=== PATIENT | female | born 1965 | race Caucasian/White ===

== ENCOUNTER 2017-05-24 13:51 | Emergency (ER) | payer OTHER ==
--- NOTE | 2017-05-24 14:41 | XR ---
EXAMINATION TYPE: XR ankle complete RT DATE OF EXAM: 05/24/2017 COMPARISON: NONE HISTORY: Pain FINDINGS: Three views of the ankle demonstrate comminuted fracture the distal fibula with displacement as well as the medial malleolus or fracture with displacement and dislocation of the ankle joint and distorti on of the ankle mortise. Cannot exclude a chip fracture off the posterior tibia. Large calcaneal spur s noted. IMPRESSION: 1. Fracture with displacement involving the distal tibia and fibula and dislocation of the ankle join t.
--- NOTE | 2017-05-24 14:43 | XR ---
EXAMINATION TYPE: XR tibia fibula RT DATE OF EXAM: 05/24/2017 COMPARISON: NONE HISTORY: Pain TECHNIQUE: Two views are submitted. FINDINGS: There displaced fractures involving the distal tibia and fibula. Displacement of the lateral malleolu s and medial malleoli fractures are seen. Cannot exclude chip fracture of the distal posterior tibia. IMPRESSION: 1. Displaced fractures involving the distal tibia and fibula with ankle dislocation.
--- NOTE | 2017-05-24 14:44 | XR ---
EXAMINATION TYPE: XR foot complete RT DATE OF EXAM: 05/24/2017 COMPARISON: NONE HISTORY: Pain TECHNIQUE: Three views are submitted. FINDINGS: There are displaced fractures involving the distal tibia and fibula. Displacement of the lateral mall eolus and medial malleoli fractures are seen. Cannot exclude chip fracture of the distal posterior ti thaddeus. Arthropathy of the first MTP joint. Calcaneal spurs noted. IMPRESSION: 1. Displaced fractures involving the distal tibia and fibula with ankle dislocation.
[2017-05-24 15:11] LABS: Glucose,Whole Blood 300 mg/dL (75-99)
[2017-05-24] MEDS ORDERED: SODIUM CHLORIDE 0.9% 1,000 ML IV ONE (15:11)
[2017-05-24] MEDS ORDERED: HYDROmorphone 1 MG/ML 1 ML SYRINGE IVP STA (15:11)
[2017-05-24] MEDS ORDERED: SODIUM CHLORIDE 0.9% 1,000 ML IV SCH (15:15)
[2017-05-24] MEDS ORDERED: PROPOFOL 10 MG/ML 20 ML VIAL IV STA (15:24)
--- NOTE | 2017-05-24 15:27 | ED ---
Lower Extremity Injury HPI - General Chief Complaint: Extremity Injury, Lower Stated Complaint: R ankle injury Time Seen by Provider: 05/24/17 14:45 Source: patient, RN notes reviewed, old records reviewed Mode of arrival: wheelchair Limitations: no limitations - History of Present Illness Initial Comments: this is a 51-year-old female presents emergency Department chief complaint of right ankle pain and swelling and dislocation. Patient reports that she has history of diabetes. Reports that she was having a low blood sugar episode and her blood sugar was 60. She reports that she felt faint, and fell. She fell she didn't lose consciousness but twisted her ankle. Patient states that she then sat on the floor for approximately 1 hour until her parents came home. They then brought her to the emergency department. Patient reports she can wiggle her toes. She reports that there is severe pain over the right ankle. Denies any previous fractures or injury to the right foot or ankle. Patient states that she has previously fallen up with Dr. christopher for orthopedic necessities. does have a history of diabetes which she does have an insulin pump. - Related Data Home Medications Medication Instructions Recorded Confirmed Glucagon Emergency Kit 1 mg IM ONCE PRN 05/24/17 05/24/17 Insulin Aspart (For Pump) [NovoLOG 0.01 unit SQ-PUMP CONTINUOUS 05/24/17 (For Pump)] PARoxetine HCL [Paxil] 40 mg PO DAILY 05/24/17 05/24/17 risperiDONE 3 mg PO HS 05/24/17 05/24/17 Previous Rx's Medication Instructions Recorded HYDROcodone/APAP 10-325MG [[place] 1 tab PO Q6H PRN #20 tab 05/24/17 10-325] Allergies Allergy/AdvReac Type Severity Reaction Status Date / Time Milk Containing Products Allergy Nausea & Verified 05/24/17 15:04 [Dairy] Vomiting Review of Systems ROS Statement: Those systems with pertinent positive or pertinent negative responses have been documented in the HPI. ROS Other: All systems not noted in ROS Statement are negative. Past Medical History Past Medical History: Diabetes Mellitus History of Any Multi-Drug Resistant Organisms: None Reported Past Surgical History: Hysterectomy, Tonsillectomy Past Psychological History: Schizophrenia Smoking Status: Never smoker Past Alcohol Use History: None Reported Past Drug Use History: None Reported General Exam - General Exam Comments Initial Comments: physical to 1-year-old female. Patient does not appear to be in any acute distress. Limitations: no limitations General appearance: alert, in no apparent distress Head exam: Present: atraumatic, normocephalic, normal inspection Eye exam: Present: normal appearance, PERRL, EOMI. Absent: scleral icterus, conjunctival injection, periorbital swelling ENT exam: Present: normal exam, mucous membranes moist Neck exam: Present: normal inspection. Absent: tenderness, meningismus, lymphadenopathy Respiratory exam: Present: normal lung sounds bilaterally. Absent: respiratory distress, wheezes, rales, rhonchi, stridor Cardiovascular Exam: Present: regular rate, normal rhythm, normal heart sounds. Absent: systolic murmur, diastolic murmur, rubs, gallop, clicks GI/Abdominal exam: Present: soft, normal bowel sounds. Absent: distended, tenderness, guarding, rebound, rigid Right Knee exam: Present: normal inspection, full ROM Lower Leg exam: Present: normal inspection, full ROM Ankle exam: Present: tenderness, swelling, dislocation. Absent: normal inspection, full ROM Foot/Toe exam: Absent: normal inspection Neurovascular tendon exam: Present: no vascular compromise Gait: observed and normal Back exam: Present: normal inspection Neurological exam: Present: alert, oriented X3, CN II-XII intact Psychiatric exam: Present: normal affect, normal mood Skin exam: Present: warm, dry, intact, normal color. Absent: rash Course Vital Signs 05/24/17 05/24/17 05/24/17 14:09 15:50 16:22 Temperature 99.3 F Pulse Rate 82 Respiratory 20 16 Rate Blood Pressure 109/54 89/57 100/54 O2 Sat by Pulse 100 99 Oximetry 05/24/17 05/24/17 05/24/17 16:36 16:46 16:58 Temperature Pulse Rate 69 74 Respiratory 16 16 16 Rate Blood Pressure 122/57 116/57 116/57 O2 Sat by Pulse 98 100 Oximetry 05/24/17 05/24/17 05/24/17 17:00 17:26 18:01 Temperature 97.4 F L 97.7 F Pulse Rate 69 67 75 Respiratory 12 16 18 Rate Blood Pressure 169/65 113/56 140/67 O2 Sat by Pulse 100 100 98 Oximetry 05/24/17 05/24/17 18:35 19:43 Temperature 97.6 F 98.0 F Pulse Rate 73 73 Respiratory 17 18 Rate Blood Pressure 109/56 106/55 O2 Sat by Pulse 99 99 Oximetry - Reevaluation(s) Reevaluation #1: 05/24/17 16:18 patient resting comfortably in bed. Patient's blood pressure is noted to be 89/ 57. Patient received another liter bolus of fluids. We will give the blood pressure murmur stable before doing conscious sedation. Reevaluation #2: 05/24/17 17:39 at this time I also discussed this with orthopedic physician payroll assistant Twila Johnson, she discussed it with Dr. Augustin. He does not feel comfortable managing this patient at this time. He would like her to be transferred to a trauma facility. Patient is resting comfortably post reduction. Reduction was noted to be satisfactory. Patient is neurovascularly intact. Dr. Augustin also noted that there is a questionable talus fracture. Recommended further evaluation with CAT scan. At this time informed family that they will be transferred to [facility]. Reevaluation #3: 05/24/17 18:57 at this time I did discuss case with Dr. Khurram Wyatt the orthopedic trauma surgeon. Patient reduction is acceptable to him, and he states that he she does not need to be transferred to the hospital this time. He feels that she is stable to be followed up in the office tomorrow and discharged with pain medication. Patient agrees to this plan. Patient will be written for pain medication and instructions. Information given for Dr. Khurram Wyatt's office. Procedures - Orthopedic Fracture Reduction Fracture #1 Side: right Fracture Reduction Location: tibia, fibula Technique: direct manipulation, traction/counter-traction Post Reduction X-rays Demonstrate: anatomical reduction Post-Reduction Neuro Exam: intact Post-Reduction Vascular Exam: intact Splint Applied: Yes (posterior and stirrup splint) Patient Tolerated Procedure: well, no complications - Procedural Sedation Procedural Sedation Start Time: 16:59 Procedural Sedation Stop Time: 17:06 Indications: fracture/dislocation reduction Preparation: nuclear monitoring technician applied, pulse oximeter IV Propofol Dose (mgs): 90 Complications: none Interventions: oxygen applied, airway repositioned, assist by BVM Patient Tolerated Procedure: well, no complications Additional Comments: Discussed with Dr. Bethea to complete procedural sedation. Medical Decision Making - Medical Decision Making there is a 51-year-old diabetic female presents emergency Department with right ankle pain and dislocation after falling. Patient reports that her blood sugar was low and she felt lightheaded. She denies any hitting her head or loss of consciousness. She reports that when she fell she twisted her ankle. She laid on the ground for approximately an hour afterwards. She rests emergency department with severe deformity of the right ankle. Pulses are intact. X-ray shows evidence of a trimalleolar fracture with dislocation. patient underwent conscious sedation with propofol administered by Dr. Bethea. I did reduce the fracture we placed the patient in a posterior and a ankle stirrup splint. Patient was first given web roll and then the splint were applied. Patient post reduction x-ray was noted to be satisfactory. Patient was neurovascularly intact post reduction. After re-reduced this orthopedic physician Dr. Augustin reports he does not want to handle a trimalleolar fracture. Patient was likely be transferred to [facility]. After discussing this with the attending orthopedic physician Dr. Khurram Wyatt or [facility], he stated there is reduction is acceptable and off and the patient does not need to be transferred for surgical evaluation. Patient will follow-up with Dr. Khurram Wyatt tomorrow in the office. Patient was discharged with pain medication and crutches. Discussed everything with the family. Patient is to be nonweightbearing and instructed the importance of following up tomorrow morning. Patient agrees to treatment plan will comply. Return parameters were discussed. - Lab Data Result diagrams: 05/24/17 15:16 05/24/17 15:16 Lab Results 05/24/17 05/24/17 05/24/17 Range/Units 15:09 15:16 15:16 WBC 9.4 (3.8-10.6) k/uL RBC 4.47 (3.80-5.40) m/uL Hgb 14.1 (11.4-16.0) gm/dL Hct 42.9 (34.0-46.0) % MCV 96.1 (80.0-100.0) fL MCH 31.6 (25.0-35.0) pg MCHC 32.9 (31.0-37.0) g/dL RDW 13.4 (11.5-15.5) % Plt Count 224 (150-450) k/uL Neutrophils % 83 % Lymphocytes % 9 % Monocytes % 6 % Eosinophils % 0 % Basophils % 0 % Neutrophils # 7.8 H (1.3-7.7) k/uL Lymphocytes # 0.9 L (1.0-4.8) k/uL Monocytes # 0.6 (0-1.0) k/uL Eosinophils # 0.0 (0-0.7) k/uL Basophils # 0.0 (0-0.2) k/uL PT (9.0-12.0) sec INR (<1.2) APTT (22.0-30.0) sec Sodium 138 (137-145) mmol/L Potassium 4.3 (3.5-5.1) mmol/L Chloride 100 (98-107) mmol/L Carbon Dioxide 24 (22-30) mmol/L Anion Gap 14 mmol/L BUN 20 H (7-17) mg/dL Creatinine 1.10 H (0.52-1.04) mg/dL Est GFR (MDRD) Af Amer >60 (>60 ml/min/1.73 sqM) Est GFR (MDRD) Non-Af 52 (>60 ml/min/1.73 sqM) Glucose 266 H (74-99) mg/dL POC Glucose (mg/dL) 300 H (75-99) mg/dL POC Glu [employer] Manager ID McDaid, Mer Calcium 9.7 (8.4-10.2) mg/dL Total Bilirubin 0.5 (0.2-1.3) mg/dL AST 26 (14-36) U/L ALT 43 (9-52) U/L Alkaline Phosphatase 54 (38-126) U/L Total Protein 7.3 (6.3-8.2) g/dL Albumin 4.5 (3.5-5.0) g/dL 05/24/17 Range/Units 15:16 WBC (3.8-10.6) k/uL RBC (3.80-5.40) m/uL Hgb (11.4-16.0) gm/dL Hct (34.0-46.0) % MCV (80.0-100.0) fL MCH (25.0-35.0) pg MCHC (31.0-37.0) g/dL RDW (11.5-15.5) % Plt Count (150-450) k/uL Neutrophils % % Lymphocytes % % Monocytes % % Eosinophils % % Basophils % % Neutrophils # (1.3-7.7) k/uL Lymphocytes # (1.0-4.8) k/uL Monocytes # (0-1.0) k/uL Eosinophils # (0-0.7) k/uL Basophils # (0-0.2) k/uL PT 11.1 (9.0-12.0) sec INR 1.1 (<1.2) APTT 22.2 (22.0-30.0) sec Sodium (137-145) mmol/L Potassium (3.5-5.1) mmol/L Chloride (98-107) mmol/L Carbon Dioxide (22-30) mmol/L Anion Gap mmol/L BUN (7-17) mg/dL Creatinine (0.52-1.04) mg/dL Est GFR (MDRD) Af Amer (>60 ml/min/1.73 sqM) Est GFR (MDRD) Non-Af (>60 ml/min/1.73 sqM) Glucose (74-99) mg/dL POC Glucose (mg/dL) (75-99) mg/dL POC Glu Indoor [employer] Manager ID Calcium (8.4-10.2) mg/dL Total Bilirubin (0.2-1.3) mg/dL AST (14-36) U/L ALT (9-52) U/L Alkaline Phosphatase (38-126) U/L Total Protein (6.3-8.2) g/dL Albumin (3.5-5.0) g/dL - Radiology Data Radiology results: report reviewed Fracture with displacement involving the distal tibia and fibula. Dislocation of the ankle joint. Displacement of the lateral malleolus and medial malleoli fracture seen. Cannot exclude chip fracture of the distal posterior tibia. Satisfactory reduction noted on the secondary x-ray. Disposition Clinical Impression: Dislocation of right ankle joint, Closed right trimalleolar fracture Disposition: HOME SELF-CARE Condition: Good Instructions: Ankle Fracture (ED) Additional Instructions: Advised to take pain medication as directed. Recommended following up tomorrow with Dr. Khurram Wyatt. His office number is [phone]. He plans to see you tomorrow in the office. Patient needs to rest, ice, and elevate the foot. Return the emergency department if any alarming signs or symptoms occur. Prescriptions: HYDROcodone/APAP 10-325MG [[place] 10-325] 1 tab PO Q6H PRN #20 tab PRN Reason: Pain Referrals: Andrea Casanova DO [Primary Care Provider] - 1-2 days Khurram Wyatt DO [REFERRING] - 1-2 days Time of Disposition: 18:58
[2017-05-24 15:36] LABS: Basophils % (A) 0 %; CH 32.4; CHCM 33.9; Eosinophils % (A) 0 %; HCT 42.9 % (34.0-46.0); HDW 2.03; HGB 14.1 gm/dL (11.4-16.0); Luc # (Auto) 0.08; Luc % (Auto) 1; Lymphocytes # (A) 0.9 k/uL (1.0-4.8); Lymphocytes % (A) 9 %; MCH 31.6 pg (25.0-35.0); MCHC 32.9 g/dL (31.0-37.0); MCV 96.1 fL (80.0-100.0); Mean Platelet Volume 7.9; Monocytes # (A) 0.6 k/uL (0-1.0); Monocytes % (A) 6 %; Neutrophils # (A) 7.8 k/uL (1.3-7.7); Neutrophils % (A) 83 %; RBC 4.47 m/uL (3.80-5.40); RDW 13.4 % (11.5-15.5); WBC 9.4 k/uL (3.8-10.6); WBC (Perox) 9.66
[2017-05-24 15:47] LABS: INR 1.1 (<1.2); Partial Thromboplastin Time 22.2 sec (22.0-30.0); Prothrombin Time 11.1 sec (9.0-12.0)
[2017-05-24 15:50] LABS: ALT 43 U/L (9-52); AST 26 U/L (14-36); Alkaline Phosphatase 54 U/L (38-126); Anion Gap 14 mmol/L; Blood Urea Nitrogen 20 mg/dL (7-17); Calcium 9.7 mg/dL (8.4-10.2); Carbon Dioxide 24 mmol/L (22-30); Chloride 100 mmol/L (98-107); Glucose 266 mg/dL (74-99); Non-African American GFR(MDRD) 52 (>60 ml/min/1.73 sqM); Potassium 4.3 mmol/L (3.5-5.1); Sodium 138 mmol/L (137-145); Total Bilirubin 0.5 mg/dL (0.2-1.3); Total Protein 7.3 g/dL (6.3-8.2)
--- NOTE | 2017-05-24 17:26 | XR ---
EXAMINATION TYPE: XR ankle limited RT DATE OF EXAM: 05/24/2017 COMPARISON: Today HISTORY: Post reduction TECHNIQUE: 2 views FINDINGS: There is good anatomic reduction of the comminuted bimalleolar fracture of the right ankle. Detail is limited by the cast. I see no complicating process. IMPRESSION: Satisfactory reduction.
[2017-05-24] MEDS ORDERED: MORPHINE SULFATE 2 MG/ML SYRINGE IVP ONE (18:04)
[2017-05-24 18:36] VITALS: PULSE 73
--- NOTE | 2017-05-24 19:08 | CT ---
EXAMINATION TYPE: CT foot RT wo con DATE OF EXAM: 05/24/2017 COMPARISON: NONE HISTORY: Right sided foot and ankle pain post injury CT DLP: 288.5 mGycm Automated exposure control for dose reduction was used. FINDINGS: There is a small chip fracture of the posterior malleolus. There is comminuted fracture of the distal fibula without significant displacement. There is a vertical fracture through the medial malleolus w ith separation up to 5 mm of the fragments. Ankle mortise is anatomic. There is no dislocation. The t alus is intact. There are plantar and Achilles calcaneal spurs. Metatarsals are intact. IMPRESSION: THERE IS TRIMALLEOLAR FRACTURE OF THE RIGHT ANKLE WITHOUT SIGNIFICANT DISPLACEMENT. COMMINUTED DISTAL FIBULA FRACTURE WITHOUT SIGNIFICANT DISPLACEMENT. SOFT TISSUE SWELLING AROUND THE ANKLE JOINT.
[2017-05-24] MEDS ORDERED: ACET/COD 300 MG/30 MG STARTER PACK 6 TAB BTL PO STA (19:13)
[2017-05-24 19:46] VITALS: BP 106/55; RESP 18; TEMP 98
--- NOTE | 2017-05-24 21:05 | ED ---
Medical Decision Making - Lab Data Result diagrams: 05/24/17 15:16 05/24/17 15:16 Lab Results 05/24/17 05/24/17 05/24/17 Range/Units 15:09 15:16 15:16 WBC 9.4 (3.8-10.6) k/uL RBC 4.47 (3.80-5.40) m/uL Hgb 14.1 (11.4-16.0) gm/dL Hct 42.9 (34.0-46.0) % MCV 96.1 (80.0-100.0) fL MCH 31.6 (25.0-35.0) pg MCHC 32.9 (31.0-37.0) g/dL RDW 13.4 (11.5-15.5) % Plt Count 224 (150-450) k/uL Neutrophils % 83 % Lymphocytes % 9 % Monocytes % 6 % Eosinophils % 0 % Basophils % 0 % Neutrophils # 7.8 H (1.3-7.7) k/uL Lymphocytes # 0.9 L (1.0-4.8) k/uL Monocytes # 0.6 (0-1.0) k/uL Eosinophils # 0.0 (0-0.7) k/uL Basophils # 0.0 (0-0.2) k/uL PT (9.0-12.0) sec INR (<1.2) APTT (22.0-30.0) sec Sodium 138 (137-145) mmol/L Potassium 4.3 (3.5-5.1) mmol/L Chloride 100 (98-107) mmol/L Carbon Dioxide 24 (22-30) mmol/L Anion Gap 14 mmol/L BUN 20 H (7-17) mg/dL Creatinine 1.10 H (0.52-1.04) mg/dL Est GFR (MDRD) Af Amer >60 (>60 ml/min/1.73 sqM) Est GFR (MDRD) Non-Af 52 (>60 ml/min/1.73 sqM) Glucose 266 H (74-99) mg/dL POC Glucose (mg/dL) 300 H (75-99) mg/dL POC Glu Applications Engineer ID McDaid, Mer Calcium 9.7 (8.4-10.2) mg/dL Total Bilirubin 0.5 (0.2-1.3) mg/dL AST 26 (14-36) U/L ALT 43 (9-52) U/L Alkaline Phosphatase 54 (38-126) U/L Total Protein 7.3 (6.3-8.2) g/dL Albumin 4.5 (3.5-5.0) g/dL 05/24/17 Range/Units 15:16 WBC (3.8-10.6) k/uL RBC (3.80-5.40) m/uL Hgb (11.4-16.0) gm/dL Hct (34.0-46.0) % MCV (80.0-100.0) fL MCH (25.0-35.0) pg MCHC (31.0-37.0) g/dL RDW (11.5-15.5) % Plt Count (150-450) k/uL Neutrophils % % Lymphocytes % % Monocytes % % Eosinophils % % Basophils % % Neutrophils # (1.3-7.7) k/uL Lymphocytes # (1.0-4.8) k/uL Monocytes # (0-1.0) k/uL Eosinophils # (0-0.7) k/uL Basophils # (0-0.2) k/uL PT 11.1 (9.0-12.0) sec INR 1.1 (<1.2) APTT 22.2 (22.0-30.0) sec Sodium (137-145) mmol/L Potassium (3.5-5.1) mmol/L Chloride (98-107) mmol/L Carbon Dioxide (22-30) mmol/L Anion Gap mmol/L BUN (7-17) mg/dL Creatinine (0.52-1.04) mg/dL Est GFR (MDRD) Af Amer (>60 ml/min/1.73 sqM) Est GFR (MDRD) Non-Af (>60 ml/min/1.73 sqM) Glucose (74-99) mg/dL POC Glucose (mg/dL) (75-99) mg/dL POC Glu Applications Engineer ID Calcium (8.4-10.2) mg/dL Total Bilirubin (0.2-1.3) mg/dL AST (14-36) U/L ALT (9-52) U/L Alkaline Phosphatase (38-126) U/L Total Protein (6.3-8.2) g/dL Albumin (3.5-5.0) g/dL Disposition Clinical Impression: Dislocation of right ankle joint, Closed right trimalleolar fracture Disposition: HOME SELF-CARE Condition: Good Instructions: Ankle Fracture (ED) Additional Instructions: Advised to take pain medication as directed. Recommended following up tomorrow with Dr. Khurram Wyatt. His office number is [phone]. He plans to see you tomorrow in the office. Patient needs to rest, ice, and elevate the foot. Return the emergency department if any alarming signs or symptoms occur. Prescriptions: HYDROcodone/APAP 10-325MG [[place] 10-325] 1 tab PO Q6H PRN #20 tab PRN Reason: Pain Referrals: Andrea Casanova DO [Primary Care Provider] - 1-2 days Khurram Wyatt DO [REFERRING] - 1-2 days Procedures - Procedural Sedation Indications: fracture/dislocation reduction ASA Class: I Mallampati Airway Score: 1 Preparation: school lunch monitor applied, pulse oximeter Other Medications Used: Propofol Complications: none Patient Tolerated Procedure: well, no complications Additional Comments: 15 minutes
== END 2017-05-24 20:05 | disposition home or self-care (01) ==
LOC: EC 13:51
DX: S82.851A Displaced trimalleolar fracture of right lower leg, initial encounter for closed fracture (principal); E11.9 Type 2 diabetes mellitus without complications; F20.9 Schizophrenia, unspecified; Z91.011 Allergy to milk products; Z79.4 Long term (current) use of insulin; Z79.899 Other long term (current) drug therapy; X50.1XXA Overexertion from prolonged static or awkward postures, initial encounter
CPT/HCPCS: 99284; 27818; 99152; 96374; 36415; 80053; 85025; 85610; 85730; 73590; 73600; 73610; 73630; 73700; J2270; J1170; J2704

== ENCOUNTER → 2017-09-01 | Outpatient (CLI) | payer OTHER ==
--- NOTE | 2017-09-02 08:04 | MM ---
Reason for exam: screening (asymptomatic). Last mammogram was performed 1 year and 6 months ago. History: Patient is nulliparous. Family history of breast cancer in grandmother. Physical Findings: A clinical breast exam by your physician is recommended on an annual basis and results should be correlated with mammographic findings. MG Screening Mammo w CAD Bilateral CC and MLO view(s) were taken. Prior study comparison: February 28, 2016, bilateral MG screening mammo w CAD. February 26, 2015, bilateral MG screening mammo w CAD. There is chronic nodularity in the right breast. No significant changes when compared with prior studies. ASSESSMENT: Benign, BI-RAD 2 RECOMMENDATION: Routine screening mammogram of both breasts in 1 year.
== END | disposition home or self-care (01) ==
LOC: RADMAMWWP 10:47
PROVIDERS: ATTEND Family Medicine
DX: Z12.31 Encounter for screening mammogram for malignant neoplasm of breast (principal)
CPT/HCPCS: 77067

== ENCOUNTER → 2017-09-15 | Outpatient (CLI) | payer OTHER ==
--- NOTE | 2017-09-16 08:22 | BD ---
EXAMINATION TYPE: MG DEXA axial skeleton. DATE OF EXAM: 09/15/2017 COMPARISON: NONE CLINICAL HISTORY: 51-year-old female personal history of healed traumatic fracture, postmenopausal sc reening Height: 5 FT 4 IN Weight: 182 FRAX RISK QUESTIONS: Alcohol (3 or more units per day): NO Family History (Parent hip fracture): NO Glucocorticoids (More than 3mos): NO (Ex: prednisone, prednisolone, methylprednisolone, dexamethasone, and hydrocortisone). History of Fracture in Adulthood: YES Secondary Osteoporosis: 1. Type 1 Diabetes: YES 2. Hyperthyroidism: NO 3. Menopause before 45: UNSURE 4. Malnutrition: NO 5. Chronic liver disease: NO Rheumatoid Arthritis: NO Current Tobacco Use: NO RISK FACTORS HISTORY OF: Family History of Osteoporosis: YES Postmenopausal woman: PT STATES NOT SURE IF IT WAS TOTAL OR PARTIAL Lost more than 2 inches in height since high school: YES MEDICATIONS: Additional Medications: INSULIN,RISPERDAL,PAXIL Additional History: RECENT RT ANKLE FX WITH SURG EXAM MEASUREMENTS: Bone mineral densitometry was performed using the [employer] System. Bone mineral density as measured about the Lumbar spine is: ----- L1-L4(G/cm2): 1.378 T Score Values are as follows: ----- L2: 2.2 ----- L3: 2.7 ----- L4: 1.1 ----- L1-L4: 1.7 Bone mineral density has: DECREASED -5.4 % since study of: 2014 Bone mineral density about the R hip (g/cm2): 0.913 Bone mineral density about the L hip (g/cm2): 0.891 T Score values are as follows: -----R Neck: -0.9 -----L Neck: -1.1 -----R Total: -0.6 -----L Total: -0.6 Bone mineral density has: DECREASED -6.3 % since study of: 2014 IMPRESSION: Osteopenia (T Score between -2.5 and -1 as noted by T score values There is slightly increased risk of fracture and the patient may be considered for treatment. Re-Screen 2-5 years. NOTE: T-SCORE=SD OF THE YOUNG ADULT MEAN.
== END | disposition home or self-care (01) ==
LOC: RADBDWWP 13:19
PROVIDERS: ATTEND Family Medicine
DX: M85.89 Other specified disorders of bone density and structure, multiple sites (principal); Z87.81 Personal history of (healed) traumatic fracture
CPT/HCPCS: 77080

== ENCOUNTER → 2018-04-25 | Outpatient (CLI) | payer OTHER ==
--- NOTE | 2018-04-25 18:06 | MR ---
EXAMINATION TYPE: MR brain wo con DATE OF EXAM: 04/25/2018 COMPARISON: NONE HISTORY: 52-year-old female headaches, Migraines TECHNIQUE: Multiplanar, multisequence images of the brain and brainstem were acquired before without IV contrast. Diffusion weighted imaging is performed. FINDINGS: No evidence for acute infarction, hemorrhage, mass, mass effect, midline shift, herniation, effacemen t of basal cisterns, or extra-axial fluid collection. The ventricles and sulci are age-appropriate. Major intracranial flow voids are intact. T2/FLAIR weighted sequences show a solitary right signal focus in the left putamen measuring 7 x 4 mm . Some scattered pulsation artifacts are present. Midline structures demonstrate normal morphology. The craniocervical junction is normal. Trace mucosal thickening within the ethmoid air cells and maxillary sinuses. IMPRESSION: 1. No acute intracranial abnormality seen. 2. Solitary bright signal focus located in the left putamen measures 7 x 4 mm. This could represent a n old lacunar infarct or prominent perivascular space. 3. Otherwise, no white matter signal abnormalities seen. 4. Mild chronic ethmoid and maxillary sinus disease.
== END | disposition home or self-care (01) ==
LOC: RADMRIMAIN 13:00
PROVIDERS: ATTEND Family Medicine
DX: R90.89 Other abnormal findings on diagnostic imaging of central nervous system (principal); R51 Headache
CPT/HCPCS: 70551

== ENCOUNTER → 2018-10-06 | Outpatient (CLI) | payer OTHER ==
[2018-10-06 11:54] LABS: Appearance,Urine Clear (Clear); Basophils % (A) 1 %; Bilirubin,Urine Negative (Negative); Blood,Urine Negative (Negative); Color,Urine Light Yellow; Eosinophils # (A) 0.1 k/uL (0-0.7); Eosinophils % (A) 2 %; Glucose,Urine (UA) Negative (Negative); HCT 40.5 % (34.0-46.0); HGB 13.2 gm/dL (11.4-16.0); Ketones,Urine Negative (Negative); Leukocyte Esterase,Urine Negative (Negative); Lymphocytes # (A) 1.6 k/uL (1.0-4.8); Lymphocytes % (A) 42 %; MCHC 32.5 g/dL (31.0-37.0); MCV 95.3 fL (80.0-100.0); Mean Platelet Volume 7.2; Monocytes # (A) 0.3 k/uL (0-1.0); Monocytes % (A) 9 %; Neutrophils # (A) 1.6 k/uL (1.3-7.7); Neutrophils % (A) 43 %; Nitrite,Urine Negative (Negative); PH, Urine 7.5 (5.0-8.0); Platelet Count 188 k/uL (150-450); Protein,Urine Negative (Negative); RBC 4.25 m/uL (3.80-5.40); RDW 12.7 % (11.5-15.5); Specific Gravity,Urine 1.006 (1.001-1.035); Urobilinogen,Urine <2.0 mg/dL (<2.0); WBC 3.7 k/uL (3.8-10.6)
[2018-10-06 19:14] LABS: Vitamin D 25 Hydroxy 42.1 ng/mL (30.0-100.0)
[2018-10-06 19:21] LABS: Albumin 4.6 g/dL (3.80-4.90); Anion Gap 6.7 mmol/L (4.00-12.00); Calcium 9.9 mg/dL (8.7-10.3); Carbon Dioxide 28.3 mmol/L (21.6-31.8); Globulin 2.3 g/dL (1.6-3.3); LDL Cholesterol,Calculated 98.4 mg/dL (0.0-131.0); Total Bilirubin 0.3 mg/dL (0.2-1.2); Total Protein 6.9 g/dL (6.2-8.2); VLDL Calculation 14.6 mg/dL (5.00-40.00)
[2018-10-06 20:06] LABS: Hepatitis C IgG Antibody Non-Reactive (Non-Reactive)
== END | disposition home or self-care (01) ==
LOC: LABWHC1 10:21
PROVIDERS: ATTEND Physician Assistant
DX: Z00.00 Encounter for general adult medical examination without abnormal findings (principal); D70.8 Other neutropenia; Z79.899 Other long term (current) drug therapy
CPT/HCPCS: 36415; 80053; 80061; 81003; 82306; 83036; 84443; 85025; 86803

== ENCOUNTER → 2018-10-13 | Outpatient (CLI) | payer OTHER ==
--- NOTE | 2018-10-14 09:17 | MM ---
Reason for exam: screening (asymptomatic). Last mammogram was performed 1 year and 1 month ago. History: Patient is nulliparous. Family history of breast cancer in maternal grandmother. Physical Findings: A clinical breast exam by your physician is recommended on an annual basis and results should be correlated with mammographic findings. MG Screening Mammo w CAD Bilateral CC and MLO view(s) were taken. Prior study comparison: September 01, 2017, bilateral MG screening mammo w CAD. February 28, 2016, bilateral MG screening mammo w CAD. The breast tissue is heterogeneously dense. This may lower the sensitivity of mammography. No suspicious abnormality. No significant changes when compared with prior studies. ASSESSMENT: Negative, BI-RAD 1 RECOMMENDATION: Routine screening mammogram of both breasts in 1 year.
== END | disposition home or self-care (01) ==
LOC: RADMAMWWP 14:54
PROVIDERS: ATTEND Family Medicine
DX: Z12.31 Encounter for screening mammogram for malignant neoplasm of breast (principal)
CPT/HCPCS: 77067

== ENCOUNTER → 2018-10-27 | Outpatient (CLI) | payer OTHER ==
[2018-10-27 13:56] LABS: HCT 41.9 % (34.0-46.0); HGB 13.5 gm/dL (11.4-16.0); MCH 31.3 pg (25.0-35.0); MCHC 32.2 g/dL (31.0-37.0); MCV 97.1 fL (80.0-100.0); Platelet Count 196 k/uL (150-450); RBC 4.32 m/uL (3.80-5.40); RDW 12.9 % (11.5-15.5); WBC 3.6 k/uL (3.8-10.6)
[2018-10-27 15:47] LABS: Lymphocytes # (M) 1.91 k/uL (1.0-4.8); Monocytes # (M) 0.32 k/uL (0-1.0); Neutrophils # (M) 1.37 k/uL (1.3-7.7); Neutrophils % (M) 38 %; Nucleated Red Blood Cells 0 /100 WBC (0-0); Total Cells Counted 100
[2018-10-27 15:48] LABS: Anisocytosis (M) Present
== END | disposition home or self-care (01) ==
LOC: LABWHC1 12:12
PROVIDERS: ATTEND Physician Assistant
DX: Z51.81 Encounter for therapeutic drug level monitoring (principal); Z79.899 Other long term (current) drug therapy
CPT/HCPCS: 36415; 85025

== ENCOUNTER → 2018-12-08 | Outpatient (CLI) | payer OTHER ==
[2018-12-08 12:03] LABS: Basophils % (A) 1 %; Eosinophils # (A) 0.1 k/uL (0-0.7); Eosinophils % (A) 3 %; HCT 40.4 % (34.0-46.0); HGB 13.8 gm/dL (11.4-16.0); Lymphocytes # (A) 1.7 k/uL (1.0-4.8); Lymphocytes % (A) 45 %; MCH 32.7 pg (25.0-35.0); MCHC 34.2 g/dL (31.0-37.0); MCV 95.6 fL (80.0-100.0); Mean Platelet Volume 7.9; Monocytes # (A) 0.4 k/uL (0-1.0); Monocytes % (A) 9 %; Neutrophils # (A) 1.5 k/uL (1.3-7.7); Neutrophils % (A) 38 %; Platelet Count 213 k/uL (150-450); RBC 4.22 m/uL (3.80-5.40); RDW 13.6 % (11.5-15.5); WBC 3.9 k/uL (3.8-10.6)
== END | disposition home or self-care (01) ==
LOC: LABWHC1 10:38
PROVIDERS: ATTEND Physician Assistant
DX: D70.8 Other neutropenia (principal)
CPT/HCPCS: 36415; 85025

== ENCOUNTER → 2019-11-02 | Outpatient (CLI) | payer OTHER ==
--- NOTE | 2019-11-06 09:12 | MM ---
Reason for exam: screening (asymptomatic). Last mammogram was performed 1 year and 1 month ago. History: Patient is postmenopausal and is nulliparous. Family history of breast cancer in maternal grandmother. Physical Findings: A clinical breast exam by your physician is recommended on an annual basis and results should be correlated with mammographic findings. MG Screening Mammo w CAD Bilateral CC and MLO view(s) were taken. Prior study comparison: October 13, 2018, bilateral MG screening mammo w CAD. September 01, 2017, bilateral MG screening mammo w CAD. There are scattered fibroglandular densities. No significant changes when compared with prior studies. ASSESSMENT: Benign, BI-RAD 2 RECOMMENDATION: Routine screening mammogram of both breasts in 1 year.
== END | disposition home or self-care (01) ==
LOC: RADMAMWWP 13:23
PROVIDERS: ATTEND Family Medicine
DX: Z12.31 Encounter for screening mammogram for malignant neoplasm of breast (principal)
CPT/HCPCS: 77067

== ENCOUNTER → 2020-08-13 | Outpatient (CLI) | payer OTHER ==
--- NOTE | 2020-08-13 16:05 | CONS ---
CONSULTATION REASON FOR CONSULTATION: Sleep apnea. This is a 54-year-old female patient referred to me for sleep apnea evaluation. The patient is a very poor historian. She has paranoid schizophrenia. She is excessively fatigued, tired and sleepy during the day and she came in for further investigation. She goes to bed between 8 and 9 p.m. and she wakes up at 7 a.m. in the morning. She takes naps during the day. Note that the patient is known to me from previous evaluations in my office. Her weight has been essentially stable. She wakes up frequently in the middle of the night. No sleep paralysis. No hallucinations. No cataplexy. She does have occasional dreamlike images/hallucinations, which could be related to her underlying psychiatric disorder. She has problems with memory, yet this is not new, as the patient has had chronic problems with short-term memory and concentration. PAST MEDICAL HISTORY: Her past medical history includes a history of depression disorder, paranoid schizophrenia, short-term memory deficits, hyperlipidemia, chronic kidney disease, type 1 diabetes mellitus, diabetic gastroparesis due to type 1 diabetes mellitus, in addition to previous history of aspiration pneumonia or silent aspiration. PAST SURGICAL HISTORY: Past surgical history includes hysterectomy and tonsillectomy. DRUG ALLERGIES: NOT KNOWN. OUTPATIENT MEDICATION LIST: Outpatient medication list includes a glucagon kit, Haldol 5 mg in 1 mL solution, and the patient receives 0.4 mL injection every 8 hours IM, insulin pump, Lexapro 20 mg p.o. daily. SOCIAL HISTORY: The patient is a nonsmoker. No history of alcoholism. No history of IV drugs. She lives with her parents. FAMILY HISTORY: Maternal grandmother had breast cancer. An uncle had type 1 diabetes mellitus. REVIEW OF SYSTEMS: Fourteen-point review of systems was done. Positive findings were all mentioned above in the history of present illness. This patient in general has chronic sinus problems. She has chronic pain in her legs that got worse after she broke an ankle. She has chronic weakness and tiredness. She has obvious problems with memory, concentration, short-term memory loss and chronic anxiety. She does have underlying paranoid ideation and occasional hallucinations. PHYSICAL EXAMINATION: BP is 112/62, pulse 60, respirations 16, temperature 98.2, saturation 99% on room air. Height is 5 feet 5 inches, weight 181, BMI 30.2. Neck size is 17 inches. GENERAL APPEARANCE: Calm, comfortable. No acute distress. HEAD: Atraumatic, normocephalic. NECK: Supple. No JVD. No goiter or neck masses. Examination of the head and neck showed that the patient has dentures. LUNGS: Diminished; otherwise clear. HEART: Heart sounds are regular rate and rhythm. Normal S1, S2. No S3, S4. No murmurs. ABDOMEN: Soft, nontender. No organomegaly. EXTREMITIES: No edema. No cyanosis or clubbing. NEUROLOGIC: Awake and alert. No focal neurological deficit. She is slow in her movements. PSYCHIATRIC: She has positive schizophrenia, anxiety and depression. IMPRESSION: 1. Chronic hypersomnia and sleepiness. Sleep apnea is doubtful, although it cannot be completely ruled out. 2. Paranoid schizophrenia, maintained on Haldol. 3. Chronic anxiety and depression, maintained on Lexapro. 4. Diabetes mellitus, type 1. 5. Diabetic gastroparesis. 6. Hyperlipidemia. 7. Chronic kidney disease. 8. History of silent aspiration. PLAN: The patient has paranoid schizophrenia. She would not be able to come and undergo a full-night polysomnogram here in the office. I am not sure if she is going to be able to operate a home sleep study unit. I am going to bring the patient back to the sleep center to educate her and instruct her on how to put the home sleep study unit monitors on, and if she is able to do so will proceed with home sleep study testing to rule out the patient for any form of sleep breathing disorder. Will continue to follow. MMODL / IJN: [id number] /
== END | disposition home or self-care (01) ==
LOC: SLEEP 13:11
PROVIDERS: ATTEND Internal Medicine Critical Care Medicine
DX: G47.10 Hypersomnia, unspecified (principal); F20.0 Paranoid schizophrenia; F32.9 Major depressive disorder, single episode, unspecified; F41.9 Anxiety disorder, unspecified; E11.43 Type 2 diabetes mellitus with diabetic autonomic (poly)neuropathy; K31.84 Gastroparesis; N18.9 Chronic kidney disease, unspecified; E78.5 Hyperlipidemia, unspecified; E11.22 Type 2 diabetes mellitus with diabetic chronic kidney disease; Z87.01 Personal history of pneumonia (recurrent); Z99.89 Dependence on other enabling machines and devices
CPT/HCPCS: 99211

== ENCOUNTER → 2020-09-18 | Outpatient (CLI) | payer OTHER ==
--- NOTE | 2020-09-18 11:49 | FL ---
EXAMINATION TYPE: FL barium swallow w video DATE OF EXAM: 09/18/2020 MODIFIED SWALLOW / DEGLUTITION STUDY CLINICAL HISTORY: Dysphagia. Cough. TECHNIQUE: Deglutition study is performed utilizing thin liquid barium, honey and nectar thick liqui d barium, barium thick applesauce, and barium coated cracker. Total 90 seconds fluoroscopic time util ized during procedure. 0 spot images are saved. COMPARISON: Prior modified barium swallow report December 11, 2013. FINDINGS: The oral and pharyngeal phases show satisfactory initiation and propagation with all modali ties tested. Satisfactory mastication is seen with solid modalities tested. There is single episode of transient penetration with thin liquid barium. No repeat penetration or aspiration identified with chin tuck procedure. More viscous modality show no penetration or aspiration. Mild pharyngeal residu al with more viscous modalities IMPRESSION: No aspiration observed. Please refer to speech therapist notes for further details if ne cessary.
== END | disposition home or self-care (01) ==
LOC: RADFLMAIN 09-13 13:36
PROVIDERS: ATTEND Internal Medicine Critical Care Medicine
DX: R05 Cough (principal)
CPT/HCPCS: 74230

== ENCOUNTER → 2021-02-10 | Outpatient (CLI) | payer OTHER ==
--- NOTE | 2021-02-12 14:57 | MM ---
Reason for exam: screening (asymptomatic). Last mammogram was performed 1 year and 3 months ago. History: Patient is postmenopausal and is nulliparous. Family history of breast cancer in maternal grandmother. Physical Findings: A clinical breast exam by your physician is recommended on an annual basis and results should be correlated with mammographic findings. MG Screening Mammo w CAD Bilateral CC and MLO view(s) were taken. Prior study comparison: November 02, 2019, bilateral MG screening mammo w CAD. October 13, 2018, bilateral MG screening mammo w CAD. There are scattered fibroglandular densities. No significant changes when compared with prior studies. ASSESSMENT: Benign, BI-RAD 2 RECOMMENDATION: Routine screening mammogram of both breasts in 1 year.
== END | disposition home or self-care (01) ==
LOC: RADMAMWWP 11:59
PROVIDERS: ATTEND Family Medicine
DX: Z12.31 Encounter for screening mammogram for malignant neoplasm of breast (principal); Z78.0 Asymptomatic menopausal state; Z80.3 Family history of malignant neoplasm of breast
CPT/HCPCS: 77067

== ENCOUNTER → 2021-10-14 | Outpatient (CLI) | payer OTHER ==
--- NOTE | 2021-10-15 08:25 | US ---
EXAMINATION TYPE: US kidneys/renal and bladder DATE OF EXAM: 10/14/2021 COMPARISON: US CLINICAL HISTORY: N18.32 CKD STAGE 3. CKD EXAM MEASUREMENTS: Right Kidney: 9.8 x 4.5 x 5.6 cm Left Kidney: 9.8 x 4.8 x 4.2 cm Right Kidney: Unable to visualize upper pole= cyst mid= 2.3 x 1.6 x 2.0 cm Left Kidney: No evidence of hydro, cyst mid with septation= 1.4 x 1.2 x 1.9 cm Bladder: wnl Bilateral Jets seen: Only left jet visualized There is no evidence for hydronephrosis at this point in time. No nephrolithiasis is seen. No solid masses are identified. The urinary bladder is anechoic. IMPRESSION: Renal cystic changes as noted.
== END | disposition home or self-care (01) ==
LOC: RADUSWWP 16:10
PROVIDERS: ATTEND Family Medicine
DX: N18.30 Chronic kidney disease, stage 3 unspecified (principal); N28.1 Cyst of kidney, acquired
CPT/HCPCS: 76770

== ENCOUNTER 2021-10-27 11:47 | Emergency (ER) | payer OTHER ==
[2021-10-27 12:02] VITALS: BP 99/66; PULSE 67; RESP 18; TEMP 97.1
--- NOTE | 2021-10-27 13:08 | XR ---
EXAMINATION TYPE: XR foot limited RT, XR ankle complete RT DATE OF EXAM: 10/27/2021 CLINICAL HISTORY: Pain after fall injury TECHNIQUE: Frontal, lateral and oblique images of the right ankle and foot are obtained. COMPARISON: Right foot x-ray May 24, 2017. FINDINGS: There is no acute fracture/dislocation evident in the right ankle. The ankle mortise appe ars within normal limits. Lateral fixating plate with healed fracture. 2 fixating screws through med ial malleolus healed fracture. The overlying soft tissue appears unremarkable. There is no acute fracture or dislocation evident in the right foot. Mild to moderate narrowing firs t metatarsophalangeal joint redemonstrated. Mild overlying arterial vascular calcification. Moderate to large size inferior calcaneal spur. IMPRESSION: There is no acute fracture or dislocation in the right ankle or foot.
--- NOTE | 2021-10-27 13:11 | ED ---
General Adult HPI - General Chief complaint: Extremity Injury, Lower Stated complaint: fall, diabetic issue Time Seen by Provider: 10/27/21 12:08 Source: patient Mode of arrival: wheelchair Limitations: no limitations - History of Present Illness Initial comments: This 56-year-old female presents emergency Department with right ankle and foot pain after twisting her ankle the other day and following. Patient states she did have low blood sugar the other day at the time of her fall. Patient states she has had diabetes since age of 8 and states she is on insulin for this. Patient states she checks her sugar about 10 times a day and uses her insulin as directed. Patient states since the fall her sugar has been stable. Patient denies hitting her head or losing consciousness during or after her fall. Patient states at the time of the fall she was walking and tripped, twisting her right ankle. Patient states she has broke this ankle before in the past. Patient states she was able to walk on and bear weight on this leg/foot up until yesterday when she walked and felt a crack. Patient states since yesterday she began using a walker at home and not bearing as much weight on it due to having increased pain since she felt a crack. Patient denies being on any blood thinners. Patient states she has taken Tylenol which has relieved some of her pain. Patient denies any loss of sensation to right leg or foot. Patient denies any chest pain, shortness of breath, abdominal pain, nausea, vomiting, headache, lightheadedness, dizziness, change in bowel or bladder, back pain. - Related Data Home Medications Medication Instructions Recorded Confirmed Insulin Aspart (For Pump) [NovoLOG 0.01 unit SQ-PUMP CONTINUOUS 05/24/17 10/27/21 (For Pump)] Escitalopram Oxalate [Lexapro] 20 mg PO DAILY 10/27/21 10/27/21 Haloperidol Decanoate [Haldol D] 200 mg IM Q14D 10/27/21 10/27/21 Allergies Allergy/AdvReac Type Severity Reaction Status Date / Time Milk Containing Products AdvReac Nausea & Verified 10/27/21 13:19 [Dairy] Vomiting & Diarrhea Review of Systems ROS Statement: Those systems with pertinent positive or pertinent negative responses have been documented in the HPI. ROS Other: All systems not noted in ROS Statement are negative. Past Medical History Past Medical History: Diabetes Mellitus History of Any Multi-Drug Resistant Organisms: None Reported Past Surgical History: Hysterectomy, Tonsillectomy Past Psychological History: Schizophrenia Smoking Status: Never smoker Past Alcohol Use History: None Reported Past Drug Use History: None Reported General Exam Limitations: no limitations General appearance: alert, in no apparent distress Head exam: Present: atraumatic, normocephalic Eye exam: Present: normal appearance, PERRL, EOMI Pupils: Present: normal accommodation ENT exam: Present: mucous membranes moist Neck exam: Present: full ROM Respiratory exam: Present: normal lung sounds bilaterally. Absent: respiratory distress, wheezes, rales, rhonchi, stridor Cardiovascular Exam: Present: regular rate, normal rhythm, normal heart sounds. Absent: systolic murmur, diastolic murmur, rubs, gallop, clicks GI/Abdominal exam: Present: soft, normal bowel sounds. Absent: distended, tenderness, guarding, rebound, rigid Extremities exam: Present: full ROM, normal capillary refill, pedal edema (Mild swelling to lateral malleolus and dorsal surface of right foot), other (Ecchymosis noted to dorsal surface of foot. Pedal pulses intact. Sensation intact. Pain over the metatarsals one through 4. Slight pain to posterior right ankle to palpation. Patient able to push and pull against resistance however does cause pain. ). Absent: calf tenderness Back exam: Present: full ROM. Absent: CVA tenderness (R), CVA tenderness (L), paraspinal tenderness, vertebral tenderness Neurological exam: Present: alert, oriented X3, CN II-XII intact Psychiatric exam: Present: normal affect, normal mood Skin exam: Present: warm, dry, intact, normal color. Absent: rash Course Vital Signs 10/27/21 11:59 Temperature 97.1 F L Pulse Rate 67 Respiratory 18 Rate Blood Pressure 99/66 O2 Sat by Pulse 100 Oximetry Procedures - Orthopedic Splinting/Casting Injury #1 Side: right Lower Extremity Injury Location: ankle Lower Extremity Immobilizer: stirrup splint, Robin wrap, synthetic pre-padded splint Other Orthopedic Equipment: other (Patient has a walker at home) Medical Decision Making - Medical Decision Making This 56-year-old female presents emergency Department with right ankle and foot pain after her fall on Wednesday afternoon. X-ray of right foot and ankle without any fractures or dislocations noted. Stirrup splint was placed over her right ankle along with robin bandage. Patient instructed to ice and elevate right foot 3 times a day. Patient instructed she is able to weight bear as tolerated and continue to use her walker at home until she follows up with her primary care provider towards end of the week. Patient instructed to follow up with primary care provider in next 2-3 days. Patient does have walker and wheelchair at home that she has been using. Strict return precautions were discussed. Patient verbally agreed to plan. Patient sent home in stable condition. Case discussed with my attending, Dr. Reynoso. - Lab Data Lab Results 10/27/21 Range/Units 13:43 POC Glucose (mg/dL) 75 (75-99) mg/dL POC Glu General Office Associate ID Adrianna Morrison - Radiology Data Radiology results: report reviewed, image reviewed Disposition Clinical Impression: Right ankle sprain Disposition: HOME SELF-CARE Condition: Stable Additional Instructions: Please follow-up with your primary care provider in next 2-3 days. Return to the emergency department with any new, worsening, or concerning symptoms. Ice and elevate leg on and off throughout the day. Take Tylenol as directed for pain relief. Is patient prescribed a controlled substance at d/c from ED?: No Referrals: Andrea Casanova DO [Primary Care Provider] - 1-2 days Time of Disposition: 13:43
[2021-10-27 13:44] LABS: Glucose,Whole Blood 75 mg/dL (75-99)
== END 2021-10-27 14:11 | disposition home or self-care (01) ==
LOC: EC 11:47
DX: S93.401A Sprain of unspecified ligament of right ankle, initial encounter (principal); E11.9 Type 2 diabetes mellitus without complications; F20.9 Schizophrenia, unspecified; Z79.4 Long term (current) use of insulin; Z79.899 Other long term (current) drug therapy; X50.1XXA Overexertion from prolonged static or awkward postures, initial encounter; W01.0XXA Fall on same level from slipping, tripping and stumbling without subsequent striking against object, initial encounter; Y93.01 Activity, walking, marching and hiking
CPT/HCPCS: 36415; 99283

== ENCOUNTER → 2022-02-12 | Outpatient (CLI) | payer OTHER ==
--- NOTE | 2022-02-14 12:13 | MM ---
Reason for Exam: Screening (asymptomatic). Last screening mammogram was performed 12 month(s) ago. Patient History: Menarche at age 12. Patient has no children. Hysterectomy at age 24. Postmenopausal. Maternal grandmother had breast cancer. Risk Values: Gretta 5 year model risk: 1.4%. NCI Lifetime model risk: 8.7%. Prior Study Comparison: 10/13/2018 Bilateral Screening Mammogram, [facility]. 11/02/2019 Bilateral Screening Mammogram, [facility]. 02/10/2021 Bilateral Screening Mammogram, [facility]. Tissue Density: The breast tissue is heterogeneously dense. This may lower the sensitivity of mammography. Findings: Analyzed By CAD. Chronic nodularity lateral right breast at a middle depth. A few scattered benign oil cyst calcifications on both sides. Left subareolar MLO view, asymmetric density is more defined. This may represent superimposition shadow but further evaluation is recommended. Overall Assessment: Incomplete: need additional imaging evaluation, BI-RAD 0 Management: Special View Mammogram of the left breast. 1. Additional views left breast to include spot 3-D MLO, spot 3-D CC, and 3-D lateral views. 2. Targeted left breast ultrasound if any persisting abnormality. Electronically signed and approved by: Adolfo Sainz M.D. Radiologist
== END | disposition home or self-care (01) ==
LOC: RADMAMWWP 12:19
PROVIDERS: ATTEND Family Medicine
DX: Z12.31 Encounter for screening mammogram for malignant neoplasm of breast (principal); Z78.0 Asymptomatic menopausal state; Z80.3 Family history of malignant neoplasm of breast
CPT/HCPCS: 77067

== ENCOUNTER → 2022-02-20 | Outpatient (CLI) | payer OTHER ==
--- NOTE | 2022-02-20 10:40 | MM ---
Reason for Exam: Additional evaluation requested from abnormal screening. Last screening mammogram was performed less than 1 month ago. Patient History: Menarche at age 12. Patient has no children. Hysterectomy at age 24. Postmenopausal. Maternal grandmother had breast cancer. Risk Values: Gretta 5 year model risk: 1.4%. NCI Lifetime model risk: 8.7%. Prior Study Comparison: 11/02/2019 Bilateral Screening Mammogram, [facility]. 02/10/2021 Bilateral Screening Mammogram, [facility]. 02/12/2022 Bilateral MG screening mammo w CAD, [facility]. Tissue Density: Left: The breast tissue is heterogeneously dense. This may lower the sensitivity of mammography. Findings: Analyzed By CAD. No persistent nodule identified. Overall Assessment: Negative, BI-RAD 1 Management: Screening Mammogram of both breasts in 1 year. A clinical breast exam by your physician is recommended on an annual basis and results should be correlated with mammographic findings. This exam should not preclude additional follow-up of suspicious palpable abnormalities. Results were given to the patient verbally at the time of exam. Electronically signed and approved by: Damian Rizzo M.D. Radiologis
== END | disposition home or self-care (01) ==
LOC: RADMAMWWP 10:16
PROVIDERS: ATTEND Family Medicine
DX: R92.8 Other abnormal and inconclusive findings on diagnostic imaging of breast (principal); Z78.0 Asymptomatic menopausal state; Z80.3 Family history of malignant neoplasm of breast
CPT/HCPCS: 77065

== ENCOUNTER 2022-07-11 22:18 | Emergency (ER) | payer OTHER ==
[2022-07-11 22:29] VITALS: TEMP 97.3
[2022-07-11 22:31] LABS: Glucose,Whole Blood 167 mg/dL (70-110)
[2022-07-11] MEDS ORDERED: ACETAMINOPHEN TAB 325 MG TAB PO STA (23:20)
--- NOTE | 2022-07-11 23:24 | ED ---
General Adult HPI - General Chief complaint: Recheck/Abnormal Lab/Rx Stated complaint: Hypoglycemia Time Seen by Provider: 07/11/22 22:41 Source: patient, EMS Mode of arrival: EMS - History of Present Illness Initial comments: This patient is a 56-year-old woman who presents to have evaluation for suspected hypoglycemia. The history is given by the patient and her mother. They do live together. The patient uses an insulin pump and reportedly took her evening dose of medication but did not eat her usual snack. Patient's mother heard her making abnormal sounds and when she went to check found the patient was sweaty, confused and not really responding to her. Patient's mother went next door and phoned EMS who found the patient to have blood sugar in the 50s. They did administer dextrose and the patient became more alert. The patient does not remember the episode. When I interview the patient, she states that she has a little bit of frontal headache, but otherwise denies complaints. Onset/Timin -: hour(s) Location: head Radiation: non-radiation Quality: dull Consistency: constant Improves with: none Worsens with: none Associated Symptoms: denies other symptoms - Related Data Home Medications Medication Instructions Recorded Confirmed Insulin Aspart (For Pump) [NovoLOG 0.01 unit SQ-PUMP CONTINUOUS 05/24/17 10/27/21 (For Pump)] Escitalopram Oxalate [Lexapro] 20 mg PO DAILY 10/27/21 10/27/21 Haloperidol Decanoate [Haldol D] 200 mg IM Q14D 10/27/21 10/27/21 Allergies Allergy/AdvReac Type Severity Reaction Status Date / Time Milk Containing Products AdvReac Nausea & Verified 07/11/22 22:29 [Dairy] Vomiting & Diarrhea Review of Systems ROS Statement: Those systems with pertinent positive or pertinent negative responses have been documented in the HPI. ROS Other: All systems not noted in ROS Statement are negative. Constitutional: Denies: fever, chills, weakness Eyes: Denies: vision change Respiratory: Denies: cough, dyspnea Cardiovascular: Denies: chest pain, palpitations Gastrointestinal: Denies: abdominal pain, nausea, vomiting Genitourinary: Denies: dysuria, hematuria Musculoskeletal: Denies: back pain Skin: Denies: rash Neurological: Reports: as per HPI, headache, confusion. Denies: weakness, numbness, paresthesias Past Medical History Past Medical History: Diabetes Mellitus History of Any Multi-Drug Resistant Organisms: None Reported Past Surgical History: Hysterectomy, Orthopedic Surgery, Tonsillectomy Additional Past Surgical History / Comment(s): Right ankle repair Past Psychological History: Depression, Schizophrenia Smoking Status: Never smoker Past Alcohol Use History: None Reported Past Drug Use History: None Reported General Exam General appearance: alert, in no apparent distress Head exam: Present: atraumatic, normocephalic Eye exam: Present: normal appearance. Absent: scleral icterus, conjunctival injection Neck exam: Present: normal inspection, full ROM Respiratory exam: Present: normal lung sounds bilaterally. Absent: respiratory distress, wheezes, rales, rhonchi, stridor Cardiovascular Exam: Present: regular rate, normal rhythm, normal heart sounds. Absent: systolic murmur, diastolic murmur, rubs, gallop GI/Abdominal exam: Present: soft. Absent: distended, tenderness Extremities exam: Present: normal inspection, normal capillary refill. Absent: pedal edema, calf tenderness Back exam: Present: normal inspection. Absent: CVA tenderness (R), CVA tenderness (L) Neurological exam: Present: alert Skin exam: Present: warm, dry, intact, normal color. Absent: rash Course Vital Signs 07/11/22 22:19 Temperature 97.3 F L Pulse Rate 72 Respiratory 16 Rate Blood Pressure 139/68 O2 Sat by Pulse 97 Oximetry Medical Decision Making - Lab Data Result diagrams: 07/11/22 23:51 07/11/22 23:51 Lab Results 07/11/22 07/11/22 07/11/22 Range/Units 22:24 23:51 23:51 WBC 4.1 (3.8-10.6) k/uL RBC 4.30 (3.80-5.40) m/uL Hgb 13.5 (11.4-16.0) gm/dL Hct 40.4 (34.0-46.0) % MCV 93.8 (80.0-100.0) fL MCH 31.4 (25.0-35.0) pg MCHC 33.4 (31.0-37.0) g/dL RDW 12.2 (11.5-15.5) % Plt Count 188 (150-450) k/uL MPV 8.4 Neutrophils % 69 % Lymphocytes % 17 % Monocytes % 10 % Eosinophils % 1 % Basophils % 1 % Neutrophils # 2.8 (1.3-7.7) k/uL Lymphocytes # 0.7 L (1.0-4.8) k/uL Monocytes # 0.4 (0-1.0) k/uL Eosinophils # 0.0 (0-0.7) k/uL Basophils # 0.0 (0-0.2) k/uL Sodium 137 (137-145) mmol/L Potassium 4.3 (3.5-5.1) mmol/L Chloride 102 (98-107) mmol/L Carbon Dioxide 28 (22-30) mmol/L Anion Gap 7 mmol/L BUN 35 H (7-17) mg/dL Creatinine 1.14 H (0.52-1.04) mg/dL Est GFR (CKD-EPI)AfAm 62 (>60 ml/min/1.73 sqM) Est GFR (CKD-EPI)NonAf 54 (>60 ml/min/1.73 sqM) Glucose 176 H (74-99) mg/dL POC Glucose (mg/dL) 167 H (70-110) mg/dL POC Glu [employer] Worker ID Leonor Amaral Calcium 9.4 (8.4-10.2) mg/dL 07/12/22 Range/Units 00:09 WBC (3.8-10.6) k/uL RBC (3.80-5.40) m/uL Hgb (11.4-16.0) gm/dL Hct (34.0-46.0) % MCV (80.0-100.0) fL MCH (25.0-35.0) pg MCHC (31.0-37.0) g/dL RDW (11.5-15.5) % Plt Count (150-450) k/uL MPV Neutrophils % % Lymphocytes % % Monocytes % % Eosinophils % % Basophils % % Neutrophils # (1.3-7.7) k/uL Lymphocytes # (1.0-4.8) k/uL Monocytes # (0-1.0) k/uL Eosinophils # (0-0.7) k/uL Basophils # (0-0.2) k/uL Sodium (137-145) mmol/L Potassium (3.5-5.1) mmol/L Chloride (98-107) mmol/L Carbon Dioxide (22-30) mmol/L Anion Gap mmol/L BUN (7-17) mg/dL Creatinine (0.52-1.04) mg/dL Est GFR (CKD-EPI)AfAm (>60 ml/min/1.73 sqM) Est GFR (CKD-EPI)NonAf (>60 ml/min/1.73 sqM) Glucose (74-99) mg/dL POC Glucose (mg/dL) 251 H (70-110) mg/dL POC Glu [employer] Worker ID Anu Amarallyn Calcium (8.4-10.2) mg/dL Disposition Clinical Impression: Hypoglycemia Disposition: HOME SELF-CARE Condition: Good Instructions (If sedation given, give patient instructions): Hypoglycemia in a Person with Diabetes (ED) Is patient prescribed a controlled substance at d/c from ED?: No Referrals: Andrea Casanova DO [Primary Care Provider] - 1-2 days
[2022-07-11 23:33] LABS: Basophils % (A) 1 %; Eosinophils % (A) 1 %; HCT 40.4 % (34.0-46.0); HGB 13.5 gm/dL (11.4-16.0); Lymphocytes # (A) 0.7 k/uL (1.0-4.8); Lymphocytes % (A) 17 %; MCH 31.4 pg (25.0-35.0); MCHC 33.4 g/dL (31.0-37.0); MCV 93.8 fL (80.0-100.0); Mean Platelet Volume 8.4; Monocytes # (A) 0.4 k/uL (0-1.0); Monocytes % (A) 10 %; Neutrophils # (A) 2.8 k/uL (1.3-7.7); Neutrophils % (A) 69 %; Platelet Count 188 k/uL (150-450); RDW 12.2 % (11.5-15.5); WBC 4.1 k/uL (3.8-10.6)
[2022-07-12] LABS: Calcium 9.4 mg/dL (8.4-10.2); Potassium 4.3 mmol/L (3.5-5.1)
[2022-07-12 00:11] LABS: Glucose,Whole Blood 251 mg/dL (70-110)
[2022-07-12 01:12] VITALS: BP 122/78; PULSE 76; RESP 18
== END 2022-07-12 01:12 | disposition home or self-care (01) ==
LOC: EC 22:18
DX: E16.2 Hypoglycemia, unspecified (principal); E11.9 Type 2 diabetes mellitus without complications; F32.A Depression, unspecified; Z91.011 Allergy to milk products; Z79.4 Long term (current) use of insulin
CPT/HCPCS: 36415; 80048; 85025; 99285

== ENCOUNTER 2023-01-27 12:53 | Inpatient (IN) | payer OTHER ==
[2023-01-27 13:09] LABS: Glucose,Whole Blood >600 mg/dL (70-110)
[2023-01-27] MEDS ORDERED: ONDANSETRON 4 MG/2 ML VIAL IVP STA (13:16)
[2023-01-27] MEDS ORDERED: SODIUM CHLORIDE 0.9% 500 ML 500 ML IV ONE ×2 (13:16→14:13)
[2023-01-27 13:36] LABS: Basophils % (A) 0 %; Eosinophils % (A) 0 %; HCT 42.7 % (34.0-46.0); HGB 13.5 gm/dL (11.4-16.0); Hypochromasia Moderate; Lymphocytes # (A) 0.4 k/uL (1.0-4.8); Lymphocytes % (A) 5 %; MCH 31.5 pg (25.0-35.0); MCHC 31.5 g/dL (31.0-37.0); Mean Platelet Volume 8.6; Monocytes # (A) 0.7 k/uL (0-1.0); Monocytes % (A) 8 %; Neutrophils # (A) 7.9 k/uL (1.3-7.7); Neutrophils % (A) 86 %; Platelet Count 260 k/uL (150-450); RBC 4.27 m/uL (3.80-5.40); RDW 12.4 % (11.5-15.5); WBC 9.1 k/uL (3.8-10.6)
--- NOTE | 2023-01-27 13:45 | XR ---
EXAMINATION TYPE: XR chest 2V DATE OF EXAM: 01/27/2023 COMPARISON: NONE TECHNIQUE: PA and lateral views submitted. HISTORY: Weakness FINDINGS: The lungs are clear and there is no pneumothorax, pleural effusion, or focal pneumonia. Heart size normal and no overt failure. Osseous structures demonstrate hypertrophic and degenerative changes of the spine. Linear change right midlung compatible scarring or atelectasis. Degenerative change of the spine. Hyp erinflation of the lungs. IMPRESSION: 1. No acute process. Correlate for COPD.
[2023-01-27 13:53] LABS: ALT 23 U/L (4-34); AST 32 U/L (14-36); African American GFR (CKD) 29 (>60 ml/min/1.73 sqM); Albumin 4.6 g/dL (3.5-5.0); Alkaline Phosphatase 79 U/L (38-126); Anion Gap 34 mmol/L; Blood Urea Nitrogen 39 mg/dL (7-17); Calcium 9.7 mg/dL (8.4-10.2); Chloride 93 mmol/L (98-107); Non-African American GFR(CKD) 25 (>60 ml/min/1.73 sqM); Sodium 133 mmol/L (137-145); Total Bilirubin 0.6 mg/dL (0.2-1.3); Total Protein 7.2 g/dL (6.3-8.2); VBG PH 7.12 (7.31-7.41)
--- NOTE | 2023-01-27 13:59 | ED ---
General Adult HPI - General Chief complaint: Recheck/Abnormal Lab/Rx Stated complaint: high b. sugar Time Seen by Provider: 01/27/23 13:00 Source: patient, RN notes reviewed Mode of arrival: wheelchair Limitations: no limitations - History of Present Illness Initial comments: 57-year-old female presents emergency department tingling of hyperglycemia. Leonardo juan states blood sugar was elevated at 300 yesterday she states it's reading high today. Patient states she did give herself 29 units of insulin this morning she states that her insulin pump onto changes site 2 days ago she states it is working properly. Patient does admit to nausea and vomiting states she has not felt well of recent she has had slight cough. Patient does have known renal disease states that she did not on dialysis but was told she is getting closer. - Related Data Home Medications Medication Instructions Recorded Confirmed Insulin Aspart (For Pump) [NovoLOG 0.01 unit SQ-PUMP CONTINUOUS 05/24/17 01/27/23 (For Pump)] Escitalopram Oxalate [Lexapro] 20 mg PO DAILY 10/27/21 01/27/23 Haloperidol Decanoate [Haldol D] 200 mg IM Q14D 10/27/21 01/27/23 Glucagon [Gvoke Pfs 1-Pack Syringe] 1 mg SQ ONCE PRN 01/27/23 01/27/23 hydrOXYzine pamoate [Vistaril] 25 mg PO QID PRN 01/27/23 01/27/23 Allergies Allergy/AdvReac Type Severity Reaction Status Date / Time Milk Containing Products AdvReac Nausea & Verified 01/27/23 14:12 [Dairy] Vomiting & Diarrhea Review of Systems ROS Statement: Those systems with pertinent positive or pertinent negative responses have been documented in the HPI. ROS Other: All systems not noted in ROS Statement are negative. Past Medical History Past Medical History: Diabetes Mellitus History of Any Multi-Drug Resistant Organisms: None Reported Past Surgical History: Hysterectomy, Orthopedic Surgery, Tonsillectomy Additional Past Surgical History / Comment(s): Right ankle repair Past Psychological History: Depression, Schizophrenia Smoking Status: Never smoker Past Alcohol Use History: None Reported Past Drug Use History: None Reported General Exam Limitations: no limitations General appearance: alert, in no apparent distress Head exam: Present: atraumatic, normocephalic, normal inspection Eye exam: Present: normal appearance, PERRL, EOMI. Absent: scleral icterus, conjunctival injection, periorbital swelling ENT exam: Present: normal exam, normal oropharynx, mucous membranes moist Neck exam: Present: normal inspection. Absent: tenderness, meningismus, lymphadenopathy Respiratory exam: Present: normal lung sounds bilaterally. Absent: respiratory distress, wheezes, rales, rhonchi, stridor Cardiovascular Exam: Present: normal rhythm, tachycardia, normal heart sounds. Absent: systolic murmur, diastolic murmur, rubs, gallop, clicks GI/Abdominal exam: Present: soft, normal bowel sounds. Absent: distended, te nderness, guarding, rebound, rigid Neurological exam: Present: alert, oriented X3 Course Vital Signs 01/27/23 01/27/23 01/27/23 12:54 15:43 17:00 Temperature 98.3 F Pulse Rate 108 H 105 H 103 H Respiratory 20 20 13 Rate Blood Pressure 96/60 116/57 122/55 O2 Sat by Pulse 98 96 97 Oximetry 01/27/23 01/27/23 18:00 19:00 Temperature Pulse Rate 105 H 99 Respiratory 16 18 Rate Blood Pressure 105/51 109/53 O2 Sat by Pulse 97 97 Oximetry EKG Findings - EKG Comments: EKG Findings:: EKG performed at 15:31 sinus tachycardia rate of 102 DE 173 QRS 90 QT/QTC 346/399 - EKG Results: EKG: interpreted by [facility] Medical Decision Making - Medical Decision Making Was pt. sent in by a medical professional or institution (, PA, ASSISTANT MANAGER BILINGUAL, urgent care, hospital, or long term...) When possible be specific @ -No Did you speak to anyone other than the patient for history (EMS, parent, family, police, friend...)? What history was obtained from this source @ -EMS provided prehospital treatment Did you review nursing and triage notes (agree or disagree)? Why? @ -I reviewed and agree with nursing and triage notes Were old charts reviewed (outside hosp., previous admission, EMS record, old EKG, old radiological studies, urgent care reports/EKG's, long term records)? Report findings @ -No old charts were reviewed Differential Diagnosis (chest pain, altered mental status, abdominal pain women, abdominal pain men, vaginal bleeding, weakness, fever, dyspnea, syncope, headache, dizziness, GI bleed, back pain, seizure, CVA, palpatations, mental health, musculoskeletal)? @ -Hypoglycemic, nausea vomiting, DKA EKG interpreted by me (3pts min.). @ -As above X-rays interpreted by me (1pt min.). @ -Chest x-ray shows no acute cardio pulmonary process CT interpreted by me (1pt min.). @ -None done U/S interpreted by me (1pt. min.). @ -None done What testing was considered but not performed or refused? (CT, X-rays, U/S, labs)? Why? @ -None What meds were considered but not given or refused? Why? @ -None Did you discuss the management of the patient with other professionals (professionals i.e. , PA, ASSISTANT MANAGER BILINGUAL, lab, RT, psych nurse, social media strategist, brim greaser operator, teacher, public affairs officer, case liner)? Give summary @ - sheet for admission secondary to DKA, requiring further IV fluids, i nsulin drip, repeat electrolytes Was smoking cessation discussed for >3mins.? @ -No Was critical care preformed (if so, how long)? @ -No Were there social determinants of health that impacted care today? How? (Homelessness, low income, unemployed, alcoholism, drug addiction, transportation, low edu. Level, literacy, decrease access to med. care, retirement, rehab)? @ -No Was there de-escalation of care discussed even if they declined (Discuss DNR or withdrawal of care, Hospice)? DNR status @ -No What co-morbidities impacted this encounter? (DM, HTN, Smoking, COPD, CAD, Cancer, CVA, ARF, Chemo, Hep., AIDS, mental health diagnosis, sleep apnea, morbid obesity)? @ -Diabetes Was patient admitted / discharged? Hospital course, mention meds given and route, prescriptions, significant lab abnormalities, going to OR and other pertinent info. @ -Admitted to stepdown patient is in DKA, VBG shows pH 7.12 bicarb less than 6, patient extremely dehydrated patient started on IV fluid bolus 1500mls given known kidney disease, insulin drip, insulin bolus patient will have repeat electrolytes Undiagnosed new problem with uncertain prognosis? @ -No Drug Therapy requiring intensive monitoring for toxicity (Heparin, Nitro, Insulin, Cardizem)? @ -Insulin Were any procedures done? @ -No Diagnosis/symptom? @ -DKA Acute, or Chronic, or Acute on Chronic? @ -Acute Uncomplicated (without systemic symptoms) or Complicated (systemic symptoms)? @ -Complicated Side effects of treatment? @ -No Exacerbation, Progression, or Severe Exacerbation? @ -No Poses a threat to life or bodily function? How? (Chest pain, [place], CO, pneumonia, PE, COPD, DKA, ARF, appy, cholecystitis, CVA, Diverticulitis, Homicidal, Suicidal, threat to staff... and all critical care pts) @ -Yes patient is in DKA with severe metabolic acidosis - Lab Data Result diagrams: 01/27/23 13:19 01/28/23 01:28 Lab Results 01/27/23 01/27/23 01/27/23 Range/Units 13:05 13:19 13:19 WBC 9.1 (3.8-10.6) k/uL RBC 4.27 (3.80-5.40) m/uL Hgb 13.5 (11.4-16.0) gm/dL Hct 42.7 (34.0-46.0) % MCV 100.0 (80.0-100.0) fL MCH 31.5 (25.0-35.0) pg MCHC 31.5 (31.0-37.0) g/dL RDW 12.4 (11.5-15.5) % Plt Count 260 (150-450) k/uL MPV 8.6 Neutrophils % 86 % Lymphocytes % 5 % Monocytes % 8 % Eosinophils % 0 % Basophils % 0 % Neutrophils # 7.9 H (1.3-7.7) k/uL Lymphocytes # 0.4 L (1.0-4.8) k/uL Monocytes # 0.7 (0-1.0) k/uL Eosinophils # 0.0 (0-0.7) k/uL Basophils # 0.0 (0-0.2) k/uL Hypochromasia Moderate VBG pH (7.31-7.41) VBG pCO2 (37-51) mmHg VBG HCO3 (24-28) mmol/L Sodium 133 L (137-145) mmol/L Potassium 6.4 H* (3.5-5.1) mmol/L Chloride 93 L (98-107) mmol/L Carbon Dioxide 6 L* (22-30) mmol/L Anion Gap 34 mmol/L BUN 39 H (7-17) mg/dL Creatinine 2.11 H (0.52-1.04) mg/dL Est GFR (CKD-EPI)AfAm 29 (>60 ml/min/1.73 sqM) Est GFR (CKD-EPI)NonAf 25 (>60 ml/min/1.73 sqM) Glucose 658 H* (74-99) mg/dL POC Glucose (mg/dL) >600 H (70-110) mg/dL POC Glu Silk Top Hat Body Maker ID AntionetteArleen Lactic Ac Sepsis Rflx Plasma Lactic Acid Louis (0.7-2.0) mmol/L Calcium 9.7 (8.4-10.2) mg/dL Magnesium 2.0 (1.6-2.3) mg/dL Total Bilirubin 0.6 (0.2-1.3) mg/dL AST 32 (14-36) U/L ALT 23 (4-34) U/L Alkaline Phosphatase 79 (38-126) U/L Total Protein 7.2 (6.3-8.2) g/dL Albumin 4.6 (3.5-5.0) g/dL Acetone, Qual Positive (Negative) 01/27/23 01/27/23 01/27/23 Range/Units 13:19 13:19 14:06 WBC (3.8-10.6) k/uL RBC (3.80-5.40) m/uL Hgb (11.4-16.0) gm/dL Hct (34.0-46.0) % MCV (80.0-100.0) fL MCH (25.0-35.0) pg MCHC (31.0-37.0) g/dL RDW (11.5-15.5) % Plt Count (150-450) k/uL MPV Neutrophils % % Lymphocytes % % Monocytes % % Eosinophils % % Basophils % % Neutrophils # (1.3-7.7) k/uL Lymphocytes # (1.0-4.8) k/uL Monocytes # (0-1.0) k/uL Eosinophils # (0-0.7) k/uL Basophils # (0-0.2) k/uL Hypochromasia VBG pH 7.12 L* (7.31-7.41) VBG pCO2 34 L (37-51) mmHg VBG HCO3 10 L (24-28) mmol/L Sodium (137-145) mmol/L Potassium (3.5-5.1) mmol/L Chloride (98-107) mmol/L Carbon Dioxide (22-30) mmol/L Anion Gap mmol/L BUN (7-17) mg/dL Creatinine (0.52-1.04) mg/dL Est GFR (CKD-EPI)AfAm (>60 ml/min/1.73 sqM) Est GFR (CKD-EPI)NonAf (>60 ml/min/1.73 sqM) Glucose (74-99) mg/dL POC Glucose (mg/dL) (70-110) mg/dL POC Glu Silk Top Hat Body Maker ID Lactic Ac Sepsis Rflx Y Plasma Lactic Acid Louis 4.5 H* (0.7-2.0) mmol/L Calcium (8.4-10.2) mg/dL Magnesium (1.6-2.3) mg/dL Total Bilirubin (0.2-1.3) mg/dL AST (14-36) U/L ALT (4-34) U/L Alkaline Phosphatase (38-126) U/L Total Protein (6.3-8.2) g/dL Albumin (3.5-5.0) g/dL Acetone, Qual (Negative) Disposition Clinical Impression: Hyperkalemia, DKA (diabetic ketoacidosis) Disposition: ADMITTED IP TO THIS [facility] Condition: Serious Time of Disposition: 14:47
[2023-01-27] MEDS ORDERED: D5-0.45% NACL WITH KCL 20MEQ/L 1,000 ML IV SCH (14:00)
[2023-01-27] MEDS ORDERED: INSULIN REGULAR BOLUS (FROM DRIP BAG) IV ONE (14:00)
[2023-01-27 14:02] LABS: Carbon Dioxide 6 mmol/L (22-30); Glucose 658 mg/dL (74-99); Potassium 6.4 mmol/L (3.5-5.1)
[2023-01-27] MEDS: INSULIN REGULAR 100 UNIT in SODIUM CHLORIDE 0.9% 100 ML IV SCH (14:46)
[2023-01-27] MEDS ORDERED: SODIUM CHLORIDE 0.9% 500 ML 500 ML IV STA (15:23)
[2023-01-27 15:39] LABS: Glucose,Whole Blood >600 mg/dL (70-110)
[2023-01-27 16:42] LABS: Glucose,Whole Blood 542 mg/dL (70-110)
[2023-01-27] MEDS ORDERED: PROCHLORPERAZINE INJ 10 MG/2 ML VIAL IVP PRN (16:51)
[2023-01-27 17:11] LABS: African American GFR (CKD) 31 (>60 ml/min/1.73 sqM); Blood Urea Nitrogen 40 mg/dL (7-17); Chloride 100 mmol/L (98-107); Non-African American GFR(CKD) 27 (>60 ml/min/1.73 sqM); Sodium 132 mmol/L (137-145)
[2023-01-27 17:18] LABS: Carbon Dioxide <5 mmol/L (22-30); Glucose 565 mg/dL (74-99); Phosphorus 6.1 mg/dL (2.5-4.5); Potassium 5.5 mmol/L (3.5-5.1)
[2023-01-27] MEDS: SODIUM CHLORIDE 0.9% 1,000 ML IV SCH (17:31)
[2023-01-27 17:35] LABS: Glucose,Whole Blood 510 mg/dL (70-110)
[2023-01-27 18:39] LABS: Glucose,Whole Blood 469 mg/dL (70-110)
[2023-01-27 19:46] LABS: Glucose,Whole Blood 376 mg/dL (70-110)
[2023-01-27] MEDS ORDERED: GLUCAGON 1 MG/ML VIAL SQ PRN (20:19)
[2023-01-27] MEDS ORDERED: PROMETHAZINE 25 MG TAB PO PRN (20:20)
--- NOTE | 2023-01-27 20:34 | P.HPIM ---
History of Present Illness This is a pleasant 57 years old female with past medical history of diabetes mellitus. She has history of depression and schizophrenia, obstructive sleep apnea Patient has been complaining from nausea, generalized weakness and dizziness so she decided to come to the hospital. On admission she was complaining of high blood sugar, yesterday it was more than 300 and the reading was high today. Patient thinks that her insulin pump was not working properly over the last 2 days with reading more than 300 and 600. Her tile decorator is Dr. parkinson. Her senior net architect Dr. Reyna and PCP Dr. Casanova. Patient stopped her insulin pump when she came to the hospital at 2 PM today She mainly complaining of from dry cough. Patient denies chest pain or dyspnea. No abdominal pain but shows some nausea vomiting. She vomited 4 times prior to coming to the hospital No diarrhea. She complains from actually from constipation No headache weakness or numbness. No dizziness currently No urinary symptoms. Patient on admission was mildly hypotensive and tachycardic which is improved with IV hydration. CBC is normal. Venous pH as low as 7.1 Glucose was elevated more than 600, anion gap is elevated at 34. Creatinine 2.1. Acute kidney injury on chronic kidney disease, unknown baseline recently liver enzymes not elevated acetone positive EKG showing sinus tachycardia at [address]-T changes Chest x-ray: No acute process. Correlate for COPD Patient was started with insulin drip protocol and admitted to select units Review of Systems Review of systems CONSTITUTIONAL: No fever, no malaise, no fatigue. HEENT: No recent visual problems or hearing problems. Denied any sore throat. CARDIOVASCULAR: No orthopnea, PND, no palpitations, no syncope. PULMONARY: No shortness of breath, no hemoptysis. GASTROINTESTINAL: No diarrhea, no nausea, no vomiting, no abdominal pain. Normoactive bowel sounds. NEUROLOGICAL: No headaches, no weakness, no numbness. HEMATOLOGICAL: Denies any bleeding or petechiae. GENITOURINARY: Denies any burning micturition, frequency, or urgency. MUSCULOSKELETAL/RHEUMATOLOGICAL: Denies any joint pain, swelling, or any muscle pain. ENDOCRINE: Denies any polyuria or polydipsia. Past Medical History Past Medical History: Diabetes Mellitus History of Any Multi-Drug Resistant Organisms: None Reported Past Surgical History: Hysterectomy, Orthopedic Surgery, Tonsillectomy Additional Past Surgical History / Comment(s): Right ankle repair Past Psychological History: Depression, Schizophrenia Smoking Status: Never smoker Past Alcohol Use History: None Reported Past Drug Use History: None Reported Medications and Allergies Home Medications Medication Instructions Recorded Confirmed Type Insulin Aspart (For Pump) [NovoLOG 0.01 unit SQ-PUMP CONTINUOUS 05/24/17 01/27/23 History (For Pump)] Escitalopram Oxalate [Lexapro] 20 mg PO DAILY 10/27/21 01/27/23 History Haloperidol Decanoate [Haldol D] 200 mg IM Q14D 10/27/21 01/27/23 History Glucagon [Gvoke Pfs 1-Pack Syringe] 1 mg SQ ONCE PRN 01/27/23 01/27/23 History hydrOXYzine pamoate [Vistaril] 25 mg PO QID PRN 01/27/23 01/27/23 History Allergies Allergy/AdvReac Type Severity Reaction Status Date / Time Milk Containing Products AdvReac Nausea & Verified 01/27/23 14:12 [Dairy] Vomiting & Diarrhea Physical Exam Vitals: Vital Signs Temp Pulse Resp BP Pulse Ox 01/27/23 17:00 103 H 13 122/55 97 01/27/23 15:43 105 H 20 116/57 96 01/27/23 12:54 98.3 F 108 H 20 96/60 98 Intake and Output 01/27/23 01/27/23 01/27/23 06:59 14:59 22:59 Other: Weight 77.564 kg -GENERAL: The patient is alert and oriented x3, not in any acute distress. Well developed, well nourished. Generally weak, dehydrated HEENT: Pupils are round and equally reacting to light. EOMI. No scleral icterus. No conjunctival pallor. Normocephalic, atraumatic. No pharyngeal erythema. No thyromegaly. CARDIOVASCULAR: S1 and S2 present. No murmurs, rubs, or gallops. PULMONARY: Chest is clear to auscultation, no wheezing . no crackles. ABDOMEN: Soft, nontender, nondistended, normoactive bowel sounds. No palpable organomegaly. MUSCULOSKELETAL: No joint swelling or deformity. EXTREMITIES: No cyanosis, clubbing, or pedal edema. NEUROLOGICAL: Gross neurological examination did not reveal any focal deficits. SKIN: No rashes. no petechiae. Results CBC & Chem 7: 01/27/23 13:19 01/27/23 16:38 Labs: Abnormal Lab Results - Last 24 Hours (Table) 01/27/23 01/27/23 01/27/23 Range/Units 13: 13: 13:19 Neutrophils # 7.9 H (1.3-7.7) k/uL Lymphocytes # 0.4 L (1.0-4.8) k/uL VBG pH (7.31-7.41) VBG pCO2 (37-51) mmHg VBG HCO3 (24-28) mmol/L Sodium 133 L (137-145) mmol/L Potassium 6.4 H* (3.5-5.1) mmol/L Chloride 93 L (98-107) mmol/L Carbon Dioxide 6 L* (22-30) mmol/L BUN 39 H (7-17) mg/dL Creatinine 2.11 H (0.52-1.04) mg/dL Glucose 658 H* (74-99) mg/dL POC Glucose (mg/dL) >600 H (70-110) mg/dL Plasma Lactic Acid Louis (0.7-2.0) mmol/L Phosphorus (2.5-4.5) mg/dL 01/27/23 01/27/23 01/27/23 Range/Units 13: 13:19 15:37 Neutrophils # (1.3-7.7) k/uL Lymphocytes # (1.0-4.8) k/uL VBG pH 7.12 L* (7.31-7.41) VBG pCO2 34 L (37-51) mmHg VBG HCO3 10 L (24-28) mmol/L Sodium (137-145) mmol/L Potassium (3.5-5.1) mmol/L Chloride (98-107) mmol/L Carbon Dioxide (22-30) mmol/L BUN (7-17) mg/dL Creatinine (0.52-1.04) mg/dL Glucose (74-99) mg/dL POC Glucose (mg/dL) >600 H (70-110) mg/dL Plasma Lactic Acid Louis 4.5 H* (0.7-2.0) mmol/L Phosphorus (2.5-4.5) mg/dL 01/27/23 01/27/23 01/27/23 Range/Units 16:38 16:38 16:40 Neutrophils # (1.3-7.7) k/uL Lymphocytes # (1.0-4.8) k/uL VBG pH (7.31-7.41) VBG pCO2 (37-51) mmHg VBG HCO3 (24-28) mmol/L Sodium 132 L (137-145) mmol/L Potassium 5.5 H (3.5-5.1) mmol/L Chloride (98-107) mmol/L Carbon Dioxide <5 L* (22-30) mmol/L BUN 40 H (7-17) mg/dL Creatinine 2.00 H (0.52-1.04) mg/dL Glucose 565 H* (74-99) mg/dL POC Glucose (mg/dL) 542 H (70-110) mg/dL Plasma Lactic Acid Louis 2.8 H* (0.7-2.0) mmol/L Phosphorus 6.1 H (2.5-4.5) mg/dL 01/27/23 Range/Units 17:34 Neutrophils # (1.3-7.7) k/uL Lymphocytes # (1.0-4.8) k/uL VBG pH (7.31-7.41) VBG pCO2 (37-51) mmHg VBG HCO3 (24-28) mmol/L Sodium (137-145) mmol/L Potassium (3.5-5.1) mmol/L Chloride (98-107) mmol/L Carbon Dioxide (22-30) mmol/L BUN (7-17) mg/dL Creatinine (0.52-1.04) mg/dL Glucose (74-99) mg/dL POC Glucose (mg/dL) 510 H (70-110) mg/dL Plasma Lactic Acid Louis (0.7-2.0) mmol/L Phosphorus (2.5-4.5) mg/dL Assessment and Plan Assessment: Diabetic ketoacidosis Diabetes mellitus with hyperglycemia Acute metabolic acidosis Acute kidney injury versus progressive chronic kidney disease History of depression and schizophrenia, not an active issue History of obstructive sleep apnea Plan: Continue with insulin drip per protocol Aggressive hydration Hold insulin pump (already discontinued by patient) Labs and medication were reviewed.. Continue same treatment. Continue with symptomatic treatment. Resume home medication. Monitor labs and vitals. DVT and GI prophylaxis. Further recommendations as per clinical course of the patient DVT prophylaxis: Subcutaneous heparin GI Prophylaxis: Pepcid PT/OT: Pending Prognosis is guarded
[2023-01-27] MEDS ORDERED: FAMOTIDINE 20 MG/2 ML VIAL IV SCH (21:00)
[2023-01-27 21:01] LABS: Glucose,Whole Blood 372 mg/dL (70-110)
[2023-01-27 21:21] LABS: Phosphorus 3.7 mg/dL (2.5-4.5)
[2023-01-27 22:01] LABS: Glucose,Whole Blood 365 mg/dL (70-110)
[2023-01-27 23:08] LABS: Glucose,Whole Blood 298 mg/dL (70-110)
[2023-01-27] MEDS: HEPARIN SODIUM,PORCINE/PF 5,000 UNIT/0.5 ML SYRINGE SQ SCH (23:21)
[2023-01-27] MEDS: D5-0.45% NACL WITH KCL 20MEQ/L 1,000 ML IV SCH (23:37)
[2023-01-28 00:09] LABS: Glucose,Whole Blood 258 mg/dL (70-110)
[2023-01-28 00:42] LABS: Appearance,Urine Clear (Clear); Bilirubin,Urine Negative (Negative); Blood,Urine Negative (Negative); Color,Urine Light Yellow; Glucose,Urine (UA) 3+ (Negative); Leukocyte Esterase,Urine Negative (Negative); Nitrite,Urine Negative (Negative); PH, Urine 5.5 (5.0-8.0); Protein,Urine Negative (Negative); Specific Gravity,Urine 1.009 (1.001-1.035); Urobilinogen,Urine <2.0 mg/dL (<2.0)
[2023-01-28 00:51] LABS: Ketones,Urine 2+ (Negative)
[2023-01-28 01:07] LABS: Glucose,Whole Blood 235 mg/dL (70-110)
[2023-01-28 02:11] LABS: Glucose,Whole Blood 204 mg/dL (70-110)
[2023-01-28 02:28] LABS: Calcium 8.9 mg/dL (8.4-10.2); Potassium 4.6 mmol/L (3.5-5.1)
[2023-01-28 03:12] LABS: Glucose,Whole Blood 129 mg/dL (70-110)
[2023-01-28] MEDS: INSULIN REGULAR 100 UNIT in SODIUM CHLORIDE 0.9% 100 ML IV SCH ×2 (03:13→16:58)
[2023-01-28 04:07] LABS: Glucose,Whole Blood 115 mg/dL (70-110)
[2023-01-28 05:10] LABS: Glucose,Whole Blood 85 mg/dL (70-110)
[2023-01-28] MEDS: SODIUM CHLORIDE 0.9% 1,000 ML IV SCH ×3 (05:35→15:30)
[2023-01-28 05:44] LABS: Glucose,Whole Blood 71 mg/dL (70-110)
[2023-01-28 05:56] LABS: Glucose,Whole Blood 72 mg/dL (70-110)
[2023-01-28 06:19] LABS: Glucose,Whole Blood 87 mg/dL (70-110)
[2023-01-28 06:53] LABS: Glucose,Whole Blood 196 mg/dL (70-110)
[2023-01-28 07:50] LABS: Calcium 8.2 mg/dL (8.4-10.2)
[2023-01-28 08:02] LABS: Potassium 5.3 mmol/L (3.5-5.1)
[2023-01-28 08:03] LABS: Glucose,Whole Blood 140 mg/dL (70-110)
[2023-01-28] MEDS: HEPARIN SODIUM,PORCINE/PF 5,000 UNIT/0.5 ML SYRINGE SQ SCH ×2 (08:43→20:11)
[2023-01-28] MEDS: ESCITALOPRAM 20 MG TAB PO SCH (08:43)
[2023-01-28] MEDS: D5-0.45% NACL WITH KCL 20MEQ/L 1,000 ML IV SCH ×3 (08:43→18:20)
[2023-01-28 09:03] LABS: Glucose,Whole Blood 161 mg/dL (70-110)
[2023-01-28 10:13] LABS: Glucose,Whole Blood 137 mg/dL (70-110)
[2023-01-28 11:01] LABS: Glucose,Whole Blood 161 mg/dL (70-110)
[2023-01-28 11:22] VITALS: BMI 28.4
[2023-01-28 12:00] LABS: Glucose,Whole Blood 209 mg/dL (70-110)
[2023-01-28 12:26] LABS: Potassium 4.5 mmol/L (3.5-5.1)
[2023-01-28] MEDS ORDERED: BENZOCAINE/MENTHOL LOZENG 1 EACH LOZENGE MUCOUS MEM PRN (12:51)
[2023-01-28 13:04] LABS: Glucose,Whole Blood 298 mg/dL (70-110)
[2023-01-28 14:04] LABS: Glucose,Whole Blood 273 mg/dL (70-110)
[2023-01-28 15:00] LABS: Glucose,Whole Blood 240 mg/dL (70-110)
[2023-01-28 16:01] LABS: Glucose,Whole Blood 213 mg/dL (70-110)
[2023-01-28 17:01] LABS: Glucose,Whole Blood 175 mg/dL (70-110)
[2023-01-28 17:37] LABS: Phosphorus 1.6 mg/dL (2.5-4.5); Potassium 4.5 mmol/L (3.5-5.1)
[2023-01-28 18:01] LABS: Glucose,Whole Blood 152 mg/dL (70-110)
[2023-01-28 19:09] LABS: Glucose,Whole Blood 115 mg/dL (70-110)
--- NOTE | 2023-01-28 19:41 | P.PN ---
Progress Note - Text Progress Note Date: 01/28/23 This is a pleasant 57 years old female with past medical history of diabetes mellitus. She has history of depression and schizophrenia, obstructive sleep apnea Patient has been complaining from nausea, generalized weakness and dizziness so she decided to come to the hospital. On admission she was complaining of high blood sugar, yesterday it was more than 300 and the reading was high today. Patient thinks that her insulin pump was not working properly over the last 2 days with reading more than 300 and 600. Her lump roller is Dr. parkinson. Her folder stitcher operator Dr. Reyna and PCP Dr. Casanova. Patient stopped her insulin pump when she came to the hospital at 2 PM today She mainly complaining of from dry cough. Patient denies chest pain or dyspnea. No abdominal pain but shows some nausea vomiting. She vomited 4 times prior to coming to the hospital No diarrhea. She complains from actually from constipation No headache weakness or numbness. No dizziness currently No urinary symptoms. Patient on admission was mildly hypotensive and tachycardic which is improved with IV hydration. CBC is normal. Venous pH as low as 7.1 Glucose was elevated more than 600, anion gap is elevated at 34. Creatinine 2.1. Acute kidney injury on chronic kidney disease, unknown baseline recently liver enzymes not elevated acetone positive EKG showing sinus tachycardia at [address]-T changes Chest x-ray: No acute process. Correlate for COPD Patient was started with insulin drip protocol and admitted to select units January 28: I resumed care of the patient today from [facility] hospitalists. Patient laying in bed. Tired. Doesn't want to eat. No nausea vomiting. On in sulin drip. Put on full liquids. Patient follows with Dr. macario for his insulin pump. Active Medications Benzocaine/Menthol (Benzocaine/Menthol Lozeng 1 Each Lozenge) 1 each MUCOUS MEM Q4HR PRN PRN Reason: Cough Last Admin: 01/28/23 13:07 Dose: 1 each Escitalopram Oxalate (Escitalopram 20 Mg Tab) 20 mg PO DAILY DARIAN Last Admin: 01/28/23 08:43 Dose: 20 mg Famotidine (Famotidine 20 Mg Tab) 20 mg PO Q24H DARIAN Glucagon (Glucagon 1 Mg/Ml Vial) 1 mg SQ ONCE PRN PRN Reason: Severe hypoglycemia Haloperidol Decanoate (Haloperidol Decanoate 100 Mg/Ml 1 Ml Vial) 200 mg IM Q14D [facility] Heparin Sodium (Porcine) (Heparin Sodium,Porcine/Pf 5,000 Unit/0.5 Ml Syringe) 5,000 unit SQ Q12HR [facility] Last Admin: 01/28/23 08:43 Dose: 5,000 unit Insulin Human Regular 100 unit (/ Sodium Chloride) 101 mls @ 7.834 mls/hr IV .[id number] [facility]; Protocol Last Titration: 01/28/23 19:19 Dose: 0.02 units/kg/hr, 1.19 mls/hr Potassium Chloride/Dextrose/Sod Cl (D5%-1/2ns-Kcl 20 Meq/L Iv Solution) 1,000 mls @ 150 mls/hr IV .[id number] [facility] Last Admin: 01/28/23 18:20 Dose: Not Given Promethazine HCl (Promethazine 25 Mg Tab) 12.5 mg PO Q6HR PRN PRN Reason: Nausea And Vomiting Past Medical History Past Medical History: Diabetes Mellitus History of Any Multi-Drug Resistant Organisms: None Reported Past Surgical History: Hysterectomy, Orthopedic Surgery, Tonsillectomy Additional Past Surgical History / Comment(s): Right ankle repair Past Psychological History: Depression, Schizophrenia Smoking Status: Never smoker Past Alcohol Use History: None Reported Past Drug Use History: None Reported Medications and Allergies Home Medications Medication Instructions Recorded Confirmed Type Insulin Aspart (For Pump) [NovoLOG 0.01 unit SQ-PUMP CONTINUOUS 05/24/17 01/27/23 History (For Pump)] Escitalopram Oxalate [Lexapro] 20 mg PO DAILY 10/27/21 01/27/23 History Haloperidol Decanoate [Haldol D] 200 mg IM Q14D 10/27/21 01/27/23 History Glucagon [Gvoke Pfs 1-Pack Syringe] 1 mg SQ ONCE PRN 01/27/23 01/27/23 History hydrOXYzine pamoate [Vistaril] 25 mg PO QID PRN 01/27/23 01/27/23 History Allergies Allergy/AdvReac Type Severity Reaction Status Date / Time Milk Containing Products AdvReac Nausea & Verified 01/27/23 14:12 [Dairy] Vomiting & Diarrhea On examination: VITAL SIGNS: [98.4, 95, 16, 98/62, 97% room air] GENERAL APPEARANCE: Laying in bed, tired HEENT: Normal external appearance of nose and ear. Oral cavity normal EYES: Pupils equal. Conjunctiva normal. NECK: JVD not raised. Mass not palpable. RESPIRATORY: Respiratory effort normal. Lungs clear to auscultation. CARDIOVASCULAR: First and second sounds normal. No edema. ABDOMEN: Soft. Liver and spleen not palpable. No tenderness. No mass palpable. PSYCHIATRY: Alert and oriented x3. Mood and affect normal. Results January 28: Potassium 4.5 BUN 32 creatinine 1.35 CBC & Chem 7: 01/27/23 13:19 01/27/23 16:38 Labs: Abnormal Lab Results - Last 24 Hours (Table) 01/27/23 01/27/23 01/27/23 Range/Units 13: 13: 13:19 Neutrophils # 7.9 H (1.3-7.7) k/uL Lymphocytes # 0.4 L (1.0-4.8) k/uL VBG pH (7.31-7.41) VBG pCO2 (37-51) mmHg VBG HCO3 (24-28) mmol/L Sodium 133 L (137-145) mmol/L Potassium 6.4 H* (3.5-5.1) mmol/L Chloride 93 L (98-107) mmol/L Carbon Dioxide 6 L* (22-30) mmol/L BUN 39 H (7-17) mg/dL Creatinine 2.11 H (0.52-1.04) mg/dL Glucose 658 H* (74-99) mg/dL POC Glucose (mg/dL) >600 H (70-110) mg/dL Plasma Lactic Acid Louis (0.7-2.0) mmol/L Phosphorus (2.5-4.5) mg/dL 01/27/23 01/27/23 01/27/23 Range/Units 13: 13:19 15:37 Neutrophils # (1.3-7.7) k/uL Lymphocytes # (1.0-4.8) k/uL VBG pH 7.12 L* (7.31-7.41) VBG pCO2 34 L (37-51) mmHg VBG HCO3 10 L (24-28) mmol/L Sodium (137-145) mmol/L Potassium (3.5-5.1) mmol/L Chloride (98-107) mmol/L Carbon Dioxide (22-30) mmol/L BUN (7-17) mg/dL Creatinine (0.52-1.04) mg/dL Glucose (74-99) mg/dL POC Glucose (mg/dL) >600 H (70-110) mg/dL Plasma Lactic Acid Louis 4.5 H* (0.7-2.0) mmol/L Phosphorus (2.5-4.5) mg/dL 01/27/23 01/27/23 01/27/23 Range/Units 16:38 16:38 16:40 Neutrophils # (1.3-7.7) k/uL Lymphocytes # (1.0-4.8) k/uL VBG pH (7.31-7.41) VBG pCO2 (37-51) mmHg VBG HCO3 (24-28) mmol/L Sodium 132 L (137-145) mmol/L Potassium 5.5 H (3.5-5.1) mmol/L Chloride (98-107) mmol/L Carbon Dioxide <5 L* (22-30) mmol/L BUN 40 H (7-17) mg/dL Creatinine 2.00 H (0.52-1.04) mg/dL Glucose 565 H* (74-99) mg/dL POC Glucose (mg/dL) 542 H (70-110) mg/dL Plasma Lactic Acid Louis 2.8 H* (0.7-2.0) mmol/L Phosphorus 6.1 H (2.5-4.5) mg/dL 01/27/23 Range/Units 17:34 Neutrophils # (1.3-7.7) k/uL Lymphocytes # (1.0-4.8) k/uL VBG pH (7.31-7.41) VBG pCO2 (37-51) mmHg VBG HCO3 (24-28) mmol/L Sodium (137-145) mmol/L Potassium (3.5-5.1) mmol/L Chloride (98-107) mmol/L Carbon Dioxide (22-30) mmol/L BUN (7-17) mg/dL Creatinine (0.52-1.04) mg/dL Glucose (74-99) mg/dL POC Glucose (mg/dL) 510 H (70-110) mg/dL Plasma Lactic Acid Louis (0.7-2.0) mmol/L Phosphorus (2.5-4.5) mg/dL Assessment and plan: -Diabetic ketoacidosis, anion gap is reduced. Patient not really hungry. We'll start patient on full liquids. -Acute kidney injury possibly ATN from underlying DKA. Some improvement Continue IV fluids -depression and schizophrenia, On Haldol every 14 days On Lexapro -obstructive sleep apnea Encourage patient to take oral intake. Start full liquids. Advance diet as tolerate. Other medications to continue. Up in chair as tolerated.
[2023-01-28 20:05] LABS: Glucose,Whole Blood 115 mg/dL (70-110)
[2023-01-28] MEDS: DOXYCYCLINE 50 MG CAP PO SCH (20:11)
[2023-01-28] MEDS ORDERED: FAMOTIDINE 20 MG TAB PO SCH (21:00)
[2023-01-28 21:10] LABS: Glucose,Whole Blood 128 mg/dL (70-110)
[2023-01-28 21:59] LABS: Glucose,Whole Blood 134 mg/dL (70-110)
[2023-01-28 22:14] LABS: Phosphorus 2.1 mg/dL (2.5-4.5); Potassium 4.4 mmol/L (3.5-5.1)
[2023-01-28 23:03] LABS: Glucose,Whole Blood 139 mg/dL (70-110)
[2023-01-28 23:57] LABS: Glucose,Whole Blood 193 mg/dL (70-110)
[2023-01-29 01:06] LABS: Glucose,Whole Blood 241 mg/dL (70-110)
[2023-01-29 01:56] LABS: Phosphorus 2.3 mg/dL (2.5-4.5); Potassium 4.9 mmol/L (3.5-5.1)
[2023-01-29 01:58] LABS: Glucose,Whole Blood 252 mg/dL (70-110)
[2023-01-29 03:03] LABS: Glucose,Whole Blood 250 mg/dL (70-110)
[2023-01-29 03:35] VITALS: RESP 16
[2023-01-29 04:09] LABS: Glucose,Whole Blood 209 mg/dL (70-110)
[2023-01-29 04:55] LABS: Glucose,Whole Blood 265 mg/dL (70-110)
[2023-01-29] MEDS: INSULIN REGULAR 100 UNIT in SODIUM CHLORIDE 0.9% 100 ML IV SCH (05:32)
[2023-01-29] MEDS: D5-0.45% NACL WITH KCL 20MEQ/L 1,000 ML IV SCH (05:32)
[2023-01-29 05:57] LABS: Glucose,Whole Blood 220 mg/dL (70-110)
[2023-01-29 06:53] LABS: Glucose,Whole Blood 189 mg/dL (70-110)
[2023-01-29 08:01] LABS: Glucose,Whole Blood 139 mg/dL (70-110)
[2023-01-29 09:11] LABS: Glucose,Whole Blood 149 mg/dL (70-110)
[2023-01-29] MEDS: DOXYCYCLINE 50 MG CAP PO SCH (09:17)
[2023-01-29] MEDS: HEPARIN SODIUM,PORCINE/PF 5,000 UNIT/0.5 ML SYRINGE SQ SCH (09:17)
[2023-01-29] MEDS: ESCITALOPRAM 20 MG TAB PO SCH (09:17)
[2023-01-29 09:31] LABS: Basophils % (A) 0 %; Eosinophils % (A) 0 %; HCT 35.3 % (34.0-46.0); HGB 11.8 gm/dL (11.4-16.0); Lymphocytes # (A) 0.8 k/uL (1.0-4.8); Lymphocytes % (A) 12 %; MCH 31.1 pg (25.0-35.0); MCHC 33.4 g/dL (31.0-37.0); Mean Platelet Volume 8.2; Monocytes # (A) 0.6 k/uL (0-1.0); Monocytes % (A) 8 %; Neutrophils # (A) 5.4 k/uL (1.3-7.7); Neutrophils % (A) 75 %; Platelet Count 242 k/uL (150-450); RDW 12.7 % (11.5-15.5); WBC 7.1 k/uL (3.8-10.6)
[2023-01-29 09:38] LABS: Phosphorus 2.1 mg/dL (2.5-4.5); Potassium 4.6 mmol/L (3.5-5.1)
[2023-01-29 09:41] LABS: MCV 92.9 fL (80.0-100.0)
[2023-01-29] MEDS ORDERED: INSULIN PUMP BASAL RATES 1 EACH MISC MISCELLANE PRN (10:02)
[2023-01-29] MEDS ORDERED: INSPUCOR MISCELLANE PRN (10:02)
[2023-01-29] MEDS ORDERED: INSULIN ASPART (NovoLOG) 100 UNIT/ML VIAL SQ PRN (10:02)
[2023-01-29 10:03] LABS: Glucose,Whole Blood 150 mg/dL (70-110)
[2023-01-29 11:52] LABS: Glucose,Whole Blood 203 mg/dL (70-110)
[2023-01-29] MEDS ORDERED: INSULIN PUMP MEAL BOLUS 1 UNIT MISC MISCELLANE SCH (12:30)
[2023-01-29 12:36] VITALS: BP 119/73; PULSE 86; TEMP 98
--- NOTE | 2023-01-29 16:09 | P.DS ---
Providers Date of admission: 01/27/23 14:26 Expected date of discharge: 01/29/23 Attending physician: Nelson Escalante Primary care physician: Andrea Lind[facility]roberts [facility] Course: This is a pleasant 57 years old female with past medical history of diabetes mellitus. She has history of depression and schizophrenia, obstructive sleep apnea Patient has been complaining from nausea, generalized weakness and dizziness so she decided to come to the hospital. On admission she was complaining of high blood sugar, yesterday it was more than 300 and the reading was high today. Patient thinks that her insulin pump was not working properly over the last 2 days with reading more than 300 and 600. Her informatics pharmacist is Dr. parkinson. Her windows systems administrator Dr. Reyna and PCP Dr. Casanova. Patient stopped her insulin pump when she came to the hospital at 2 PM today She mainly complaining of from dry cough. Patient denies chest pain or dyspnea. No abdominal pain but shows some nausea vomiting. She vomited 4 times prior to coming to the hospital No diarrhea. She complains from actually from constipation No headache weakness or numbness. No dizziness currently No urinary symptoms. Patient on admission was mildly hypotensive and tachycardic which is improved with IV hydration. CBC is normal. Venous pH as low as 7.1 Glucose was elevated more than 600, anion gap is elevated at 34. Creatinine 2.1. Acute kidney injury on chronic kidney disease, unknown baseline recently liver enzymes not elevated acetone positive EKG showing sinus tachycardia at [address]-T changes Chest x-ray: No acute process. Correlate for COPD Patient was started with insulin drip protocol and admitted to select units January 28: I resumed care of the patient today from [facility] hospitalists. Patient laying in bed. Tired. Doesn't want to eat. No nausea vomiting. On insulin drip. Put on full liquids. Patient follows with Dr. macario for his insulin pump. January 29: Patient is put back on insulin pump today. Doing well. Patient does chronically wears sunglasses because of some photophobia. Lives with her mother. Keen to go home. Doing well. Does not like hospital food. He'll follow-up with informatics pharmacist and PCP. Patient also follows with windows systems administrator Dr. Reyna Discussion and discharge planning more than 35 minutes Past Medical History Past Medical History: Diabetes Mellitus History of Any Multi-Drug Resistant Organisms: None Reported Past Surgical History: Hysterectomy, Orthopedic Surgery, Tonsillectomy Additional Past Surgical History / Comment(s): Right ankle repair Past Psychological History: Depression, Schizophrenia Smoking Status: Never smoker Past Alcohol Use History: None Reported Past Drug Use History: None Reported Medications and Allergies Home Medications Medication Instructions Recorded Confirmed Type Insulin Aspart (For Pump) [NovoLOG 0.01 unit SQ-PUMP CONTINUOUS 05/24/17 01/27/23 History (For Pump)] Escitalopram Oxalate [Lexapro] 20 mg PO DAILY 10/27/21 01/27/23 History Haloperidol Decanoate [Haldol D] 200 mg IM Q14D 10/27/21 01/27/23 History Glucagon [Gvoke Pfs 1-Pack Syringe] 1 mg SQ ONCE PRN 01/27/23 01/27/23 History hydrOXYzine pamoate [Vistaril] 25 mg PO QID PRN 01/27/23 01/27/23 History Allergies Allergy/AdvReac Type Severity Reaction Status Date / Time Milk Containing Products AdvReac Nausea & Verified 01/27/23 14:12 [Dairy] Vomiting & Diarrhea On examination: VITAL SIGNS: [98, 86, 16, 119/73, 90% room air GENERAL APPEARANCE: Laying in bed, comfortable HEENT: Normal external appearance of nose and ear. Oral cavity normal EYES: Pupils equal. Conjunctiva normal. NECK: JVD not raised. Mass not palpable. RESPIRATORY: Respiratory effort normal. Lungs clear to auscultation. CARDIOVASCULAR: First and second sounds normal. No edema. ABDOMEN: Soft. Liver and spleen not palpable. No tenderness. No mass palpable. PSYCHIATRY: Alert and oriented x3. Mood and affect normal. Results January 29: White count 7.1 hemoglobin 11.8 potassium 4.6 BUN 20 creatinine 1.2 January 28: Potassium 4.5 BUN 32 creatinine 1.35 CBC & Chem 7: 01/27/23 13:19 01/27/23 16:38 Labs: Abnormal Lab Results - Last 24 Hours (Table) 01/27/23 01/27/23 01/27/23 Range/Units 13:05 13:19 13:19 Neutrophils # 7.9 H (1.3-7.7) k/uL Lymphocytes # 0.4 L (1.0-4.8) k/uL VBG pH (7.31-7.41) VBG pCO2 (37-51) mmHg VBG HCO3 (24-28) mmol/L Sodium 133 L (137-145) mmol/L Potassium 6.4 H* (3.5-5.1) mmol/L Chloride 93 L (98-107) mmol/L Carbon Dioxide 6 L* (22-30) mmol/L BUN 39 H (7-17) mg/dL Creatinine 2.11 H (0.52-1.04) mg/dL Glucose 658 H* (74-99) mg/dL POC Glucose (mg/dL) >600 H (70-110) mg/dL Plasma Lactic Acid Louis (0.7-2.0) mmol/L Phosphorus (2.5-4.5) mg/dL 01/27/23 01/27/23 01/27/23 Range/Units 13:19 13:19 15:37 Neutrophils # (1.3-7.7) k/uL Lymphocytes # (1.0-4.8) k/uL VBG pH 7.12 L* (7.31-7.41) VBG pCO2 34 L (37-51) mmHg VBG HCO3 10 L (24-28) mmol/L Sodium (137-145) mmol/L Potassium (3.5-5.1) mmol/L Chloride (98-107) mmol/L Carbon Dioxide (22-30) mmol/L BUN (7-17) mg/dL Creatinine (0.52-1.04) mg/dL Glucose (74-99) mg/dL POC Glucose (mg/dL) >600 H (70-110) mg/dL Plasma Lactic Acid Louis 4.5 H* (0.7-2.0) mmol/L Phosphorus (2.5-4.5) mg/dL 01/27/23 01/27/23 01/27/23 Range/Units 16:38 16:38 16:40 Neutrophils # (1.3-7.7) k/uL Lymphocytes # (1.0-4.8) k/uL VBG pH (7.31-7.41) VBG pCO2 (37-51) mmHg VBG HCO3 (24-28) mmol/L Sodium 132 L (137-145) mmol/L Potassium 5.5 H (3.5-5.1) mmol/L Chloride (98-107) mmol/L Carbon Dioxide <5 L* (22-30) mmol/L BUN 40 H (7-17) mg/dL Creatinine 2.00 H (0.52-1.04) mg/dL Glucose 565 H* (74-99) mg/dL POC Glucose (mg/dL) 542 H (70-110) mg/dL Plasma Lactic Acid Louis 2.8 H* (0.7-2.0) mmol/L Phosphorus 6.1 H (2.5-4.5) mg/dL 01/27/23 Range/Units 17:34 Neutrophils # (1.3-7.7) k/uL Lymphocytes # (1.0-4.8) k/uL VBG pH (7.31-7.41) VBG pCO2 (37-51) mmHg VBG HCO3 (24-28) mmol/L Sodium (137-145) mmol/L Potassium (3.5-5.1) mmol/L Chloride (98-107) mmol/L Carbon Dioxide (22-30) mmol/L BUN (7-17) mg/dL Creatinine (0.52-1.04) mg/dL Glucose (74-99) mg/dL POC Glucose (mg/dL) 510 H (70-110) mg/dL Plasma Lactic Acid Louis (0.7-2.0) mmol/L Phosphorus (2.5-4.5) mg/dL Assessment and plan: -Diabetic ketoacidosis, anion gap is reduced.: Improved Tolerating diet. Back on insulin pump -Acute kidney injury possibly ATN from underlying DKA. Some improvement Continue IV fluids -Suspect underlying chronic kidney disease stage III from diabetic nephropathy Patient to follow-up with Dr. Reyna -depression and schizophrenia, On Haldol every 14 days On Lexapro -obstructive sleep apnea Disposition: Home Plan - Discharge Summary New Discharge Prescriptions: New Doxycycline [Vibramycin] 50 mg PO BID #6 cap Continue Insulin Aspart (For Pump) [NovoLOG (For Pump)] 0.01 unit SQ-PUMP CONTINUOUS Haloperidol Decanoate [Haldol D] 200 mg IM Q14D hydrOXYzine pamoate [Vistaril] 25 mg PO QID PRN PRN Reason: Anxiety Glucagon [Gvoke Pfs 1-Pack Syringe] 1 mg SQ ONCE PRN PRN Reason: Severe hypoglycemia Escitalopram Oxalate [Lexapro] 20 mg PO DAILY Discharge Medication List Insulin Aspart (For Pump) [NovoLOG (For Pump)] 0.01 unit SQ-PUMP CONTINUOUS 05/24/17 [History] Escitalopram Oxalate [Lexapro] 20 mg PO DAILY 10/27/21 [History] Haloperidol Decanoate [Haldol D] 200 mg IM Q14D 10/27/21 [History] Glucagon [Gvoke Pfs 1-Pack Syringe] 1 mg SQ ONCE PRN 01/27/23 [History] hydrOXYzine pamoate [Vistaril] 25 mg PO QID PRN 01/27/23 [History] Doxycycline [Vibramycin] 50 mg PO BID #6 cap 01/29/23 [Rx] Follow up Appointment(s)/Referral(s): Azalia Reyna MD [STAFF PHYSICIAN] - 02/16/23 2:40 pm Andrea Casanova DO [Primary Care Provider] - 1-2 days (on waitlist office will call you.) Patient Instructions/Handouts: Diabetic Ketoacidosis (DC) Discharge Disposition: HOME WITH HOME HEALTH SERVICES
[2023-02-09] MEDS ORDERED: HALOPERIDOL DECANOATE 100 MG/ML 1 ML VIAL IM SCH (09:00)
== END 2023-01-29 13:43 | disposition home health service (06) | DRG 420 ==
LOC: EC 12:53 → 3SCARD 14:26
PROVIDERS: ADMIT Hospitalist; ATTEND Hospitalist
DX: E11.10 Type 2 diabetes mellitus with ketoacidosis without coma (principal); E11.22 Type 2 diabetes mellitus with diabetic chronic kidney disease; N17.0 Acute kidney failure with tubular necrosis; Z20.822 Contact with and (suspected) exposure to COVID-19; E11.649 Type 2 diabetes mellitus with hypoglycemia without coma; N18.30 Chronic kidney disease, stage 3 unspecified; I12.9 Hypertensive chronic kidney disease with stage 1 through stage 4 chronic kidney disease, or unspecified chronic kidney disease; F32.A Depression, unspecified; G47.33 Obstructive sleep apnea (adult) (pediatric); F20.9 Schizophrenia, unspecified; E87.5 Hyperkalemia; E86.0 Dehydration; K59.00 Constipation, unspecified; R00.0 Tachycardia, unspecified; I95.9 Hypotension, unspecified; Y74.2 Prosthetic and other implants, materials and accessory general hospital and personal-use devices associated with adverse incidents; Z79.4 Long term (current) use of insulin; Z79.899 Other long term (current) drug therapy; Z90.710 Acquired absence of both cervix and uterus; Z96.41 Presence of insulin pump (external) (internal); Z91.011 Allergy to milk products
CPT/HCPCS: 36415; 71046; 80048; 80051; 80053; 81003; 82009; 82565; 82803; 82947; 83605; 83735; 84100; 84520; 85025; 87636; 93005; 96361; 96374; 96375; 99285

== ENCOUNTER 2023-03-07 20:03 | Observation (INO) | payer OTHER ==
[2023-03-07 20:15] LABS: Glucose,Whole Blood 113 mg/dL (70-110)
[2023-03-07 20:58] LABS: Basophils % (A) 1 %; Eosinophils # (A) 0.1 k/uL (0-0.7); Eosinophils % (A) 2 %; HGB 12.5 gm/dL (11.4-16.0); Lymphocytes # (A) 0.9 k/uL (1.0-4.8); Lymphocytes % (A) 33 %; MCH 30.8 pg (25.0-35.0); MCHC 31.9 g/dL (31.0-37.0); MCV 96.7 fL (80.0-100.0); Mean Platelet Volume 8.2; Monocytes # (A) 0.4 k/uL (0-1.0); Monocytes % (A) 12 %; Neutrophils # (A) 1.4 k/uL (1.3-7.7); Neutrophils % (A) 48 %; Platelet Count 160 k/uL (150-450); RBC 4.04 m/uL (3.80-5.40); RDW 13.6 % (11.5-15.5); WBC 2.9 k/uL (3.8-10.6)
--- NOTE | 2023-03-07 21:01 | XR ---
EXAMINATION TYPE: XR chest 2V DATE OF EXAM: 03/07/2023 8:57 PM COMPARISON: Chest x-ray 01/27/2023 TECHNIQUE: XR chest 2V . CLINICAL INDICATION:Female, 57 years old with history of altered mental status; FINDINGS: Lungs/Pleura: There is no evidence of pleural effusion, focal consolidation, or pneumothorax. Pulmonary vascularity: Unremarkable. Heart/mediastinum: Cardiomediastinal silhouette is unremarkable. Musculoskeletal: Multiple level degenerative disc disease changes seen throughout the spine. IMPRESSION: No acute cardiopulmonary disease/process.
--- NOTE | 2023-03-07 21:06 | CT ---
EXAMINATION TYPE: CT brain wo con CT DLP: 1173.4 mGycm, Automated exposure control for dose reduction was used. DATE OF EXAM: 03/07/2023 8:58 PM COMPARISON: None. CLINICAL INDICATION:Female, 57 years old with history of Altered mental status, AMS TECHNIQUE: Brain: Axial CT images of the brain were obtained with coronal and sagittal reformats created and rev iewed. Contrast used: None. Oral contrast used: None. FINDINGS: Brain: Extra-axial spaces: No abnormal extra-axial fluid collections. Ventricular system: Within normal limits Cerebral parenchyma: No acute intraparenchymal hemorrhage or mass effect. The remainder of the go- white junctions are well differentiated. Remote lacunar injury involving the left subcapsular white m atter. Cerebellum: Unremarkable. Mass effect: No evidence of midline shift. Intracranial vasculature: Atherosclerotic calcifications of the intracranial vessels. Soft tissues: Normal. Calvarium/osseous structures: No depressed skull fracture. Paranasal sinuses and mastoid air cells: Clear. Mastoid air cells are Clear Visualized orbits: Bilateral aphakia IMPRESSION: 1. No acute intracranial process. 2. Remote left lacunar injury.
[2023-03-07 21:17] LABS: INR 1.1 (<1.2); Partial Thromboplastin Time 22.7 sec (22.0-30.0); Prothrombin Time 11.3 sec (9.0-12.0)
[2023-03-07 21:46] LABS: ALT 23 U/L (4-34); AST 36 U/L (14-36); African American GFR (CKD) 80 (>60 ml/min/1.73 sqM); Albumin 3.8 g/dL (3.5-5.0); Alkaline Phosphatase 53 U/L (38-126); Anion Gap 8 mmol/L; Blood Urea Nitrogen 24 mg/dL (7-17); Calcium 8.8 mg/dL (8.4-10.2); Carbon Dioxide 22 mmol/L (22-30); Chloride 106 mmol/L (98-107); Glucose 112 mg/dL (74-99); Non-African American GFR(CKD) 69 (>60 ml/min/1.73 sqM); Potassium 4.4 mmol/L (3.5-5.1); Sodium 136 mmol/L (137-145); Total Bilirubin 0.6 mg/dL (0.2-1.3); Total Protein 6.7 g/dL (6.3-8.2)
[2023-03-07] MEDS ORDERED: SODIUM CHLORIDE 0.9% 500 ML 500 ML IV STA (21:59)
[2023-03-07 23:29] LABS: Appearance,Urine Clear (Clear); Bilirubin,Urine Negative (Negative); Blood,Urine Negative (Negative); Color,Urine Yellow; Glucose,Urine (UA) Trace (Negative); Ketones,Urine 1+ (Negative); Leukocyte Esterase,Urine Moderate (Negative); Mucus,Urine Rare /hpf; Nitrite,Urine Negative (Negative); PH, Urine 6.5 (5.0-8.0); Protein,Urine Negative (Negative); RBC,Urine 6 /hpf (0-5); Urobilinogen,Urine <2.0 mg/dL (<2.0); WBC,Urine 15 /hpf (0-5)
[2023-03-07 23:42] LABS: Amphetamine Screen,Urine Not Detected (NotDetected); Barbiturate Screen,Urine Not Detected (NotDetected); Benzodiazepines Screen,Urine Not Detected (NotDetected); Cocaine Screen,Urine Not Detected (NotDetected); Methadone Screen, Urine Not Detected (NotDetected); Opiate Screen,Urine Not Detected (NotDetected); Oxycodone Screen, Urine Not Detected (NotDetected); Phencyclidine Screen,Urine Not Detected (NotDetected); Tricyclic Antidepressant,Urine Not Detected (NotDetected); Urn Cannabinoid Scrn Not Detected (NotDetected)
[2023-03-08] MEDS ORDERED: ACETAMINOPHEN TAB 325 MG TAB PO PRN (00:27)
[2023-03-08] MEDS ORDERED: NALOXONE 0.4 MG/ML 1 ML VIAL IV PRN (00:27)
[2023-03-08] MEDS: NITROFURANTOIN MONOHYD/M-CRYST 100 MG CAP PO SCH ×2 (01:09→08:21)
[2023-03-08] MEDS: SODIUM CHLORIDE 0.9% 1,000 ML IV SCH ×2 (01:10→13:52)
--- NOTE | 2023-03-08 01:17 | ED ---
Altered Mental Status HPI - General Chief Complaint: Altered Mental Status Stated Complaint: AMS Time Seen by Provider: 03/07/23 20:12 Source: EMS Mode of arrival: EMS Limitations: altered mental status - History of Present Illness Initial Comments: This patient is 57-year-old woman brought to have evaluation for altered mental status. Was reported to me that EMS had been called and found that the patient's blood sugar was somewhat low. The patient had been given sugar and then the sugar responded. On arrival here, the patient is not able to provide any history. She does follow commands but not giving any verbal responses. Family has not arrived at the bedside yet and not able to give any additional history therefore. MD Complaint: altered mental status -: hour(s) Severity: moderate Consistency of Symptoms: constant Context: diabetes Associated Symptoms: denies other symptoms Treatments Prior to Arrival: glucose - Related Data Home Medications Medication Instructions Recorded Confirmed Insulin Aspart (For Pump) [NovoLOG 0.01 unit SQ-PUMP CONTINUOUS 05/24/17 03/08/23 (For Pump)] Escitalopram Oxalate [Lexapro] 20 mg PO DAILY 10/27/21 03/08/23 Haloperidol Decanoate [Haldol D] 200 mg IM Q14D 10/27/21 03/08/23 Glucagon [Gvoke Pfs 1-Pack Syringe] 1 mg SQ ONCE PRN 01/27/23 03/08/23 hydrOXYzine pamoate [Vistaril] 25 mg PO AC-BID 01/27/23 03/08/23 hydrOXYzine pamoate [Vistaril] 50 mg PO HS 03/08/23 03/08/23 Allergies Allergy/AdvReac Type Severity Reaction Status Date / Time divalproex sodium AdvReac unable to Verified 03/08/23 08:08 [From Depakote] walk/talk Milk Containing Products AdvReac Nausea & Verified 03/08/23 08:08 [Dairy] Vomiting & Diarrhea paliperidone [From Invega] AdvReac Confusion Verified 03/08/23 08:08 risperidone [From Risperdal] AdvReac neutropenia Verified 03/08/23 08:08 cortisol AdvReac Unknown Uncoded 03/08/23 08:08 Review of Systems ROS Statement: Those systems with pertinent positive or pertinent negative responses have been documented in the HPI. ROS Other: All systems not noted in ROS Statement are negative. Limitations: ROS unobtainable due to patients medical condition Constitutional: Denies: fever Respiratory: Denies: cough, dyspnea Gastrointestinal: Denies: abdominal pain, vomiting Past Medical History Past Medical History: Diabetes Mellitus Additional Past Medical History / Comment(s): Chronic kidney disease per patient History of Any Multi-Drug Resistant Organisms: None Reported Past Surgical History: Hysterectomy, Orthopedic Surgery, Tonsillectomy Additional Past Surgical History / Comment(s): Right ankle repair Past Psychological History: Depression, Schizophrenia Smoking Status: Never smoker Past Alcohol Use History: None Reported Past Drug Use History: None Reported General Exam Limitations: altered mental status General appearance: alert, in no apparent distress Head exam: Present: atraumatic, normocephalic Eye exam: Present: normal appearance, PERRL. Absent: scleral icterus, conjunctival injection, nystagmus ENT exam: Present: mucous membranes dry Neck exam: Present: normal inspection, full ROM. Absent: tenderness, meningismus Respiratory exam: Present: normal lung sounds bilaterally. Absent: respiratory distress, wheezes, rales, rhonchi, stridor Cardiovascular Exam: Present: regular rate, normal rhythm, normal heart sounds. Absent: systolic murmur, diastolic murmur, rubs, gallop GI/Abdominal exam: Present: soft. Absent: distended, tenderness, guarding, rebound, rigid, mass Extremities exam: Present: normal inspection, normal capillary refill. Absent: pedal edema, calf tenderness Back exam: Present: normal inspection. Absent: CVA tenderness (R), CVA tenderness (L) Neurological exam: Present: alert, CN II-XII intact. Absent: motor sensory deficit Skin exam: Present: warm, dry, intact, normal color. Absent: rash Course Vital Signs 03/07/23 03/07/23 03/08/23 20:06 22:13 03:00 Temperature 97.5 F L 97.6 F Pulse Rate 86 65 70 Respiratory 20 20 18 Rate Blood Pressure 165/83 131/74 149/76 O2 Sat by Pulse 97 96 97 Oximetry 03/08/23 03/08/23 03/08/23 05:32 06:56 07:52 Temperature Pulse Rate 67 71 76 Respiratory 18 Rate Blood Pressure 153/73 148/67 O2 Sat by Pulse 96 99 98 Oximetry Medical Decision Making - Medical Decision Making Patient's 57-year-old woman sent here to have evaluation altered mental status. The patient becoming more alert and responsive. Patient's mother states that she just does not appear back at baseline yet. Patient will be admitted to have further evaluation for altered mental status, including neurology consultation. Case discussed with admitting physician. - Lab Data Result diagrams: 03/07/23 20:38 03/07/23 20:38 Lab Results 03/07/23 03/07/23 03/07/23 Range/Units 20:14 20:38 20:38 WBC 2.9 L (3.8-10.6) k/uL RBC 4.04 (3.80-5.40) m/uL Hgb 12.5 (11.4-16.0) gm/dL Hct 39.0 (34.0-46.0) % MCV 96.7 (80.0-100.0) fL MCH 30.8 (25.0-35.0) pg MCHC 31.9 (31.0-37.0) g/dL RDW 13.6 (11.5-15.5) % Plt Count 160 (150-450) k/uL MPV 8.2 Neutrophils % 48 % Lymphocytes % 33 % Monocytes % 12 % Eosinophils % 2 % Basophils % 1 % Neutrophils # 1.4 (1.3-7.7) k/uL Lymphocytes # 0.9 L (1.0-4.8) k/uL Monocytes # 0.4 (0-1.0) k/uL Eosinophils # 0.1 (0-0.7) k/uL Basophils # 0.0 (0-0.2) k/uL PT 11.3 (9.0-12.0) sec INR 1.1 (<1.2) APTT 22.7 (22.0-30.0) sec Sodium (137-145) mmol/L Potassium (3.5-5.1) mmol/L Chloride (98-107) mmol/L Carbon Dioxide (22-30) mmol/L Anion Gap mmol/L BUN (7-17) mg/dL Creatinine (0.52-1.04) mg/dL Est GFR (CKD-EPI)AfAm (>60 ml/min/1.73 sqM) Est GFR (CKD-EPI)NonAf (>60 ml/min/1.73 sqM) Glucose (74-99) mg/dL POC Glucose (mg/dL) 113 H (70-110) mg/dL POC 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 [employer] Moira Ballard Calcium (8.4-10.2) mg/dL Total Bilirubin (0.2-1.3) mg/dL AST (14-36) U/L ALT (4-34) U/L Alkaline Phosphatase (38-126) U/L Troponin I (0.000-0.034) ng/mL Total Protein (6.3-8.2) g/dL Albumin (3.5-5.0) g/dL Urine Color Urine Appearance (Clear) Urine pH (5.0-8.0) Ur Specific [place] (1.001-1.035) Urine Protein (Negative) Urine Glucose (UA) (Negative) Urine Ketones (Negative) Urine Blood (Negative) Urine Nitrite (Negative) Urine Bilirubin (Negative) Urine Urobilinogen (<2.0) mg/dL Ur Leukocyte Esterase (Negative) Urine RBC (0-5) /hpf Urine WBC (0-5) /hpf Urine Mucus (None) /hpf Urine Opiates Screen (NotDetected) Ur Oxycodone Screen (NotDetected) Urine Methadone Screen (NotDetected) Ur Propoxyphene Screen (NotDetected) Ur Barbiturates Screen (NotDetected) U Tricyclic Antidepress (NotDetected) Ur Phencyclidine Scrn (NotDetected) Ur Amphetamines Screen (NotDetected) U Methamphetamines Scrn (NotDetected) U Benzodiazepines Scrn (NotDetected) Urine Cocaine Screen (NotDetected) U Marijuana (THC) Screen (NotDetected) 03/07/23 03/07/23 03/07/23 Range/Units 20:38 20:38 23:03 WBC (3.8-10.6) k/uL RBC (3.80-5.40) m/uL Hgb (11.4-16.0) gm/dL Hct (34.0-46.0) % MCV (80.0-100.0) fL MCH (25.0-35.0) pg MCHC (31.0-37.0) g/dL RDW (11.5-15.5) % Plt Count (150-450) k/uL MPV Neutrophils % % Lymphocytes % % Monocytes % % Eosinophils % % Basophils % % Neutrophils # (1.3-7.7) k/uL Lymphocytes # (1.0-4.8) k/uL Monocytes # (0-1.0) k/uL Eosinophils # (0-0.7) k/uL Basophils # (0-0.2) k/uL PT (9.0-12.0) sec INR (<1.2) APTT (22.0-30.0) sec Sodium 136 L (137-145) mmol/L Potassium 4.4 (3.5-5.1) mmol/L Chloride 106 (98-107) mmol/L Carbon Dioxide 22 (22-30) mmol/L Anion Gap 8 mmol/L BUN 24 H (7-17) mg/dL Creatinine 0.92 (0.52-1.04) mg/dL Est GFR (CKD-EPI)AfAm 80 (>60 ml/min/1.73 sqM) Est GFR (CKD-EPI)NonAf 69 (>60 ml/min/1.73 sqM) Glucose 112 H (74-99) mg/dL POC Glucose (mg/dL) (70-110) mg/dL POC 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0) mg/dL Ur Leukocyte Esterase Moderate H (Negative) Urine RBC 6 H (0-5) /hpf Urine WBC 15 H (0-5) /hpf Urine Mucus Rare H (None) /hpf Urine Opiates Screen Not Detected (NotDetected) Ur Oxycodone Screen Not Detected (NotDetected) Urine Methadone Screen Not Detected (NotDetected) Ur Propoxyphene Screen Not Detected (NotDetected) Ur Barbiturates Screen Not Detected (NotDetected) U Tricyclic Antidepress Not Detected (NotDetected) Ur Phencyclidine Scrn Not Detected (NotDetected) Ur Amphetamines Screen Not Detected (NotDetected) U Methamphetamines Scrn Not Detected (NotDetected) U Benzodiazepines Scrn Not Detected (NotDetected) Urine Cocaine Screen Not Detected (NotDetected) U Marijuana (THC) Screen Not Detected (NotDetected) Disposition
[2023-03-08] MEDS ORDERED: DEXTROSE 50% SYRINGE 50 ML IVP STA (04:15)
[2023-03-08 04:18] LABS: Glucose,Whole Blood 39 mg/dL (70-110)
[2023-03-08 04:55] LABS: Glucose,Whole Blood 114 mg/dL (70-110)
[2023-03-08 05:45] LABS: Glucose,Whole Blood 103 mg/dL (70-110)
[2023-03-08 06:51] LABS: Glucose,Whole Blood 211 mg/dL (70-110)
[2023-03-08 08:18] LABS: Glucose,Whole Blood 292 mg/dL (70-110)
[2023-03-08] MEDS ORDERED: ESCITALOPRAM 20 MG TAB PO SCH (10:45)
[2023-03-08] MEDS ORDERED: NON FORMULARY DRUG (Insulin Aspart (For Pump) [Novolog (For Pump)] 100 UNIT/ML Vial) SQ SCH (10:45)
[2023-03-08 12:51] LABS: Glucose,Whole Blood 389 mg/dL (70-110)
[2023-03-08] MEDS ORDERED: LACTULOSE 20 GM/30 ML CUP PO STA (13:23)
[2023-03-08] MEDS ORDERED: DEXTROSE 50% SYRINGE 50 ML IVP PRN ×2 (13:24)
[2023-03-08] MEDS ORDERED: HALOPERIDOL DECANOATE 100 MG/ML 1 ML VIAL IM STA (13:31)
[2023-03-08] MEDS: INSULIN ASPART (NovoLOG) 100 UNIT/ML VIAL SQ SCH ×2 (13:51→18:38)
--- NOTE | 2023-03-08 14:28 | P.CNNES ---
History of Present Illness Consult date: 03/08/23 Requesting physician: Dario Perez Reason for Consult: Altered mental status History of Present Illness: Patient is a 57-year-old female with history of diabetes for 49 years came to the hospital by ambulance yesterday at 08:03 PM for episode of unresponsiveness. Patient states that she was laying in the bed when she went to sleep and was unconscious. Patient's mother called EMS. She lives with her mother, who is 84 years of age. Patient states that she usually passes out when she has low blood sugars. Patient states that she has passed out "too many to count" in the past related to hypoglycemia. I tried to call patient's mother to get more information, but was not available. Left message on her voicemail to call back. As per EMS flow sheet, when they arrived, found patient that was unresponsive. Patient is a known diabetic and when her sugar was checked, it was low at 44. Patient's IV was established and was given 20 g and 500 mL of normal saline ran as medium grade drip. Patient was given 25 g of dextrose 50% IV. Patient's mother mentioned that she took her insulin earlier but went to lay down and didn't eat. Patient regained consciousness but somewhat still very altered Recheck blood sugar was 207. Patient had her eyes open, but was not responding to the questions. She was able to follow some commands like being assisted to a chair and the cot. EKG showed sinus rhythm. Patient's blood pressure at the scene was 148/94, pulse rate 97, respirations 18, saturation 95%. Blood sugar 44, then 207 then 164. Patient's blood test shows WBC 2.9, hemoglobin 12.5, platelets 160. PT/PTT normal. Sodium 136 potassium 4.4, renal functions normal. Blood sugar on arrival was 113. Troponin negative, hepatic panel normal, UA shows moderate amount of leukocyte Estrace. Urine drug screen negative. Patient's repeat blood glucose was 39 on 03/08/2023. CT head revealed no acute process. Remote left lacunar injury. I personally reviewed CT head, agree with the findings. 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 This was present also in the MRI of the brain from 04/25/2018. Chest x-ray showed no acute cardiopulmonary disease. Patient takes insulin, Haldol, Lexapro 20 mg, Vistaril, glucagon. Patient states she is a schizophrenic for last 49 years. Patient denies any history of stroke. Patient denies any tobacco or alcohol use in the past. She does not use any assistive device, unless she slightly dizzy when she uses a walker. Review of Systems Constitutional: Denies chills, Denies fever Eyes: bilateral pain (Has it for one year. Mostly present all the time. Seen health tech, don't know the cause.), denies blurred vision (Only if high blood sugar, gets blurred vision.), denies diplopia Ears: deny: decreased hearing, tinnitus Ears, nose, mouth and throat: Denies headache (Sometimes only), Denies sore throat Cardiovascular: Denies chest pain, Denies shortness of breath Respiratory: Denies cough, Denies excessive sputum Gastrointestinal: Reports constipation, Denies abdominal pain, Denies diarrhea, Denies nausea, Denies vomiting Genitourinary: Denies dysuria, Denies hematuria Musculoskeletal: Reports low back pain, Denies myalgias, Denies neck pain Integumentary: Denies pruritus, Denies rash Neurological: Reports as per HPI Psychiatric: Reports anxiety, Reports depression Past Medical History Past Medical History: Diabetes Mellitus Additional Past Medical History / Comment(s): Chronic kidney disease per patient History of Any Multi-Drug Resistant Organisms: None Reported Past Surgical History: Hysterectomy, Orthopedic Surgery, Tonsillectomy Additional Past Surgical History / Comment(s): Right ankle repair Past Psychological History: Depression, Schizophrenia Smoking Status: Never smoker Past Alcohol Use History: None Reported Past Drug Use History: None Reported Medications and Allergies Home Medications Medication Instructions Recorded Confirmed Type Insulin Aspart (For Pump) [NovoLOG 0.01 unit SQ-PUMP CONTINUOUS 05/24/17 03/08/23 History (For Pump)] Escitalopram Oxalate [Lexapro] 20 mg PO DAILY 10/27/21 03/08/23 History Haloperidol Decanoate [Haldol D] 200 mg IM Q14D 10/27/21 03/08/23 History Glucagon [Gvoke Pfs 1-Pack Syringe] 1 mg SQ ONCE PRN 01/27/23 03/08/23 History hydrOXYzine pamoate [Vistaril] 25 mg PO AC-BID 01/27/23 03/08/23 History hydrOXYzine pamoate [Vistaril] 50 mg PO HS 03/08/23 03/08/23 History Allergies Allergy/AdvReac Type Severity Reaction Status Date / Time divalproex sodium AdvReac unable to Verified 03/08/23 08:08 [From Depakote] walk/talk Milk Containing Products AdvReac Nausea & Verified 03/08/23 08:08 [Dairy] Vomiting & Diarrhea paliperidone [From Invega] AdvReac Confusion Verified 03/08/23 08:08 risperidone [From Risperdal] AdvReac neutropenia Verified 03/08/23 08:08 cortisol AdvReac Unknown Uncoded 03/08/23 08:08 Physical Examination - Vital Signs Vital Signs: Vital Signs Temp Pulse Resp BP Pulse Ox 03/08/23 07:52 76 18 98 03/08/23 06:56 71 148/67 99 03/08/23 05:32 67 153/73 96 03/08/23 03:00 70 18 149/76 97 03/07/23 22:13 97.6 F 65 20 131/74 96 03/07/23 20:06 97.5 F L 86 20 165/83 97 Intake and Output 03/07/23 03/08/23 03/08/23 22:59 06:59 14:59 Other: Weight 77.111 kg Patient is a middle aged female, in no acute distress. Patient appears older than her stated age. Patient is alert awake oriented to time place and person. She knows it is February 2023 and this is in [facility]. She knows name of the current president. Speech and language functions are normal. Patient can name and repeat very well. No aphasia or dysarthria. Attention, concentration and fund of knowledge is adequate. Patient has somewhat slow mentation, prolonged latency to answer questions. On cranial nerve examination, pupils are equal, round and reacting to light, visual [place] are full on confrontation, with no neglect on double simultaneous simulation. Extraocular muscles are intact with no nystagmus. Face is symmetric, tongue protrudes to the midline. Palatal elevation and sensation normal, hearing and shoulder shrug normal, facial sensation normal. On muscle strength testing, there is no pronator drift and the strength is normal in arms and legs distally and proximally. Deep tendon reflexes are symmetric 1+ in the upper limbs at biceps and brachioradialis, 2 at the knees and ankles bilaterally and plantars are withdrawal bilaterally. Sensory to touch is equal with no neglect on double simultaneous stimulation. Cerebellar function showed no ataxia for [id number] testing. No dysdiadochokinesia. No ataxia for [id number] testing on either side. Tone and bulk of muscles normal. Gait deferred.. On general examination, there is no carotid bruit or murmur, S1-S2 audible. Chest is clear on consultation. Abdomen is soft nontender. No organomegaly, bowel sounds present. Peripheral pulses are present. No edema. Results - Laboratory Findings CBC and BMP: 03/07/23 20:38 03/07/23 20:38 Abnormal Lab Findings: Abnormal Labs 03/07/23 03/07/23 03/07/23 20:14 20:38 20:38 WBC 2.9 L Lymphocytes # 0.9 L Sodium 136 L BUN 24 H Glucose 112 H POC Glucose (mg/dL) 113 H Urine Glucose (UA) Urine Ketones Ur Leukocyte Esterase Urine RBC Urine WBC Urine Mucus 03/07/23 03/08/23 03/08/23 23:03 04:12 04:54 WBC Lymphocytes # Sodium BUN Glucose POC Glucose (mg/dL) 39 L 114 H Urine Glucose (UA) Trace H Urine Ketones 1+ H Ur Leukocyte Esterase Moderate H Urine RBC 6 H Urine WBC 15 H Urine Mucus Rare H 03/08/23 03/08/23 06:47 08:11 WBC Lymphocytes # Sodium BUN Glucose POC Glucose (mg/dL) 211 H 292 H Urine Glucose (UA) Urine Ketones Ur Leukocyte Esterase Urine RBC Urine WBC Urine Mucus Assessment and Plan Assessment: * Episode of unresponsiveness, likely due to hypoglycemia. Patient's blood sugar was 44 at the scene. Patient states that she has history of passing out from hypoglycemia numerous times in the past. * Diabetes * Schizophrenia, per patient report. Plan: * EEG evaluate for epileptiform activity * Carotid Doppler * 2-D echo * Avoid further episodes of hypoglycemia. Patient counseled about compliant with medication and diet. This time she did not take her meals after receiving insulin, which lead to hypoglycemia. * Neurologically will be clear, if above tests come back normal. * Thank you for the consult.
[2023-03-08 16:03] LABS: Glucose,Whole Blood 279 mg/dL (70-110)
--- NOTE | 2023-03-08 16:03 | US ---
EXAMINATION TYPE: US carotid duplex BILAT DATE OF EXAM: 03/08/2023 COMPARISON: NONE CLINICAL INDICATION: Female, 57 years old with history of Syncope; AMS TECHNIQUE: Carotid duplex ultrasound examination. Indirect Doppler criteria was utilized. FINDINGS: EXAM MEASUREMENTS: RIGHT: Peak Systolic Velocity (PSV) cm/sec ----- Right CCA: 110.0 ----- Right ICA: 91.8 ----- Right ECA: 112.0 ICA/CCA ratio: 0.8 RIGHT: End Diastole cm/sec ----- Right CCA: 12.3 ----- Right ICA: 16.0 ----- Right ECA: 0.0 LEFT: Peak Systolic Velocity (PSV) cm/sec ----- Left CCA: 103.0 ----- Left ICA: 74.8 ----- Left ECA: 65.3 ICA/CCA ratio: 0.7 LEFT: End Diastole cm/sec ----- Left CCA: 13.3 ----- Left ICA: 15.1 ----- Left ECA: 0.0 VERTEBRALS (direction of flow): Right Vertebral: Antegrade Left Vertebral: Antegrade Rhythm: Normal MEDICAL LEADER NOTES: Mild homogeneous plaque with no significant stenosis seen IMPRESSION: No evidence for hemodynamically significant stenosis. Criteria for Assigning % of Stenosis / Diameter reduction (Estimation based on the indirect measurements of the internal carotid artery velocities (ICA PSV). 1. Normal (no stenosis)=ICA PSV < 125 cm/s: ratio < 2.0: ICA EDV<40 cm/s. 2. Less than 50% stenosis=ICA PSV < 125 cm/s: ratio < 2.0: ICA EDV<40 cm/s. 3. 50 to 69% stenosis=ICA PSV of 125 to 230 cm/s: ration 2.0 ? 4.0: ICA EDV 40-100 cm/s. 4. Greater than 70% stenosis to near occlusion= ICA PSV > 230 cm/s: ratio > 4.0: ICA EDV > 100 cm/s. 5. Near occlusion= ICA PSV velocities may be low or undetectable: variable ratio and ICA EDV. 6. Total occlusion=unable to detect flow.
--- NOTE | 2023-03-08 17:03 | CA ---
Transthoracic Echo Report Name: Brandie Rodriguez Age: 57 Gender: F : 1965 Exam Date: 03/08/2023 14:30 Exam Location: [facility] Ht (in): 65 Wt (lb): 170 Ordering Physician: Lisa Powers MD Attending/Referring Phys: Facilities Mechanical Design Engineer Heladio Cerrato Procedure CPT: Indications: Syncope Cardiac Hx: Technical Quality: Fair Contrast 1: Total Dose (mL): Contrast 2: Total Dose (mL): MEASUREMENTS (Male / Female) Normal Values 2D ECHO LV Diastolic Diameter PLAX 3.4 cm 4.2 - 5.9 / 3.9 - 5.3 cm LV Systolic Diameter PLAX 2.5 cm IVS Diastolic Thickness 1.1 cm 0.6 - 1.0 / 0.6 - 0.9 cm LVPW Diastolic Thickness 1.1 cm 0.6 - 1.0 / 0.6 - 0.9 cm LV Relative Wall Thickness 0.6 RV Internal Dim ED PLAX 2.0 cm LVOT Diameter 2.0 cm Aortic Root Diameter 2.8 cm LA Systolic Diameter LX 2.5 cm 3.0 - 4.0 / 2.7 - 3.8 cm LV Diastolic Volume MOD BP 35.9 cm??? 67 - 155 / 56 - 104 cm??? LV Systolic Volume MOD BP 12.3 cm??? 22 - 58 / 19 - 49 cm??? LV Ejection Fraction MOD BP 65.9 % >= 55 % LV Diastolic Volume MOD 4C 37.2 cm??? LV Systolic Volume MOD 4C 10.8 cm??? LV Ejection Fraction MOD 4C 71.1 % LV Diastolic Length 4C 5.5 cm LV Systolic Length 4C 5.0 cm LV Diastolic Volume MOD 2C 33.5 cm??? LV Systolic Volume MOD 2C 12.4 cm??? LV Ejection Fraction MOD 2C 62.8 % LV Diastolic Length 2C 5.7 cm LV Systolic Length 2C 4.3 cm LA Volume 32.6 cm??? 18 - 58 / 22 - 52 cm??? Ascending Aorta Diameter 2.7 cm DOPPLER AV Peak Velocity 117.0 cm/s AV Peak Gradient 5.5 mmHg AI Peak Velocity 319.6 cm/s AI Peak Gradient 40.9 mmHg AI Pressure Half Time 706.8 ms LVOT Peak Velocity 116.4 cm/s LVOT Peak Gradient 5.4 mmHg AV Area Cont Eq pk 3.2 cm??? Mitral E Point Velocity 71.8 cm/s Mitral A Point Velocity 107.4 cm/s Mitral E to A Ratio 0.7 MV Deceleration Time 200.1 ms MV E' Velocity 4.7 cm/s Mitral E to MV E' Ratio 15.4 TR Peak Velocity 140.1 cm/s TR Peak Gradient 7.9 mmHg Right Ventricular Systolic Press 13.0 mmHg PV Peak Velocity 136.2 cm/s PV Peak Gradient 7.4 mmHg FINDINGS Left Ventricle Normal LV size. Mild concentric LVH.left ventricular ejection fraction is estimated at 55-60 %. Right Ventricle Normal right ventricular size. Right Atrium Normal right atrial size. Left Atrium Normal left atrial size. Mitral Valve Structurally normal mitral valve. Trace MR. Aortic Valve Trileaflet aortic valve. Mild to moderate AI. Tricuspid Valve Structurally normal tricuspid valve. Trace TR. Pulmonic Valve Structurally normal pulmonic valve. Mild PI. Pericardium Normal pericardium. Aorta Normal size aortic root and proximal ascending aorta. CONCLUSIONS Normal LV systolic function Mild to moderate aortic regurgitation Previewed by: Dr. Raymundo Evans MD (Electronically Signed) Final Date: 08 March 2023 17:02
[2023-03-08 17:20] LABS: Glucose,Whole Blood 257 mg/dL (70-110)
[2023-03-08] MEDS ORDERED: bisacodyL 10 MG SUPP RECTAL STA (17:34)
--- NOTE | 2023-03-08 17:50 | P.HPIM ---
History of Present Illness H&P Date: 03/08/23 Chief Complaint: Unconscious This is a pleasant 57 years old female with past medical history of diabetes mellitus on insulin pump. She has history of depression and schizophrenia, obstructive sleep apnea, CK D Patient does follow up with her felt hat steamer . Her md physician dermatologist is Dr. Reyna. Patient's mother called EMS as patient is unresponsive. Her sugar was down in the 40s. Patient not being hungry. Patient insulin pump was taken off in the ER. This morning she was up to 292. Patient admitted to the hospital. Not very keen on hospital for. She stated that she spoke to the insulin pump company and she is waiting for apart to come through for continues blood glucose monitoring. Patient felt hat steamer is aware of the same. Denies any respiratory, urinary symptoms. No symptoms of infection. Review of systems: GEN.: Tired EYES: Chronic eye pain. Some photophobia. HEENT: None NECK: None RESPIRATORY: None CARDIOVASCULAR: None GASTROINTESTINAL: None GENITOURINARY: None MUSCULOSKELETAL: None LYMPHATICS: None HEMATOLOGICAL: None PSYCHIATRY: None NEUROLOGICAL: None Past medical history to include: Diabetes mellitus, type, , depression and schizophrenia, obstructive sleep apnea, CK D Social history: No smoking or alcohol. Physical examination: VITAL SIGNS: 97.5, 96, 20, 131/74, 96% room air upon presentation GENERAL: BMI 28.3, laying in bed awake comfortable. EYES: Pupils equal. Conjunctiva normal. HEENT: External appearance of nose and ears normal, oral cavity grossly normal. NECK: JVD not raised; masses not palpable. HEART: First and second heart sounds are normal; no edema. LUNGS: Respiratory rate normal; clear to auscultation. ABDOMEN: Soft, nontender, liver spleen not palpable, no masses palpable. PSYCH: Alert and oriented x3; mood and affect normal. MUSCULOSKELETAL:No Clubbing/cyanosis;muscles-grossly intact NEUROLOGICAL: Cranial nerves grossly intact; no facial asymmetry, power and sensation grossly intact. LYMPHATICS: No lymph nodes palpable in the axilla and neck INVESTIGATIONS, reviewed in the clinical context: White count 2.9 hemoglobin 12.5 weight is 160 sodium 136 potassium 4.4 BUN 24 cr eatinine 0.9 to glucose 112 Initial Accu-Chek 39 Urine drug screen: Negative UA negative for nitrite, leukoesterase moderate EKG tracing personally reviewed by me-normal sinus with dose. Nonspecific T- wave changes. Chest x-ray film personally reviewed by me-no obvious infiltrate CT brain: Nothing acute Assessment and plan: -Metabolic encephalopathy, acute secondary to hypoglycemia Patient has no focal findings. Has recovered after she was coming up. Neurology consulted to rule out any other cause. No clinical evidence of infection. Patient had not eaten. -Insulin pump, malfunction Some part of the insulin pump has been ordered through the company. Patient i nformed me that. Her felt hat steamer is aware -depression and schizophrenia, On Haldol every 14 days, next dose due on March 10. On Lexapro -Chronic kidney disease stage II likely diabetic nephropathy Follows with Dr. Reyna -obstructive sleep apnea CPAP -Chronic eye discomfort and slight photophobia. Present for a long time. Patient does use sunglasses at baseline. Intermittently. Patient is now awake this morning. He wanted to communicate. Sliding scale coverage be done. Discussed with patient given a sandwich. Insulin pump has been put back. She is able to do the same. Neurology workup is in place. Discussed with the patient. Questions answered. Past Medical History Past Medical History: Diabetes Mellitus Additional Past Medical History / Comment(s): Chronic kidney disease per patient History of Any Multi-Drug Resistant Organisms: None Reported Past Surgical History: Hysterectomy, Orthopedic Surgery, Tonsillectomy Additional Past Surgical History / Comment(s): Right ankle repair Past Psychological History: Depression, Schizophrenia Smoking Status: Never smoker Past Alcohol Use History: None Reported Past Drug Use History: None Reported Medications and Allergies Home Medications Medication Instructions Recorded Confirmed Type Insulin Aspart (For Pump) [NovoLOG 0.01 unit SQ-PUMP CONTINUOUS 05/24/17 03/08/23 History (For Pump)] Escitalopram Oxalate [Lexapro] 20 mg PO DAILY 10/27/21 03/08/23 History Haloperidol Decanoate [Haldol D] 200 mg IM Q14D 10/27/21 03/08/23 History Glucagon [Gvoke Pfs 1-Pack Syringe] 1 mg SQ ONCE PRN 01/27/23 03/08/23 History hydrOXYzine pamoate [Vistaril] 25 mg PO AC-BID 01/27/23 03/08/23 History hydrOXYzine pamoate [Vistaril] 50 mg PO HS 03/08/23 03/08/23 History Allergies Allergy/AdvReac Type Severity Reaction Status Date / Time divalproex sodium AdvReac unable to Verified 03/08/23 08:08 [From Depakote] walk/talk Milk Containing Products AdvReac Nausea & Verified 03/08/23 08:08 [Dairy] Vomiting & Diarrhea paliperidone [From Invega] AdvReac Confusion Verified 03/08/23 08:08 risperidone [From Risperdal] AdvReac neutropenia Verified 03/08/23 08:08 cortisol AdvReac Unknown Uncoded 03/08/23 08:08 Physical Exam Vitals: Vital Signs Temp Pulse Resp BP Pulse Ox 03/08/23 07:52 76 18 98 03/08/23 06:56 71 148/67 99 03/08/23 05:32 67 153/73 96 03/08/23 03:00 70 18 149/76 97 03/07/23 22:13 97.6 F 65 20 131/74 96 03/07/23 20:06 97.5 F L 86 20 165/83 97 Intake and Output 03/07/23 03/08/23 03/08/23 22:59 06:59 14:59 Other: Weight 77.111 kg Results CBC & Chem 7: 03/07/23 20:38 03/07/23 20:38 Labs: Abnormal Lab Results - Last 24 Hours (Table) 03/07/23 03/07/23 03/07/23 Range/Units 20:14 20:38 20:38 WBC 2.9 L (3.8-10.6) k/uL Lymphocytes # 0.9 L (1.0-4.8) k/uL Sodium 136 L (137-145) mmol/L BUN 24 H (7-17) mg/dL Glucose 112 H (74-99) mg/dL POC Glucose (mg/dL) 113 H (70-110) mg/dL Urine Glucose (UA) (Negative) Urine Ketones (Negative) Ur Leukocyte Esterase (Negative) Urine RBC (0-5) /hpf Urine WBC (0-5) /hpf Urine Mucus (None) /hpf 03/07/23 03/08/23 03/08/23 Range/Units 23:03 04:12 04:54 WBC (3.8-10.6) k/uL Lymphocytes # (1.0-4.8) k/uL Sodium (137-145) mmol/L BUN (7-17) mg/dL Glucose (74-99) mg/dL POC Glucose (mg/dL) 39 L 114 H (70-110) mg/dL Urine Glucose (UA) Trace H (Negative) Urine Ketones 1+ H (Negative) Ur Leukocyte Esterase Moderate H (Negative) Urine RBC 6 H (0-5) /hpf Urine WBC 15 H (0-5) /hpf Urine Mucus Rare H (None) /hpf 03/08/23 03/08/23 Range/Units 06:47 08:11 WBC (3.8-10.6) k/uL Lymphocytes # (1.0-4.8) k/uL Sodium (137-145) mmol/L BUN (7-17) mg/dL Glucose (74-99) mg/dL POC Glucose (mg/dL) 211 H 292 H (70-110) mg/dL Urine Glucose (UA) (Negative) Urine Ketones (Negative) Ur Leukocyte Esterase (Negative) Urine RBC (0-5) /hpf Urine WBC (0-5) /hpf Urine Mucus (None) /hpf
[2023-03-08 19:46] VITALS: BP 104/63; PULSE 66; RESP 16; TEMP 98.2
--- NOTE | 2023-03-08 22:11 | P.DS ---
Providers Date of admission: 03/08/23 00:27 Expected date of discharge: 03/08/23 Attending physician: Nelson Escalante Consults: 03/08/23 00:27 Consult Physician Routine Consulting Provider: Bandar Davis Consult Reason/Comments: Altered mental status Do you want consulting provider notified?: Yes Primary care physician: [facility] Hospital Course: Chief Complaint: Unconscious This is a pleasant 57 years old female with past medical history of diabetes mellitus on insulin pump. She has history of depression and schizophrenia, obstructive sleep apnea, CK D Patient does follow up with her soaking pit operator . Her convolute tube winder is Dr. Reyna. Patient's mother called EMS as patient is unresponsive. Her sugar was down in the 40s. Patient not being hungry. Patient insulin pump was taken off in the ER. This morning she was up to 292. Patient admitted to the hospital. Not very keen on hospital for. She stated that she spoke to the insulin pump company and she is waiting for apart to come through for continues blood glucose monitoring. Patient soaking pit operator is aware of the same. Denies any respiratory, urinary symptoms. No symptoms of infection. Patient did eat. Insulin pump was put back on. She'll follow-up with her soaking pit operator. Being discharged Past medical history to include: Diabetes mellitus, type, , depression and schizophrenia, obstructive sleep apnea, CK D Social history: No smoking or alcohol. Physical examination: VITAL SIGNS: 97.5, 96, 20, 131/74, 96% room air upon presentation GENERAL: BMI 28.3, laying in bed awake comfortable. EYES: Pupils equal. Conjunctiva normal. HEENT: External appearance of nose and ears normal, oral cavity grossly normal. NECK: JVD not raised; masses not palpable. HEART: First and second heart sounds are normal; no edema. LUNGS: Respiratory rate normal; clear to auscultation. ABDOMEN: Soft, nontender, liver spleen not palpable, no masses palpable. PSYCH: Alert and oriented x3; mood and affect normal. MUSCULOSKELETAL:No Clubbing/cyanosis;muscles-grossly intact NEUROLOGICAL: Cranial nerves grossly intact; no facial asymmetry, power and sensation grossly intact. LYMPHATICS: No lymph nodes palpable in the axilla and neck INVESTIGATIONS, reviewed in the clinical context: White count 2.9 hemoglobin 12.5 weight is 160 sodium 136 potassium 4.4 BUN 24 creatinine 0.9 to glucose 112 Initial Accu-Chek 39 Urine drug screen: Negative UA negative for nitrite, leukoesterase moderate EKG tracing personally reviewed by me-normal sinus with dose. Nonspecific T- wave changes. Chest x-ray film personally reviewed by me-no obvious infiltrate CT brain: Nothing acute Assessment and plan: -Metabolic encephalopathy, acute secondary to hypoglycemia, corrected Patient has no focal findings. Has recovered after she was coming up. Neurology consulted to rule out any other cause. No clinical evidence of infection. Patient had not eaten. -Insulin pump, malfunction Some part of the insulin pump has been ordered through the company. Patient informed me that. Her soaking pit operator is aware -Diabetes mellitus type 1, uncontrolled with hypoglycemia On insulin pump -depression and schizophrenia, On Haldol every 14 days, next dose due on March 10. On Lexapro -Chronic kidney disease stage II likely diabetic nephropathy Follows with Dr. Reyna -obstructive sleep apnea CPAP -Chronic eye discomfort and slight photophobia. Present for a long time. Patient does use sunglasses at baseline. Intermittently. Disposition: Home Plan - Discharge Summary New Discharge Prescriptions: Continue Insulin Aspart (For Pump) [NovoLOG (For Pump)] 0.01 unit SQ-PUMP CONTINUOUS Haloperidol Decanoate [Haldol D] 200 mg IM Q14D hydrOXYzine pamoate [Vistaril] 25 mg PO AC-BID Glucagon [Gvoke Pfs 1-Pack Syringe] 1 mg SQ ONCE PRN PRN Reason: Severe hypoglycemia Escitalopram Oxalate [Lexapro] 20 mg PO DAILY hydrOXYzine pamoate [Vistaril] 50 mg PO HS Discharge Medication List Insulin Aspart (For Pump) [NovoLOG (For Pump)] 0.01 unit SQ-PUMP CONTINUOUS 05/24/17 [History] Escitalopram Oxalate [Lexapro] 20 mg PO DAILY 10/27/21 [History] Haloperidol Decanoate [Haldol D] 200 mg IM Q14D 10/27/21 [History] Glucagon [Gvoke Pfs 1-Pack Syringe] 1 mg SQ ONCE PRN 01/27/23 [History] hydrOXYzine pamoate [Vistaril] 25 mg PO AC-BID 01/27/23 [History] hydrOXYzine pamoate [Vistaril] 50 mg PO HS 03/08/23 [History] Follow up Appointment(s)/Referral(s): dr Hu [Other] - 1-2 Days Andrea Casanova DO [Primary Care Provider] - 1-2 days Discharge Disposition: HOME SELF-CARE
--- NOTE | 2023-03-09 01:00 | EEG ---
ELECTROENCEPHALOGRAM REPORT PREAMBLE: This is a 57-year-old female with history of frequent episodes of unresponsiveness related to hypoglycemia. This study is performed to evaluate for any epileptiform activity. EEG FINDINGS: This is a 21-channel digital EEG recorded with video component, utilizing 10/20 international system with referential and bipolar montages. Background consists of well-developed, moderately well regulated, mixed frequencies of low-voltage fast frequency beta intermixed with some alpha activity seen in bihemispheric region. Background is posterior dominant and reactive to eye opening and closing. Photic driving response was not clearly seen. Some drowsiness was seen with appearance of bilaterally symmetric theta frequency rhythm. Deeper stages of sleep were not seen. No definitive focal or generalized epileptiform activity was seen. IMPRESSION: This is a normal awake and drowsy EEG. No focal, lateralized, or epileptiform activity was seen. Slightly excessive low-voltage fast frequency beta activity suggests medication effect. [id number] / IJN: [id number] /
== END 2023-03-08 20:45 | disposition home or self-care (01) ==
LOC: EC 20:03 → 6NMEDSUR 03-08 00:27
PROVIDERS: ADMIT Hospitalist; ATTEND Hospitalist
DX: E10.649 Type 1 diabetes mellitus with hypoglycemia without coma (principal); G93.41 Metabolic encephalopathy; T85.694A Other mechanical complication of insulin pump, initial encounter; I67.2 Cerebral atherosclerosis; F20.9 Schizophrenia, unspecified; F32.A Depression, unspecified; I12.9 Hypertensive chronic kidney disease with stage 1 through stage 4 chronic kidney disease, or unspecified chronic kidney disease; G47.33 Obstructive sleep apnea (adult) (pediatric); E10.22 Type 1 diabetes mellitus with diabetic chronic kidney disease; N18.2 Chronic kidney disease, stage 2 (mild); I35.1 Nonrheumatic aortic (valve) insufficiency; Z79.4 Long term (current) use of insulin; Z96.41 Presence of insulin pump (external) (internal); Z79.899 Other long term (current) drug therapy; Z88.8 Allergy status to other drugs, medicaments and biological substances; Z90.710 Acquired absence of both cervix and uterus; Z86.73 Personal history of transient ischemic attack (TIA), and cerebral infarction without residual deficits; Y84.8 Other medical procedures as the cause of abnormal reaction of the patient, or of later complication, without mention of misadventure at the time of the procedure
CPT/HCPCS: 96361 ×2; 96374; 99285; 51798; 36415; 95816; 93005; 93306; 80053; 84484; 85025; 85610; 85730; 81001; 80306; 71046; 93880; 70450; G0378

== ENCOUNTER 2023-10-03 15:55 | Observation (INO) | payer OTHER ==
[2023-10-03] MEDS: DEXTROSE 50% SYRINGE 50 ML IVP STA (15:57)
[2023-10-03] MEDS: diphenhydrAMINE 50 MG/ML 1 ML VIAL IVP STA (16:02)
[2023-10-03] MEDS: SODIUM CHLORIDE 0.9% 1,000 ML IV ONE (16:02)
[2023-10-03 16:03] LABS: Glucose,Whole Blood 85 mg/dL (70-110)
[2023-10-03 16:14] LABS: Glucose,Whole Blood 158 mg/dL (70-110)
[2023-10-03 16:16] LABS: Basophils % (A) 1 %; Eosinophils % (A) 0 %; HCT 41.7 % (34.0-46.0); HGB 13.8 gm/dL (11.4-16.0); Lymphocytes # (A) 0.9 k/uL (1.0-4.8); Lymphocytes % (A) 25 %; MCHC 33.2 g/dL (31.0-37.0); MCV 93.5 fL (80.0-100.0); Mean Platelet Volume 9.1; Monocytes # (A) 0.4 k/uL (0-1.0); Monocytes % (A) 11 %; Neutrophils # (A) 2.1 k/uL (1.3-7.7); Neutrophils % (A) 60 %; Platelet Count 169 k/uL (150-450); RBC 4.46 m/uL (3.80-5.40); RDW 12.7 % (11.5-15.5); WBC 3.5 k/uL (3.8-10.6)
[2023-10-03 16:27] LABS: Partial Thromboplastin Time 23.7 sec (22.0-30.0); Prothrombin Time 11.2 sec (10.0-12.5)
[2023-10-03 16:28] LABS: VBG PH 7.38 (7.31-7.41)
[2023-10-03 16:32] LABS: ALT 17 U/L (4-34); AST 24 U/L (14-36); African American GFR (CKD) 75 (>60 ml/min/1.73 sqM); Albumin 4.1 g/dL (3.5-5.0); Alcohol <10 mg/dL; Alkaline Phosphatase 64 U/L (38-126); Anion Gap 7 mmol/L; Blood Urea Nitrogen 21 mg/dL (7-17); Calcium 9.3 mg/dL (8.4-10.2); Carbon Dioxide 24 mmol/L (22-30); Chloride 108 mmol/L (98-107); Glucose 91 mg/dL (74-99); Non-African American GFR(CKD) 65 (>60 ml/min/1.73 sqM); Potassium 4.1 mmol/L (3.5-5.1); Sodium 139 mmol/L (137-145); Total Bilirubin 0.4 mg/dL (0.2-1.3); Total Protein 6.8 g/dL (6.3-8.2)
[2023-10-03 16:54] LABS: Glucose,Whole Blood 150 mg/dL (70-110)
[2023-10-03 16:58] LABS: Lactic Acid, Venous 0.9 mmol/L (0.7-2.0)
--- NOTE | 2023-10-03 17:13 | CT ---
EXAMINATION TYPE: CT brain wo con DATE OF EXAM: 10/03/2023 COMPARISON: 03/07/2023 HISTORY: Altered mental status CT DLP: 1195.4 mGycm Automated exposure control for dose reduction was used. FINDINGS: The ventricles, basal cisterns and sulci over convexities are within normal limits and there is no ma ss effect or shift of midline structures. There is a small remote lacunar infarct in the left basal ganglia unchanged from previous. There is no acute intracranial extra-axial hemorrhage. The posterior fossa is grossly normal. The intraorbital contents are normal and symmetric. Visualized paranasal sinuses and mastoid air cells are well aerated. IMPRESSION: 1. No acute bleed or mass effect. 2. Stable remote lacunar infarct in left basal ganglia. IMPRESSION:
--- NOTE | 2023-10-03 17:15 | XR ---
EXAMINATION TYPE: XR chest 2V DATE OF EXAM: 10/03/2023 COMPARISON: 03/07/2023 HISTORY: Altered mental status TECHNIQUE: Frontal and lateral views of the chest are obtained. FINDINGS: There is no focal air space opacity, pleural effusion, or pneumothorax seen. The cardiac silhouette size is within normal limits. There is questionable remote trauma to the distal right clav icle/AC joint unchanged compared to previous. IMPRESSION: No acute cardiopulmonary process.
--- NOTE | 2023-10-03 17:27 | CT ---
EXAMINATION TYPE: CT angio head neck DATE OF EXAM: 10/03/2023 HISTORY: AMS COMPARISON: None CT DLP: 517.9 mGycm. Automated Exposure Control for Dose Reduction was Utilized. TECHNIQUE: CTA scan of the head and neck is performed with IV Contrast, patient injected with 65cc m L of Isovue 370, axial images are obtained, coronal and sagittal reformatted images are reviewed. 3D reconstructed images are created on an independent workstation and reviewed. 3-D post processing was performed. FINDINGS: The brachiocephalic origins are widely patent without significant stenosis. There is no significant stenosis of the common or internal carotid arteries within the neck. 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 There is no occlusive disease, sizable aneurysm sac or vascular malformation intracranially. IMPRESSION: No significant abnormality seen. There is no evidence of arterial occlusive disease in the neck or he ad
[2023-10-03 17:29] LABS: Glucose,Whole Blood 156 mg/dL (70-110)
[2023-10-03 17:30] LABS: Appearance,Urine Clear (Clear); Bilirubin,Urine Negative (Negative); Blood,Urine Negative (Negative); Color,Urine Colorless; Glucose,Urine (UA) Trace (Negative); Ketones,Urine Negative (Negative); Leukocyte Esterase,Urine Large (Negative); Mucus,Urine Rare /hpf; Nitrite,Urine Negative (Negative); Protein,Urine Negative (Negative); RBC,Urine 24 /hpf (0-5); Specific Gravity,Urine 1.012 (1.001-1.035); Urobilinogen,Urine <2.0 mg/dL (<2.0); WBC,Urine 9 /hpf (0-5)
[2023-10-03 17:35] LABS: Amphetamine Screen,Urine Not Detected (NotDetected); Barbiturate Screen,Urine Not Detected (NotDetected); Benzodiazepines Screen,Urine Not Detected (NotDetected); Cocaine Screen,Urine Not Detected (NotDetected); Methadone Screen, Urine Not Detected (NotDetected); Opiate Screen,Urine Not Detected (NotDetected); Oxycodone Screen, Urine Not Detected (NotDetected); Phencyclidine Screen,Urine Not Detected (NotDetected); Tricyclic Antidepressant,Urine Not Detected (NotDetected); Urn Cannabinoid Scrn Not Detected (NotDetected)
[2023-10-03] MEDS ORDERED: NALOXONE 0.4 MG/ML 1 ML VIAL IV PRN (18:07)
--- NOTE | 2023-10-03 18:07 | ED ---
General Adult HPI - General Chief complaint: Altered Mental Status Stated complaint: AMS Time Seen by Provider: 10/03/23 15:55 Source: patient, family, EMS, RN notes reviewed, old records reviewed Mode of arrival: EMS Limitations: language barrier, altered mental status, physical limitation - History of Present Illness Initial comments: Patient is a 57-year-old female with past medical history remarkable for diabetes on an insulin pump, CKD, psychiatric illness who presents emergency department via EMS for altered mental status. Patient went to bed approximately 2 hours prior to arrival and awoke and was confused with weakness. Was not acting normally. Patient's blood sugar was low for EMS and they provided the patient with half an amp of D50. The remainder of the amp was provided once patient arrived in the emergency department. Patient remains confused at this time. They were concerned for possible neurological deficits however it seems to be diffuse. Patient cannot provide any history at this time. She seems to selectively follow some commands. Per EMS, family apparently has been adjusting insulin dosing as her sugars have been high. There is recently changes in her prescriptions to generic forms of the insulin and they are concerned that this is not effective. Patient presents for further evaluation at this time. Nedra ent's Accu-Cheks continue to decrease, as initially EMS had 150 and on presentation, Accu-Chek was in the 80s. Presents for further evaluation. - Related Data Home Medications Medication Instructions Recorded Confirmed Insulin Aspart (For Pump) [NovoLOG 0.01 unit SQ-PUMP CONTINUOUS 05/24/17 10/03/23 (For Pump)] Escitalopram Oxalate [Lexapro] 20 mg PO DAILY 10/27/21 10/03/23 Haloperidol Decanoate [Haldol D] 150 mg IM Q14D 10/27/21 10/03/23 Glucagon [Gvoke Pfs 1-Pack Syringe] 1 mg SQ ONCE PRN 01/27/23 10/03/23 Allergies Allergy/AdvReac Type Severity Reaction Status Date / Time divalproex sodium AdvReac unable to Verified 03/08/23 08:08 [From Depakote] walk/talk Milk Containing Products AdvReac Nausea & Verified 03/08/23 08:08 (Dairy) Vomiting & [Dairy] Diarrhea paliperidone [From Invega] AdvReac Confusion Verified 03/08/23 08:08 risperidone [From Risperdal] AdvReac neutropenia Verified 03/08/23 08:08 cortisol AdvReac Unknown Uncoded 03/08/23 08:08 Review of Systems ROS Statement: Those systems with pertinent positive or pertinent negative responses have been documented in the HPI. ROS Other: All systems not noted in ROS Statement are negative. Past Medical History Past Medical History: Diabetes Mellitus Additional Past Medical History / Comment(s): Chronic kidney disease per patient History of Any Multi-Drug Resistant Organisms: None Reported Past Surgical History: Hysterectomy, Orthopedic Surgery, Tonsillectomy Additional Past Surgical History / Comment(s): Right ankle repair Past Psychological History: Depression, Schizophrenia Smoking Status: Never smoker Past Alcohol Use History: None Reported Past Drug Use History: None Reported General Exam - General Exam Comments Initial Comments: General: Appears in no acute distress. HEAD: Normal with no signs of head trauma. EYES: PERRLA, EOMI, conjunctiva normal, no discharge. Pupils are 1 mm and equal bilaterally. ENT: Hearing grossly intact, normal oropharynx. RESPIRATORY: Clear breath sounds bilaterally. No wheezes, rales, or rhonchi. C/V: Regular rate and rhythm. S1 and S2 auscultated, no edema, peripheral pulses 2+ and intact throughout ABD: Abd is soft, nontender, nondistended EXT: Normal range of motion, no obvious deformity SKIN: No rashes or lesions observed on exposed skin. NEURO: Alert but not oriented. Is not following commands. Does respond to pain. No focal deficits. Is moving all 4 extremities. Is not speaking at this time. Per EMS, was speaking and then sugar once again was decreasing. Limitations: language barrier, altered mental status, physical limitation Course Vital Signs 10/03/23 10/03/23 16:00 17:34 Pulse Rate 86 80 Respiratory 17 18 Rate Blood Pressure 145/110 126/64 O2 Sat by Pulse 97 97 Oximetry Medical Decision Making - Medical Decision Making Was pt. sent in by a medical professional or institution (, PA, ACADEMIC GUIDANCE SPECIALIST, urgent care, hospital, or shelter...) When possible be specific @ -No Did you speak to anyone other than the patient for history (EMS, parent, family, police, friend...)? What history was obtained from this source @ -Spoke with EMS who provided information the HPI. Patient's mother also present at bedside who provides patient's recent past medical history as well as concern for insulin not functioning as intended. Did you review nursing and triage notes (agree or disagree)? Why? @ -I reviewed and agree with nursing and triage notes Were old charts reviewed (outside hosp., previous admission, EMS record, old EKG, old radiological studies, urgent care reports/EKG's, shelter records)? Report findings @ -Old charts reviewed Differential Diagnosis (chest pain, altered mental status, abdominal pain women, abdominal pain men, vaginal bleeding, weakness, fever, dyspnea, syncope, headache, dizziness, GI bleed, back pain, seizure, CVA, palpatations, mental health, musculoskeletal)? @ -Differential Altered Mental Status: Hypoglycemia, DKA, hypercapnia, ETOH, overdose, CO poisoning, trauma, myxedema coma, HTN encephalopathy, infection, encephalitis, psychosis, intercranial hemorrhage, hepatic encephalopathy, meningitis, CVA, this is not meant to be an all-inclusive list EKG interpreted by me (3pts min.). @ -As above X-rays interpreted by me (1pt min.). @ -Chest x-ray reveals no obvious acute cardiopulmonary process. CT interpreted by me (1pt min.). @ -CT brain without contrast reveals no obvious acute intracranial process. Remote infarct present. CT angiogram of the head and neck reveals no evidence of acute process. No evidence of significant stenosis. U/S interpreted by me (1pt. min.). @ -None done What testing was considered but not performed or refused? (CT, X-rays, U/S, lab s)? Why? @ -None What meds were considered but not given or refused? Why? @ -None Did you discuss the management of the patient with other professionals (professionals i.e. , PA, ACADEMIC GUIDANCE SPECIALIST, lab, RT, psych nurse, social media intern, brass pickler, teacher, data officer, therapeutic case manager)? Give summary @ -I spoke with the admitting physician, Dr. Escalante who accepted the admission. Was in agreement the plan. Requested I did make the antibiotics oral antibiotics for the UTI which was done. Was smoking cessation discussed for >3mins.? @ -No Was critical care preformed (if so, how long)? @ -No Were there social determinants of health that impacted care today? How? (Homelessness, low income, unemployed, alcoholism, drug addiction, transportation, low edu. Level, literacy, decrease access to med. care, halfway, rehab)? @ -No Was there de-escalation of care discussed even if they declined (Discuss DNR or withdrawal of care, Hospice)? DNR status @ -No What co-morbidities impacted this encounter? (DM, HTN, Smoking, COPD, CAD, Cancer, CVA, ARF, Chemo, Hep., AIDS, mental health diagnosis, sleep apnea, mor bid obesity)? @ -Diabetes on insulin pump Was patient admitted / discharged? Hospital course, mention meds given and route, prescriptions, significant lab abnormalities, going to OR and other pertinent info. @ -Based on the patient's presentation and physical exam, presents for altered mental status. Has no focal deficits but more general altered mental status. We will administer an additional amp of D50 as patient's sugars continue to decrease. We did remove her insulin pump. Vital signs are within acceptable limits. Patient does move all 4 extremities. Patient is on antipsychotics and will be administered a dose of Benadryl in case this is a type of dystonic reaction however I do suspect underlying etiology is the hypoglycemic episodes. We will obtain CT imaging of the brain, as well as broad workup. Patient was in agreement this plan. Vital signs are within acceptable limits. EKG shows no signs of acute ischemia. Imaging is unremarkable. Patient's laboratory studies are remarkable for a stable blood sugar. Patient has borderline urine concern for UTI. Otherwise within acceptable limits. On reevaluation, patient is back to her baseline mental status. This is con firmed with patient's mother. Is answering questions, following commands. Blood sugar has remained stable. I would like to admit the patient for monitoring of her blood sugar and she was in agreement this plan. She will be empirically started on antibiotics and urine culture sent. I spoke with the admitting physician, Dr. Escalante who accepted the admission. Was in agreement the plan. Requested I did make the antibiotics oral antibiotics for the UTI which was done. Will continue to monitor blood sugars every 2 hours. Insulin pump will be held at this time, and I did order sliding scale insulin at this time. Undiagnosed new problem with uncertain prognosis? @ -No Drug Therapy requiring intensive monitoring for toxicity (Heparin, Nitro, Insulin, Cardizem)? @ -No Were any procedures done? @ -No Diagnosis/symptom? @ -Altered mental status, hypoglycemia, UTI Acute, or Chronic, or Acute on Chronic? @ -Acute Uncomplicated (without systemic symptoms) or Complicated (systemic symptoms)? @ -Complicated Side effects of treatment? @ -No Exacerbation, Progression, or Severe Exacerbation? @ -No Poses a threat to life or bodily function? How? (Chest pain, USA, ID, pneumonia, PE, COPD, DKA, ARF, appy, cholecystitis, CVA, Diverticulitis, Homicidal, Suicidal, threat to staff... and all critical care pts) @ -Possibly, yes - Lab Data Result diagrams: 10/03/23 16:05 10/03/23 16:05 Lab Results 10/03/23 10/03/23 10/03/23 Range/Units 15:57 16:05 16:05 WBC 3.5 L (3.8-10.6) k/uL RBC 4.46 (3.80-5.40) m/uL Hgb 13.8 (11.4-16.0) gm/dL Hct 41.7 (34.0-46.0) % MCV 93.5 (80.0-100.0) fL MCH 31.0 (25.0-35.0) pg MCHC 33.2 (31.0-37.0) g/dL RDW 12.7 (11.5-15.5) % Plt Count 169 (150-450) k/uL MPV 9.1 Neutrophils % 60 % Lymphocytes % 25 % Monocytes % 11 % Eosinophils % 0 % Basophils % 1 % Neutrophils # 2.1 (1.3-7.7) k/uL Lymphocytes # 0.9 L (1.0-4.8) k/uL Monocytes # 0.4 (0-1.0) k/uL Eosinophils # 0.0 (0-0.7) k/uL Basophils # 0.0 (0-0.2) k/uL PT 11.2 (10.0-12.5) sec INR 1.0 (<1.2) APTT 23.7 (22.0-30.0) sec VBG pH (7.31-7.41) VBG pCO2 (37-51) mmHg VBG HCO3 (24-28) mmol/L Sodium (137-145) mmol/L Potassium (3.5-5.1) mmol/L Chloride (98-107) mmol/L Carbon Dioxide (22-30) mmol/L Anion Gap mmol/L BUN (7-17) mg/dL Creatinine (0.52-1.04) mg/dL Est GFR (CKD-EPI)AfAm (>60 ml/min/1.73 sqM) Est GFR (CKD-EPI)NonAf (>60 ml/min/1.73 sqM) Glucose (74-99) mg/dL POC Glucose (mg/dL) 85 (70-110) mg/dL POC Glu Forestry Engineer ID Toro Valentin Plasma Lactic Acid Louis (0.7-2.0) mmol/L Calcium (8.4-10.2) mg/dL Total Bilirubin (0.2-1.3) mg/dL AST (14-36) U/L ALT (4-34) U/L Alkaline Phosphatase (38-126) U/L Ammonia (<30) umol/L Troponin I (0.000-0.034) ng/mL Total Protein (6.3-8.2) g/dL Albumin (3.5-5.0) g/dL Urine Color Urine Appearance (Clear) Urine pH (5.0-8.0) Ur Specific [place] (1.001-1.035) Urine Protein (Negative) Urine Glucose (UA) (Negative) Urine Ketones (Negative) Urine Blood (Negative) Urine Nitrite (Negative) Urine Bilirubin (Negative) Urine Urobilinogen (<2.0) mg/dL Ur Leukocyte Esterase (Negative) Urine RBC (0-5) /hpf Urine WBC (0-5) /hpf Urine Mucus (None) /hpf Urine Opiates Screen (NotDetected) Ur Oxycodone Screen (NotDetected) Urine Methadone Screen (NotDetected) Ur Barbiturates Screen (NotDetected) U Tricyclic Antidepress (NotDetected) Ur Phencyclidine Scrn (NotDetected) Ur Amphetamines Screen (NotDetected) U Methamphetamines Scrn (NotDetected) U Benzodiazepines Scrn (NotDetected) Urine Cocaine Screen (NotDetected) U Marijuana (THC) Screen (NotDetected) Serum Alcohol mg/dL Acetone, Qual (Negative) Influenza Type A (PCR) (Not Detectd) Influenza Type B (PCR) (Not Detectd) RSV (PCR) (Not Detectd) SARS-CoV-2 (PCR) (Not Detectd) 10/03/23 10/03/23 10/03/23 Range/Units 16:05 16:05 16:05 WBC (3.8-10.6) k/uL RBC (3.80-5.40) m/uL Hgb (11.4-16.0) gm/dL Hct (34.0-46.0) % MCV (80.0-100.0) fL MCH (25.0-35.0) pg MCHC (31.0-37.0) g/dL RDW (11.5-15.5) % Plt Count (150-450) k/uL MPV Neutrophils % % Lymphocytes % % Monocytes % % Eosinophils % % Basophils % % Neutrophils # (1.3-7.7) k/uL Lymphocytes # (1.0-4.8) k/uL Monocytes # (0-1.0) k/uL Eosinophils # (0-0.7) k/uL Basophils # (0-0.2) k/uL PT (10.0-12.5) sec INR (<1.2) APTT (22.0-30.0) sec VBG pH (7.31-7.41) VBG pCO2 (37-51) mmHg VBG HCO3 (24-28) mmol/L Sodium 139 (137-145) mmol/L Potassium 4.1 (3.5-5.1) mmol/L Chloride 108 H (98-107) mmol/L Carbon Dioxide 24 (22-30) mmol/L Anion Gap 7 mmol/L BUN 21 H (7-17) mg/dL Creatinine 0.96 (0.52-1.04) mg/dL Est GFR (CKD-EPI)AfAm 75 (>60 ml/min/1.73 sqM) Est GFR (CKD-EPI)NonAf 65 (>60 ml/min/1.73 sqM) Glucose 91 (74-99) mg/dL POC Glucose (mg/dL) (70-110) mg/dL POC Glu Forestry Engineer ID Plasma Lactic Acid Louis 0.9 (0.7-2.0) mmol/L Calcium 9.3 (8.4-10.2) mg/dL Total Bilirubin 0.4 (0.2-1.3) mg/dL AST 24 (14-36) U/L ALT 17 (4-34) U/L Alkaline Phosphatase 64 (38-126) U/L Ammonia <9 (<30) umol/L Troponin I (0.000-0.034) ng/mL Total Protein 6.8 (6.3-8.2) g/dL Albumin 4.1 (3.5-5.0) g/dL Urine Color Urine Appearance (Clear) Urine pH (5.0-8.0) Ur Specific [place] (1.001-1.035) Urine Protein (Negative) Urine Glucose (UA) (Negative) Urine Ketones (Negative) Urine Blood (Negative) Urine Nitrite (Negative) Urine Bilirubin (Negative) Urine Urobilinogen (<2.0) mg/dL Ur Leukocyte Esterase (Negative) Urine RBC (0-5) /hpf Urine WBC (0-5) /hpf Urine Mucus (None) /hpf Urine Opiates Screen Not Detected (NotDetected) Ur Oxycodone Screen Not Detected (NotDetected) Urine Methadone Screen Not Detected (NotDetected) Ur Barbiturates Screen Not Detected (NotDetected) U Tricyclic Antidepress Not Detected (NotDetected) Ur Phencyclidine Scrn Not Detected (NotDetected) Ur Amphetamines Screen Not Detected (NotDetected) U Methamphetamines Scrn Not Detected (NotDetected) U Benzodiazepines Scrn Not Detected (NotDetected) Urine Cocaine Screen Not Detected (NotDetected) U Marijuana (THC) Screen Not Detected (NotDetected) Serum Alcohol <10 mg/dL Acetone, Qual Negative (Negative) Influenza Type A (PCR) (Not Detectd) Influenza Type B (PCR) (Not Detectd) RSV (PCR) (Not Detectd) SARS-CoV-2 (PCR) (Not Detectd) 10/03/23 10/03/23 10/03/23 Range/Units 16:05 16:05 16:05 WBC (3.8-10.6) k/uL RBC (3.80-5.40) m/uL Hgb (11.4-16.0) gm/dL Hct (34.0-46.0) % MCV (80.0-100.0) fL MCH (25.0-35.0) pg MCHC (31.0-37.0) g/dL RDW (11.5-15.5) % Plt Count (150-450) k/uL MPV Neutrophils % % Lymphocytes % % Monocytes % % Eosinophils % % Basophils % % Neutrophils # (1.3-7.7) k/uL Lymphocytes # (1.0-4.8) k/uL Monocytes # (0-1.0) k/uL Eosinophils # (0-0.7) k/uL Basophils # (0-0.2) k/uL PT (10.0-12.5) sec INR (<1.2) APTT (22.0-30.0) sec VBG pH (7.31-7.41) VBG pCO2 (37-51) mmHg VBG HCO3 (24-28) mmol/L Sodium (137-145) mmol/L Potassium (3.5-5.1) mmol/L Chloride (98-107) mmol/L Carbon Dioxide (22-30) mmol/L Anion Gap mmol/L BUN (7-17) mg/dL Creatinine (0.52-1.04) mg/dL Est GFR (CKD-EPI)AfAm (>60 ml/min/1.73 sqM) Est GFR (CKD-EPI)NonAf (>60 ml/min/1.73 sqM) Glucose (74-99) mg/dL POC Glucose (mg/dL) (70-110) mg/dL POC Glu Forestry Engineer ID Plasma Lactic Acid Louis (0.7-2.0) mmol/L Calcium (8.4-10.2) mg/dL Total Bilirubin (0.2-1.3) mg/dL AST (14-36) U/L ALT (4-34) U/L Alkaline Phosphatase (38-126) U/L Ammonia (<30) umol/L Troponin I 0.023 (0.000-0.034) ng/mL Total Protein (6.3-8.2) g/dL Albumin (3.5-5.0) g/dL Urine Color Colorless Urine Appearance Clear (Clear) Urine pH 6.0 (5.0-8.0) Ur Specific [place] 1.012 (1.001-1.035) Urine Protein Negative (Negative) Urine Glucose (UA) Trace H (Negative) Urine Ketones Negative (Negative) Urine Blood Negative (Negative) Urine Nitrite Negative (Negative) Urine Bilirubin Negative (Negative) Urine Urobilinogen <2.0 (<2.0) mg/dL Ur Leukocyte Esterase Large H (Negative) Urine RBC 24 H (0-5) /hpf Urine WBC 9 H (0-5) /hpf Urine Mucus Rare H (None) /hpf Urine Opiates Screen (NotDetected) Ur Oxycodone Screen (NotDetected) Urine Methadone Screen (NotDetected) Ur Barbiturates Screen (NotDetected) U Tricyclic Antidepress (NotDetected) Ur Phencyclidine Scrn (NotDetected) Ur Amphetamines Screen (NotDetected) U Methamphetamines Scrn (NotDetected) U Benzodiazepines Scrn (NotDetected) Urine Cocaine Screen (NotDetected) U Marijuana (THC) Screen (NotDetected) Serum Alcohol mg/dL Acetone, Qual (Negative) Influenza Type A (PCR) Not Detected (Not Detectd) Influenza Type B (PCR) Not Detected (Not Detectd) RSV (PCR) Not Detected (Not Detectd) SARS-CoV-2 (PCR) Not Detected (Not Detectd) 10/03/23 10/03/23 10/03/23 Range/Units 16:05 16:13 16:53 WBC (3.8-10.6) k/uL RBC (3.80-5.40) m/uL Hgb (11.4-16.0) gm/dL Hct (34.0-46.0) % MCV (80.0-100.0) fL MCH (25.0-35.0) pg MCHC (31.0-37.0) g/dL RDW (11.5-15.5) % Plt Count (150-450) k/uL MPV Neutrophils % % Lymphocytes % % Monocytes % % Eosinophils % % Basophils % % Neutrophils # (1.3-7.7) k/uL Lymphocytes # (1.0-4.8) k/uL Monocytes # (0-1.0) k/uL Eosinophils # (0-0.7) k/uL Basophils # (0-0.2) k/uL PT (10.0-12.5) sec INR (<1.2) APTT (22.0-30.0) sec VBG pH 7.38 (7.31-7.41) VBG pCO2 42 (37-51) mmHg VBG HCO3 25 (24-28) mmol/L Sodium (137-145) mmol/L Potassium (3.5-5.1) mmol/L Chloride (98-107) mmol/L Carbon Dioxide (22-30) mmol/L Anion Gap mmol/L BUN (7-17) mg/dL Creatinine (0.52-1.04) mg/dL Est GFR (CKD-EPI)AfAm (>60 ml/min/1.73 sqM) Est GFR (CKD-EPI)NonAf (>60 ml/min/1.73 sqM) Glucose (74-99) mg/dL POC Glucose (mg/dL) 158 H 150 H (70-110) mg/dL POC Glu Forestry Engineer ID Valentin, Toro Toro Valentin Plasma Lactic Acid Louis (0.7-2.0) mmol/L Calcium (8.4-10.2) mg/dL Total Bilirubin (0.2-1.3) mg/dL AST (14-36) U/L ALT (4-34) U/L Alkaline Phosphatase (38-126) U/L Ammonia (<30) umol/L Troponin I (0.000-0.034) ng/mL Total Protein (6.3-8.2) g/dL Albumin (3.5-5.0) g/dL Urine Color Urine Appearance (Clear) Urine pH (5.0-8.0) Ur Specific [place] (1.001-1.035) Urine Protein (Negative) Urine Glucose (UA) (Negative) Urine Ketones (Negative) Urine Blood (Negative) Urine Nitrite (Negative) Urine Bilirubin (Negative) Urine Urobilinogen (<2.0) mg/dL Ur Leukocyte Esterase (Negative) Urine RBC (0-5) /hpf Urine WBC (0-5) /hpf Urine Mucus (None) /hpf Urine Opiates Screen (NotDetected) Ur Oxycodone Screen (NotDetected) Urine Methadone Screen (NotDetected) Ur Barbiturates Screen (NotDetected) U Tricyclic Antidepress (NotDetected) Ur Phencyclidine Scrn (NotDetected) Ur Amphetamines Screen (NotDetected) U Methamphetamines Scrn (NotDetected) U Benzodiazepines Scrn (NotDetected) Urine Cocaine Screen (NotDetected) U Marijuana (THC) Screen (NotDetected) Serum Alcohol mg/dL Acetone, Qual (Negative) Influenza Type A (PCR) (Not Detectd) Influenza Type B (PCR) (Not Detectd) RSV (PCR) (Not Detectd) SARS-CoV-2 (PCR) (Not Detectd) 10/03/23 Range/Units 17:28 WBC (3.8-10.6) k/uL RBC (3.80-5.40) m/uL Hgb (11.4-16.0) gm/dL Hct (34.0-46.0) % MCV (80.0-100.0) fL MCH (25.0-35.0) pg MCHC (31.0-37.0) g/dL RDW (11.5-15.5) % Plt Count (150-450) k/uL MPV Neutrophils % % Lymphocytes % % Monocytes % % Eosinophils % % Basophils % % Neutrophils # (1.3-7.7) k/uL Lymphocytes # (1.0-4.8) k/uL Monocytes # (0-1.0) k/uL Eosinophils # (0-0.7) k/uL Basophils # (0-0.2) k/uL PT (10.0-12.5) sec INR (<1.2) APTT (22.0-30.0) sec VBG pH (7.31-7.41) VBG pCO2 (37-51) mmHg VBG HCO3 (24-28) mmol/L Sodium (137-145) mmol/L Potassium (3.5-5.1) mmol/L Chloride (98-107) mmol/L Carbon Dioxide (22-30) mmol/L Anion Gap mmol/L BUN (7-17) mg/dL Creatinine (0.52-1.04) mg/dL Est GFR (CKD-EPI)AfAm (>60 ml/min/1.73 sqM) Est GFR (CKD-EPI)NonAf (>60 ml/min/1.73 sqM) Glucose (74-99) mg/dL POC Glucose (mg/dL) 156 H (70-110) mg/dL POC Glu Forestry Engineer ID Bonnie Crocker Plasma Lactic Acid Louis (0.7-2.0) mmol/L Calcium (8.4-10.2) mg/dL Total Bilirubin (0.2-1.3) mg/dL AST (14-36) U/L ALT (4-34) U/L Alkaline Phosphatase (38-126) U/L Ammonia (<30) umol/L Troponin I (0.000-0.034) ng/mL Total Protein (6.3-8.2) g/dL Albumin (3.5-5.0) g/dL Urine Color Urine Appearance (Clear) Urine pH (5.0-8.0) Ur Specific [place] (1.001-1.035) Urine Protein (Negative) Urine Glucose (UA) (Negative) Urine Ketones (Negative) Urine Blood (Negative) Urine Nitrite (Negative) Urine Bilirubin (Negative) Urine Urobilinogen (<2.0) mg/dL Ur Leukocyte Esterase (Negative) Urine RBC (0-5) /hpf Urine WBC (0-5) /hpf Urine Mucus (None) /hpf Urine Opiates Screen (NotDetected) Ur Oxycodone Screen (NotDetected) Urine Methadone Screen (NotDetected) Ur Barbiturates Screen (NotDetected) U Tricyclic Antidepress (NotDetected) Ur Phencyclidine Scrn (NotDetected) Ur Amphetamines Screen (NotDetected) U Methamphetamines Scrn (NotDetected) U Benzodiazepines Scrn (NotDetected) Urine Cocaine Screen (NotDetected) U Marijuana (THC) Screen (NotDetected) Serum Alcohol mg/dL Acetone, Qual (Negative) Influenza Type A (PCR) (Not Detectd) Influenza Type B (PCR) (Not Detectd) RSV (PCR) (Not Detectd) SARS-CoV-2 (PCR) (Not Detectd) - EKG Data -: EKG Interpreted by Me EKG Comments: 12-lead Electrocardiogram Interpretation Note EKG was reviewed and interpreted by myself. 12-lead ECG performed at 1608 is interpreted by me as revealing normal sinus rhythm at a rate of 78 beats per minute. [place] is normal. [place] interval is 144 ms, QRS duration is 85 ms, QTc is 416 ms.. There were no ST or T wave abnormalities to suggest myocardial ischemia or injury. R wave progression across the precordium was satisfactory. By my interpretation this EKG is non-diagnostic for acute ischemia. Disposition Clinical Impression: AMS (altered mental status), UTI (urinary tract infection), Hypoglycemia due to insulin Disposition: ADMITTED IP TO THIS HOSP Condition: Stable Time of Disposition: 17:50
[2023-10-03] MEDS ORDERED: DEXTROSE 50% SYRINGE 50 ML IVP PRN ×2 (18:09)
[2023-10-03] MEDS: ONDANSETRON 4 MG/2 ML VIAL IVP STA (18:10)
[2023-10-03] MEDS: SODIUM CHLORIDE 0.9% 1,000 ML IV SCH (18:12)
[2023-10-03 18:17] LABS: Glucose,Whole Blood 190 mg/dL (70-110)
[2023-10-03 19:25] LABS: Glucose,Whole Blood 212 mg/dL (70-110)
[2023-10-03 20:41] LABS: Glucose,Whole Blood 278 mg/dL (70-110)
[2023-10-03] MEDS: ONDANSETRON 4 MG/2 ML VIAL IVP PRN (21:19)
[2023-10-03 23:51] LABS: Glucose,Whole Blood 237 mg/dL (70-110)
[2023-10-04 02:06] LABS: Glucose,Whole Blood 160 mg/dL (70-110)
[2023-10-04 04:34] LABS: Glucose,Whole Blood 107 mg/dL (70-110)
[2023-10-04 05:58] LABS: Glucose,Whole Blood 81 mg/dL (70-110)
[2023-10-04 07:53] LABS: Glucose,Whole Blood 71 mg/dL (70-110)
[2023-10-04] MEDS: INSULIN ASPART (NovoLOG) 100 UNIT/ML VIAL SQ SCH (08:05)
[2023-10-04] MEDS: CEPHALEXIN 500 MG CAP PO SCH (08:06)
[2023-10-04 08:52] LABS: Basophils # (A) 0.03 X 10*3/uL (0.00-0.10); Basophils % (A) 1.1 %; Eosinophils # (A) 0 X 10*3/uL (0.04-0.35); Eosinophils % (A) 0 %; HCT 37.1 % (37.2-46.3); HGB 12.1 g/dL (12.0-15.0); Immature Grans, Automated 0 %; Lymphocytes % (A) 33.2 %; MCH 30.8 pg (27.0-32.0); MCHC 32.6 g/dL (32.0-37.0); MCV 94.4 FL (80.0-97.0); Mean Platelet Volume 11.1 FL (9.5-12.2); Monocytes # (A) 0.51 X 10*3/uL (0.20-1.00); Monocytes % (A) 18.8 %; NRBC Per 100 WBC 0 X 10*3/uL (0.00-0.01); Neutrophils # (A) 1.27 X 10*3/uL (1.80-7.70); Neutrophils % (A) 46.9 %; Platelet Count 180 X 10*3/uL (140-440); RBC 3.93 X 10*6/uL (4.10-5.20); RDW 12.9 % (11.5-14.5); WBC 2.71 X 10*3/uL (4.50-10.00)
[2023-10-04 09:21] LABS: BUN/Creat Ratio 14.18 Ratio (12.00-20.00); Blood Urea Nitrogen 15.6 mg/dL (9.0-27.0); Calcium 9.3 mg/dL (8.7-10.3); Carbon Dioxide 24.9 mmol/L (21.6-31.8); Chloride 109 mmol/L (96-109); Glucose 79 mg/dL (70-110); Potassium 5.8 mmol/L (3.5-5.5); Sodium 142 mmol/L (135-145)
[2023-10-04 10:13] LABS: Glucose,Whole Blood 113 mg/dL (70-110)
[2023-10-04] MEDS: Insulin Aspart (For Pump) 100 UNIT/ML VIAL SQ-PUMP SCH (10:41)
[2023-10-04] MEDS: ESCITALOPRAM 20 MG TAB PO SCH (10:45)
[2023-10-04] MEDS: ACETAMINOPHEN TAB 500 MG TAB PO PRN (10:45)
[2023-10-04] MEDS: ENOXAPARIN 40 MG/0.4 ML SYRINGE SQ SCH (10:46)
[2023-10-04] MEDS: NAPROXEN 250 MG TAB PO SCH (13:04)
[2023-10-04 13:09] LABS: Glucose,Whole Blood 92 mg/dL (70-110)
[2023-10-04 14:22] LABS: Glucose,Whole Blood 135 mg/dL (70-110)
--- NOTE | 2023-10-04 15:01 | P.HPIM ---
History of Present Illness H&P Date: 10/04/23 Chief Complaint: Unresponsive This is a pleasant 57 years old patient with past medical history of diabetes mellitus on insulin pump. She has history of depression and schizophrenia, obstructive sleep apnea, CK D Patient does follow up with her progressive care nurse . Her dial polisher is Dr. Reyna. Lives with her mother. Patient is found with altered consciousness by her mother. EMS was called out. She was unable to follow commands initial blood glucose on the scene was 49. Patient has been just switched over to aspart insulin from NovoLog. She has been finding it to control her sugar difficulty with aspart. She had some NovoLog leftover and she was using that. When she arrived in the ER it was up to 85. Patient had no focal findings. Started waking up with her sugar came up. We do not have endocrinology service in the hospital. Review of systems: GEN.: Tired EYES: Chronic eye pain. Some photophobia. HEENT: None NECK: None RESPIRATORY: None CARDIOVASCULAR: None GASTROINTESTINAL: None GENITOURINARY: None MUSCULOSKELETAL: None LYMPHATICS: None HEMATOLOGICAL: None PSYCHIATRY: None NEUROLOGICAL: No focal Social history: No smoking or alcohol. Lives with her mother Physical examination: VITAL SIGNS: 98.4, 86, 17, 126/64, 97% room air upon presentation GENERAL: BMI BMI 30.9, up in a recliner awake tired EYES: Pupils equal. Conjunctiva normal. HEENT: External appearance of nose and ears normal, oral cavity grossly normal. NECK: JVD not raised; masses not palpable. HEART: First and second heart sounds are normal; no edema. LUNGS: Respiratory rate normal; clear to auscultation. ABDOMEN: Soft, nontender, liver spleen not palpable, no masses palpable. PSYCH: Alert and oriented x3; mood and affect tired. MUSCULOSKELETAL:No Clubbing/cyanosis;muscles-grossly intact NEUROLOGICAL: Cranial nerves grossly intact; no facial asymmetry, power and sensation grossly intact. LYMPHATICS: No lymph nodes palpable in the axilla and neck INVESTIGATIONS, reviewed in the clinical context: October 04, 2023: White count 2.7 hemoglobin 12.1 platelets 118 sodium 142 creatinine 1.1. Potassium hemolyzed HbA1c 7.6 EKG tracing personally reviewed by me-normal stress rhythm. Nonspecific T wave changes. Chest x-ray film personally reviewed by me-unremarkable CT scan brain without contrast: Stable remote lacunar infarct in the left basal ganglia CT angio head and neck: Unremarkable Assessment and plan: -Metabolic encephalopathy, secondary to hypoglycemia, corrected Patient's Accu-Chek was found to be 46 on the scene. -Insulin pump,, diabetes mellitus type 2 No endocrinology service nor any insulin pump trained nurse available in the hospital. Spoke to nurse Mattson. To contact patient's progressive care nurse and obtain instructions the phone to cut back on the insulin. Patient to be watched for at least 24 hours. -depression and schizophrenia, On Haldol every 14 days, next dose due on March 10. On Lexapro -Chronic kidney disease stage II likely diabetic nephropathy Follows with Dr. Reyna -obstructive sleep apnea CPAP -Chronic eye discomfort and slight photophobia. Present for a long time. Use sunglasses at baseline. Intermittently. Care was discussed length with the patient and the nurse Twila. Contact patient's progressive care nurse . Diabetic diet. Past Medical History Past Medical History: Diabetes Mellitus Additional Past Medical History / Comment(s): Chronic kidney disease per patient History of Any Multi-Drug Resistant Organisms: None Reported Past Surgical History: Hysterectomy, Orthopedic Surgery, Tonsillectomy Additional Past Surgical History / Comment(s): Right ankle repair Past Anesthesia/Blood Transfusion Reactions: No Reported Reaction Past Psychological History: Depression, Schizophrenia Smoking Status: Never smoker Past Alcohol Use History: None Reported Past Drug Use History: None Reported Medications and Allergies Home Medications Medication Instructions Recorded Confirmed Type Insulin Aspart (For Pump) [NovoLOG 0.01 unit SQ-PUMP CONTINUOUS 05/24/17 10/03/23 History (For Pump)] Escitalopram Oxalate [Lexapro] 20 mg PO DAILY 10/27/21 10/03/23 History Haloperidol Decanoate [Haldol D] 150 mg IM Q14D 10/27/21 10/03/23 History Glucagon [Gvoke Pfs 1-Pack Syringe] 1 mg SQ ONCE PRN 01/27/23 10/03/23 History Allergies Allergy/AdvReac Type Severity Reaction Status Date / Time divalproex sodium AdvReac unable to Verified 03/08/23 08:08 [From Depakote] walk/talk Milk Containing Products AdvReac Nausea & Verified 03/08/23 08:08 (Dairy) Vomiting & [Dairy] Diarrhea paliperidone [From Invega] AdvReac Confusion Verified 03/08/23 08:08 risperidone [From Risperdal] AdvReac neutropenia Verified 03/08/23 08:08 cortisol AdvReac Unknown Uncoded 03/08/23 08:08 Physical Exam Vitals: Vital Signs Temp Pulse Pulse Resp BP BP Pulse Ox 10/04/23 07:57 98.3 F 54 L 16 101/62 92 L 10/04/23 02:00 98.3 F 78 16 103/61 96 10/03/23 20:08 89 16 10/03/23 20:00 98.4 F 89 16 112/75 94 L 10/03/23 19:53 68 16 104/53 95 10/03/23 17:34 80 18 126/64 97 10/03/23 16:00 86 17 145/110 97 Intake and Output 10/03/23 10/04/23 10/04/23 22:59 06:59 14:59 Intake Total 950 240 Balance 950 240 Intake: Intake, IV Titration 750 Amount Sodium Chloride 0.9% 1, 750 000 ml @ 75 mls/hr IV . [id number] [facility] Rx#:[id number] Oral 200 240 Other: Voiding Method Toilet Toilet # Voids 1 Weight 81.647 kg Results CBC & Chem 7: 10/04/23 06:01 10/04/23 06:01 Labs: Abnormal Lab Results - Last 24 Hours (Table) 10/03/23 10/03/23 10/03/23 Range/Units 16:05 16:05 16:05 WBC 3.5 L (3.8-10.6) k/uL RBC (4.10-5.20) X 10*6/uL Hct (37.2-46.3) % Neutrophils # (1.80-7.70) X 10*3/uL Lymphocytes # 0.9 L (1.0-4.8) k/uL Eosinophils # (0.04-0.35) X 10*3/uL Potassium (3.5-5.5) mmol/L Chloride 108 H (98-107) mmol/L BUN 21 H (7-17) mg/dL Est GFR (CKD-EPI) (>=60) POC Glucose (mg/dL) (70-110) mg/dL Hemoglobin A1c (<=6.0) % Urine Glucose (UA) Trace H (Negative) Ur Leukocyte Esterase Large H (Negative) Urine RBC 24 H (0-5) /hpf Urine WBC 9 H (0-5) /hpf Urine Mucus Rare H (None) /hpf 10/03/23 10/03/23 10/03/23 Range/Units 16:13 16:53 17:28 WBC (3.8-10.6) k/uL RBC (4.10-5.20) X 10*6/uL Hct (37.2-46.3) % Neutrophils # (1.80-7.70) X 10*3/uL Lymphocytes # (1.0-4.8) k/uL Eosinophils # (0.04-0.35) X 10*3/uL Potassium (3.5-5.5) mmol/L Chloride (98-107) mmol/L BUN (7-17) mg/dL Est GFR (CKD-EPI) (>=60) POC Glucose (mg/dL) 158 H 150 H 156 H (70-110) mg/dL Hemoglobin A1c (<=6.0) % Urine Glucose (UA) (Negative) Ur Leukocyte Esterase (Negative) Urine RBC (0-5) /hpf Urine WBC (0-5) /hpf Urine Mucus (None) /hpf 10/03/23 10/03/23 10/03/23 Range/Units 18:16 19:23 20:40 WBC (3.8-10.6) k/uL RBC (4.10-5.20) X 10*6/uL Hct (37.2-46.3) % Neutrophils # (1.80-7.70) X 10*3/uL Lymphocytes # (1.0-4.8) k/uL Eosinophils # (0.04-0.35) X 10*3/uL Potassium (3.5-5.5) mmol/L Chloride (98-107) mmol/L BUN (7-17) mg/dL Est GFR (CKD-EPI) (>=60) POC Glucose (mg/dL) 190 H 212 H 278 H (70-110) mg/dL Hemoglobin A1c (<=6.0) % Urine Glucose (UA) (Negative) Ur Leukocyte Esterase (Negative) Urine RBC (0-5) /hpf Urine WBC (0-5) /hpf Urine Mucus (None) /hpf 10/03/23 10/04/23 10/04/23 Range/Units 23:49 02:04 06:01 WBC (3.8-10.6) k/uL RBC (4.10-5.20) X 10*6/uL Hct (37.2-46.3) % Neutrophils # (1.80-7.70) X 10*3/uL Lymphocytes # (1.0-4.8) k/uL Eosinophils # (0.04-0.35) X 10*3/uL Potassium (3.5-5.5) mmol/L Chloride (98-107) mmol/L BUN (7-17) mg/dL Est GFR (CKD-EPI) (>=60) POC Glucose (mg/dL) 237 H 160 H (70-110) mg/dL Hemoglobin A1c 7.6 H (<=6.0) % Urine Glucose (UA) (Negative) Ur Leukocyte Esterase (Negative) Urine RBC (0-5) /hpf Urine WBC (0-5) /hpf Urine Mucus (None) /hpf 10/04/23 10/04/23 10/04/23 Range/Units 06:01 06:01 10:11 WBC 2.71 L (3.8-10.6) k/uL RBC 3.93 L (4.10-5.20) X 10*6/uL Hct 37.1 L (37.2-46.3) % Neutrophils # 1.27 L (1.80-7.70) X 10*3/uL Lymphocytes # (1.0-4.8) k/uL Eosinophils # 0 L (0.04-0.35) X 10*3/uL Potassium 5.8 H (3.5-5.5) mmol/L Chloride (98-107) mmol/L BUN (7-17) mg/dL Est GFR (CKD-EPI) 58 L (>=60) POC Glucose (mg/dL) 113 H (70-110) mg/dL Hemoglobin A1c (<=6.0) % Urine Glucose (UA) (Negative) Ur Leukocyte Esterase (Negative) Urine RBC (0-5) /hpf Urine WBC (0-5) /hpf Urine Mucus (None) /hpf
[2023-10-04 16:06] LABS: Glucose,Whole Blood 216 mg/dL (70-110)
[2023-10-04 18:08] LABS: Glucose,Whole Blood 202 mg/dL (70-110)
[2023-10-04 20:48] LABS: Glucose,Whole Blood 181 mg/dL (70-110)
[2023-10-04 21:57] LABS: Glucose,Whole Blood 207 mg/dL (70-110)
[2023-10-05 00:24] LABS: Glucose,Whole Blood 190 mg/dL (70-110)
[2023-10-05 02:18] LABS: Glucose,Whole Blood 236 mg/dL (70-110)
[2023-10-05 04:16] LABS: Glucose,Whole Blood 216 mg/dL (70-110)
[2023-10-05 05:52] LABS: Glucose,Whole Blood 202 mg/dL (70-110)
[2023-10-05 07:57] LABS: Glucose,Whole Blood 149 mg/dL (70-110)
[2023-10-05 09:59] LABS: Glucose,Whole Blood 155 mg/dL (70-110)
[2023-10-05 10:07] VITALS: TEMP 98.5
[2023-10-05 12:12] LABS: Glucose,Whole Blood 148 mg/dL (70-110)
[2023-10-05 12:34] VITALS: BP 146/73; PULSE 61; RESP 18
--- NOTE | 2023-10-05 13:46 | CT ---
EXAMINATION TYPE: CT lumbar spine wo con CT DLP: 659.4 mGycm, Automated exposure control for dose reduction was used. DATE OF EXAM: 10/05/2023 1:29 PM COMPARISON: None. CLINICAL INDICATION:Female, 57 years old with history of lower back pain with radiating; PHH, Low dalia k pain. TECHNIQUE: Multiple axial images were obtained from the midportion of T11 through the sacroiliac brittany nts. Soft tissue and bone windows in coronal and sagittal planes were obtained and reviewed. Contrast used: mL of , (None, if empty). Oral contrast used: (None, if empty). FINDINGS: Increase lordotic alignment of the lumbar spine. There is multilevel degeneration with osteophyte for mation facet arthropathy and disc space narrowing. Pseudoarthrosis of the lower lumbar spinous proces ses. No evidence of fracture. No significant spinal canal or neural foraminal stenosis identified. The remainder of the visualized abdomen and thorax are unremarkable. Right renal cyst. IMPRESSION: 1. No evidence for spinal fracture. 2. Moderate degeneration changes throughout the spine without evidence for significant spinal canal o r neural foraminal stenosis. 3. Findings suggestive of Baastrup's disease.
[2023-10-05 14:19] LABS: Glucose,Whole Blood 135 mg/dL (70-110)
--- NOTE | 2023-10-05 16:32 | P.DS ---
Providers Date of admission: 10/03/23 18:07 Expected date of discharge: 10/05/23 Attending physician: Nelson Escalante Primary care physician: [facility] Course: Chief Complaint: Unresponsive This is a pleasant 57 years old patient with past medical history of diabetes mellitus on insulin pump. She has history of depression and schizophrenia, obstructive sleep apnea, CK D Patient does follow up with her reinforced concrete inspector . Her library sales consultant is Dr. Reyna. Lives with her mother. Patient is found with altered consciousness by her mother. EMS was called out. She was unable to follow commands initial blood glucose on the scene was 49. Patient has been just switched over to aspart insulin from NovoLog. She has been finding it to control her sugar difficulty with aspart. She had some N ovoLog leftover and she was using that. When she arrived in the ER it was up to 85. Patient had no focal findings. Started waking up with her sugar came up. We do not have endocrinology service in the hospital. October 05: Yesterday nurse contacted patient's reinforced concrete inspector Dr. Price. Patient insulin pump was adjusted. Patient tolerating diet.'s Accu-Cheks have been well-controlled. For chronic low back pain with radiation. A CT scan was ordered this morning. Patient follow-up with Dr. Kumar from orthopedic spine. Social history: No smoking or alcohol. Lives with her mother Physical examination: VITAL SIGNS: 98.5, 61, 18, 146/73, 96% room air GENERAL: Reclining in bed, comfortable EYES: Pupils equal. Conjunctiva normal. HEENT: External appearance of nose and ears normal, oral cavity grossly normal. NECK: JVD not raised; masses not palpable. HEART: First and second heart sounds are normal; no edema. LUNGS: Respiratory rate normal; clear to auscultation. ABDOMEN: Soft, nontender, liver spleen not palpable, no masses palpable. PSYCH: Alert and oriented x3; mood and affect tired. MUSCULOSKELETAL:No Clubbing/cyanosis;muscles-grossly intact INVESTIGATIONS, reviewed in the clinical context: CT lumbar spine without contrast: Moderate DJD changes throughout the spine. Accu-Cheks today: 149, 155, 148, 135 October 04, 2023: White count 2.7 hemoglobin 12.1 platelets 118 sodium 142 creatinine 1.1. Potassium hemolyzed HbA1c 7.6 EKG tracing personally reviewed by me-normal stress rhythm. Nonspecific T wave changes. Chest x-ray film personally reviewed by me-unremarkable CT scan brain without contrast: Stable remote lacunar infarct in the left basal ganglia CT angio head and neck: Unremarkable Assessment and plan: -Metabolic encephalopathy, secondary to hypoglycemia, corrected Patient's Accu-Chek was found to be 46 on the scene. -Insulin pump,, diabetes mellitus type 2 No endocrinology service nor any insulin pump trained nurse available in the hospital. Patient's reinforced concrete inspector was contacted. Pump was adjusted over the phone. -depression and schizophrenia, On Haldol every 14 days, next dose due on March 10. On Lexapro -Chronic low back pain with bilateral radiculopathy. From DJD changes. CT lumbar spine: DJD changes. Follow-up with Dr. Kumar outpatient. -Chronic kidney disease stage II likely diabetic nephropathy Follows with Dr. Reyna -obstructive sleep apnea CPAP -Chronic eye discomfort and slight photophobia. Present for a long time. Use sunglasses at baseline. Intermittently. Disposition: Home Past Medical History Past Medical History: Diabetes Mellitus Additional Past Medical History / Comment(s): Chronic kidney disease per patient History of Any Multi-Drug Resistant Organisms: None Reported Past Surgical History: Hysterectomy, Orthopedic Surgery, Tonsillectomy Additional Past Surgical History / Comment(s): Right ankle repair Past Anesthesia/Blood Transfusion Reactions: No Reported Reaction Past Psychological History: Depression, Schizophrenia Smoking Status: Never smoker Past Alcohol Use History: None Reported Past Drug Use History: None Reported Plan - Discharge Summary Discharge Rx Participant: No New Discharge Prescriptions: New Cyclobenzaprine [Flexeril] 5 mg PO TID PRN #30 tablet PRN Reason: Spasms Continue Insulin Aspart (For Pump) [NovoLOG (For Pump)] 0.01 unit SQ-PUMP CONTINUOUS Haloperidol Decanoate [Haldol D] 150 mg IM Q14D Glucagon [Gvoke Pfs 1-Pack Syringe] 1 mg SQ ONCE PRN PRN Reason: Severe hypoglycemia Escitalopram Oxalate [Lexapro] 20 mg PO DAILY Discharge Medication List Insulin Aspart (For Pump) [NovoLOG (For Pump)] 0.01 unit SQ-PUMP CONTINUOUS 05/24/17 [History] Escitalopram Oxalate [Lexapro] 20 mg PO DAILY 10/27/21 [History] Haloperidol Decanoate [Haldol D] 150 mg IM Q14D 10/27/21 [History] Glucagon [Gvoke Pfs 1-Pack Syringe] 1 mg SQ ONCE PRN 01/27/23 [History] Cyclobenzaprine [Flexeril] 5 mg PO TID PRN #30 tablet 10/05/23 [Rx] Follow up Appointment(s)/Referral(s): Andrea Casanova DO [Primary Care Provider] - 10/15/23 11:20 am Marivel Kumar DO [Doctor of Osteopathic Medicine] - 1 Week (Must be referred o roldan by PCP. Have PCP's office send over records and referral.) Patient Instructions/Handouts: Cyclobenzaprine (By mouth) Discharge Disposition: HOME SELF-CARE
== END 2023-10-05 14:32 | disposition home or self-care (01) ==
LOC: EC 15:55 → 5NMEDONC 18:07 → UNDODISOB 10-04 14:03
PROVIDERS: ADMIT Hospitalist; ATTEND Hospitalist
DX: E11.649 Type 2 diabetes mellitus with hypoglycemia without coma (principal); G93.41 Metabolic encephalopathy; T38.3X5A Adverse effect of insulin and oral hypoglycemic [antidiabetic] drugs, initial encounter; E11.22 Type 2 diabetes mellitus with diabetic chronic kidney disease; N18.2 Chronic kidney disease, stage 2 (mild); N39.0 Urinary tract infection, site not specified; G47.33 Obstructive sleep apnea (adult) (pediatric); G89.29 Other chronic pain; M47.26 Other spondylosis with radiculopathy, lumbar region; H57.10 Ocular pain, unspecified eye; F20.9 Schizophrenia, unspecified; F32.A Depression, unspecified; Z79.4 Long term (current) use of insulin; Z79.899 Other long term (current) drug therapy; Z88.8 Allergy status to other drugs, medicaments and biological substances; Z91.011 Allergy to milk products; Z96.41 Presence of insulin pump (external) (internal); Z11.52 Encounter for screening for COVID-19; Z11.59 Encounter for screening for other viral diseases
CPT/HCPCS: 96376 ×3; 96361 ×3; 96372 ×2; 96365; 96375; 99285; 36415; 80053; 80048; 82140; 82803; 82009; 83605; 84484; 85025 ×2; 85610; 85730; 81001; 80306; 87086; 87077; 87186; 83036; 87636; 71046; 72131; 70496; 70450; 70498; G0378 ×3; G0480; J1200; J2405 ×3; J0696; J1650 ×2; Q9967; 80320; 96374

== ENCOUNTER 2023-10-10 03:09 | Emergency (ER) | payer OTHER ==
[2023-10-10 03:21] LABS: Glucose,Whole Blood 83 mg/dL (70-110)
[2023-10-10 03:34] VITALS: TEMP 98.2
[2023-10-10 03:48] LABS: ALT 17 U/L (4-34); AST 27 U/L (14-36); African American GFR (CKD) 75 (>60 ml/min/1.73 sqM); Albumin 4.1 g/dL (3.5-5.0); Alkaline Phosphatase 66 U/L (38-126); Anion Gap 4 mmol/L; Blood Urea Nitrogen 18 mg/dL (7-17); Calcium 9.5 mg/dL (8.4-10.2); Carbon Dioxide 26 mmol/L (22-30); Chloride 108 mmol/L (98-107); Glucose 84 mg/dL (74-99); Non-African American GFR(CKD) 65 (>60 ml/min/1.73 sqM); Potassium 4.3 mmol/L (3.5-5.1); Sodium 138 mmol/L (137-145); Total Bilirubin 0.4 mg/dL (0.2-1.3); Total Protein 6.8 g/dL (6.3-8.2)
[2023-10-10 04:04] LABS: HCT 43.2 % (34.0-46.0); HGB 14.5 gm/dL (11.4-16.0); MCH 31.1 pg (25.0-35.0); MCHC 33.6 g/dL (31.0-37.0); MCV 92.6 fL (80.0-100.0); Mean Platelet Volume 8.4; Platelet Count 191 k/uL (150-450); RBC 4.67 m/uL (3.80-5.40); RDW 12.7 % (11.5-15.5); WBC 2.9 k/uL (3.8-10.6)
[2023-10-10 04:26] LABS: Glucose,Whole Blood 242 mg/dL (70-110)
[2023-10-10 04:44] LABS: Lymphocytes # (M) 0.81 k/uL (1.0-4.8); Monocytes # (M) 0.32 k/uL (0-1.0); Neutrophils # (M) 1.77 k/uL (1.3-7.7); Neutrophils % (M) 61 %; Nucleated Red Blood Cells 0 /100 WBC (0-0); Total Cells Counted 100
[2023-10-10 05:32] VITALS: RESP 16
--- NOTE | 2023-10-10 06:03 | ED ---
General Adult HPI - General Chief complaint: Recheck/Abnormal Lab/Rx Stated complaint: low blood sugar Time Seen by Provider: 10/10/23 03:12 Source: patient, EMS Mode of arrival: EMS Limitations: no limitations - History of Present Illness Initial comments: This patient is 58-year-old woman with history of diabetes who was brought to have evaluation for suspected hypoglycemia. The patient's mother had called as the patient was not acting like her usual self. The patient herself is denying complaints. The EMS personnel had arrived found a blood sugar of 58 on scene and administered glucose and the patient then was more like her usual self. -: minutes(s) Severity scale (1-10): 0 Consistency: now resolved Improves with: none Worsens with: none Associated Symptoms: confusion Treatments Prior to Arrival: none - Related Data Home Medications Medication Instructions Recorded Confirmed Insulin Aspart (For Pump) [NovoLOG 0.01 unit SQ-PUMP CONTINUOUS 05/24/17 10/03/23 (For Pump)] Escitalopram Oxalate [Lexapro] 20 mg PO DAILY 10/27/21 10/03/23 Haloperidol Decanoate [Haldol D] 150 mg IM Q14D 10/27/21 10/03/23 Glucagon [Gvoke Pfs 1-Pack Syringe] 1 mg SQ ONCE PRN 01/27/23 10/03/23 Previous Rx's Medication Instructions Recorded Cyclobenzaprine [Flexeril] 5 mg PO TID PRN #30 tablet 10/05/23 Allergies Allergy/AdvReac Type Severity Reaction Status Date / Time divalproex sodium AdvReac unable to Verified 10/21/23 12:09 [From Depakote] walk/talk Milk Containing Products AdvReac Nausea & Verified 10/21/23 12:09 (Dairy) Vomiting & [Dairy] Diarrhea paliperidone [From Invega] AdvReac Confusion Verified 10/21/23 12:09 risperidone [From Risperdal] AdvReac neutropenia Verified 10/21/23 12:09 cortisol AdvReac Unknown Uncoded 03/08/23 08:08 Review of Systems ROS Statement: Those systems with pertinent positive or pertinent negative responses have been documented in the HPI. ROS Other: All systems not noted in ROS Statement are negative. Constitutional: Denies: fever, weakness Eyes: Denies: vision change Respiratory: Denies: cough, dyspnea Cardiovascular: Denies: chest pain, syncope Gastrointestinal: Denies: abdominal pain, vomiting, diarrhea Genitourinary: Denies: dysuria, hematuria Musculoskeletal: Denies: back pain Skin: Denies: rash Neurological: Reports: confusion. Denies: headache, weakness Past Medical History Past Medical History: Diabetes Mellitus Additional Past Medical History / Comment(s): Chronic kidney disease per patient History of Any Multi-Drug Resistant Organisms: None Reported Past Surgical History: Hysterectomy, Orthopedic Surgery, Tonsillectomy Additional Past Surgical History / Comment(s): Right ankle repair Past Anesthesia/Blood Transfusion Reactions: No Reported Reaction Past Psychological History: Depression, Schizophrenia Smoking Status: Never smoker Past Alcohol Use History: None Reported Past Drug Use History: None Reported General Exam Limitations: no limitations General appearance: alert, in no apparent distress Head exam: Present: atraumatic, normocephalic Eye exam: Present: normal appearance. Absent: scleral icterus, conjunctival injection Neck exam: Present: normal inspection Respiratory exam: Present: normal lung sounds bilaterally. Absent: respiratory distress, wheezes, rales, rhonchi, stridor Cardiovascular Exam: Present: regular rate, normal rhythm, normal heart sounds. Absent: systolic murmur, diastolic murmur, rubs, gallop GI/Abdominal exam: Present: soft. Absent: distended, tenderness, guarding, rebound, rigid, mass Extremities exam: Present: normal inspection, normal capillary refill. Absent: pedal edema, calf tenderness Back exam: Present: normal inspection. Absent: CVA tenderness (R), CVA tenderness (L) Neurological exam: Present: alert, oriented X3, CN II-XII intact. Absent: motor sensory deficit Skin exam: Present: warm, dry, intact, normal color. Absent: rash Course Vital Signs 10/10/23 10/10/23 10/10/23 03:11 04:00 05:00 Temperature 98.2 F Pulse Rate 73 65 63 Respiratory 16 14 12 Rate Blood Pressure 129/61 125/66 119/58 O2 Sat by Pulse 97 98 97 Oximetry 10/10/23 10/10/23 05:18 06:16 Temperature Pulse Rate 63 68 Respiratory 16 16 Rate Blood Pressure 119/59 117/60 O2 Sat by Pulse 96 97 Oximetry Medical Decision Making - Medical Decision Making Patient is 58-year-old woman here to have evaluation after alterations in her usual mental status and found to have hypoglycemia. Patient is observed here with stable glucose is feeling better and would like to go. Discussed appropriate further care and follow-up as well as return parameters Was pt. sent in by a medical professional or institution (TUSHAR Marks, WORKFORCE SPECIALIST, urgent care, hospital, or long term...) When possible be specific @ -[No] Did you speak to anyone other than the patient for history (EMS, parent, family, police, friend...)? What history was obtained from this source @ -[MS contribute history Did you review nursing and triage notes (agree or disagree)? Why? @ -[I reviewed and agree with nursing and triage notes] Were old charts reviewed (outside hosp., previous admission, EMS record, old EKG, old radiological studies, urgent care reports/EKG's, long term records)? Report findings @ -[No old charts were reviewed] Differential Diagnosis (chest pain, altered mental status, abdominal pain women, abdominal pain men, vaginal bleeding, weakness, fever, dyspnea, syncope, headache, dizziness, GI bleed, back pain, seizure, CVA, palpatations, mental health, musculoskeletal)? @ -[Differential Altered Mental Status: Hypoglycemia, DKA, hypercapnia, ETOH, overdose, CO poisoning, trauma, myxedema coma, HTN encephalopathy, infection, encephalitis, psychosis, intercranial hemorrhage, hepatic encephalopathy, meningitis, CVA, this is not meant to be an all-inclusive list EKG interpreted by me (3pts min.). @ -[As above] X-rays interpreted by me (1pt min.). @ -[None done] CT interpreted by me (1pt min.). @ -[None done] U/S interpreted by me (1pt. min.). @ -[None done] What testing was considered but not performed or refused? (CT, X-rays, U/S, labs)? Why? @ -[None] What meds were considered but not given or refused? Why? @ -[None] Did you discuss the management of the patient with other professionals (professionals i.e. TUSHAR Marks, WORKFORCE SPECIALIST, lab, RT, psych nurse, social services assistant, air traffic instructor, teacher, sergeant of officers, outsole caser)? Give summary @ -[No] Was smoking cessation discussed for >3mins.? @ -[No] Was critical care preformed (if so, how long)? @ -[No] Were there social determinants of health that impacted care today? How? (Homelessness, low income, unemployed, alcoholism, drug addiction, transportation, low edu. Level, literacy, decrease access to med. care, alf, rehab)? @ -[No] Was there de-escalation of care discussed even if they declined (Discuss DNR or withdrawal of care, Hospice)? DNR status @ -[No] What co-morbidities impacted this encounter? (DM, HTN, Smoking, COPD, CAD, Cancer, CVA, ARF, Chemo, Hep., AIDS, mental health diagnosis, sleep apnea, morbid obesity)? @ -[None] Was patient admitted / discharged? Hospital course, mention meds given and route, prescriptions, significant lab abnormalities, going to OR and other pertinent info. @ -[Above Undiagnosed new problem with uncertain prognosis? @ -[No] Drug Therapy requiring intensive monitoring for toxicity (Heparin, Nitro, Insulin, Cardizem)? @ -[No] Were any procedures done? @ -[No] Diagnosis/symptom? @ -[Acute hypoglycemia Altered mental status, resolved Acute, or Chronic, or Acute on Chronic? @ -[Acute Uncomplicated (without systemic symptoms) or Complicated (systemic symptoms)? @ -[Complicated by mental status change Side effects of treatment? @ -[No] Exacerbation, Progression, or Severe Exacerbation? @ -[No] Poses a threat to life or bodily function? How? (Chest pain, [place], [place], pneumonia, PE, COPD, DKA, ARF, appy, cholecystitis, CVA, Diverticulitis, Homicidal, Suicidal, threat to staff... and all critical care pts) @ -[No] - Lab Data Result diagrams: 10/10/23 03:31 10/10/23 03:31 Lab Results 10/10/23 10/10/23 10/10/23 Range/Units 03:18 03:31 03:31 WBC 2.9 L (3.8-10.6) k/uL RBC 4.67 (3.80-5.40) m/uL Hgb 14.5 (11.4-16.0) gm/dL Hct 43.2 (34.0-46.0) % MCV 92.6 (80.0-100.0) fL MCH 31.1 (25.0-35.0) pg MCHC 33.6 (31.0-37.0) g/dL RDW 12.7 (11.5-15.5) % Plt Count 191 (150-450) k/uL MPV 8.4 Neutrophils % (Manual) 61 % Lymphocytes % (Manual) 28 % Monocytes % (Manual) 11 % Neutrophils # (Manual) 1.77 (1.3-7.7) k/uL Lymphocytes # (Manual) 0.81 L (1.0-4.8) k/uL Monocytes # (Manual) 0.32 (0-1.0) k/uL Nucleated RBCs 0 (0-0) /100 WBC Manual Slide Review Performed Sodium 138 (137-145) mmol/L Potassium 4.3 (3.5-5.1) mmol/L Chloride 108 H (98-107) mmol/L Carbon Dioxide 26 (22-30) mmol/L Anion Gap 4 mmol/L BUN 18 H (7-17) mg/dL Creatinine 0.97 (0.52-1.04) mg/dL Est GFR (CKD-EPI)AfAm 75 (>60 ml/min/1.73 sqM) Est GFR (CKD-EPI)NonAf 65 (>60 ml/min/1.73 sqM) Glucose 84 (74-99) mg/dL POC Glucose (mg/dL) 83 (70-110) mg/dL POC Glu Associate Spa Director ID Ashanti Zamarripa Calcium 9.5 (8.4-10.2) mg/dL Total Bilirubin 0.4 (0.2-1.3) mg/dL AST 27 (14-36) U/L ALT 17 (4-34) U/L Alkaline Phosphatase 66 (38-126) U/L Total Protein 6.8 (6.3-8.2) g/dL Albumin 4.1 (3.5-5.0) g/dL Acetone, Qual Negative (Negative) 10/10/23 10/10/23 Range/Units 04:24 06:01 WBC (3.8-10.6) k/uL RBC (3.80-5.40) m/uL Hgb (11.4-16.0) gm/dL Hct (34.0-46.0) % MCV (80.0-100.0) fL MCH (25.0-35.0) pg MCHC (31.0-37.0) g/dL RDW (11.5-15.5) % Plt Count (150-450) k/uL MPV Neutrophils % (Manual) % Lymphocytes % (Manual) % Monocytes % (Manual) % Neutrophils # (Manual) (1.3-7.7) k/uL Lymphocytes # (Manual) (1.0-4.8) k/uL Monocytes # (Manual) (0-1.0) k/uL Nucleated RBCs (0-0) /100 WBC Manual Slide Review Sodium (137-145) mmol/L Potassium (3.5-5.1) mmol/L Chloride (98-107) mmol/L Carbon Dioxide (22-30) mmol/L Anion Gap mmol/L BUN (7-17) mg/dL Creatinine (0.52-1.04) mg/dL Est GFR (CKD-EPI)AfAm (>60 ml/min/1.73 sqM) Est GFR (CKD-EPI)NonAf (>60 ml/min/1.73 sqM) Glucose (74-99) mg/dL POC Glucose (mg/dL) 242 H 323 H (70-110) mg/dL POC Glu Associate Spa Director ID Hoyos, Luis Angelanastasia NormanHoyos, Luis Angel Calcium (8.4-10.2) mg/dL Total Bilirubin (0.2-1.3) mg/dL AST (14-36) U/L ALT (4-34) U/L Alkaline Phosphatase (38-126) U/L Total Protein (6.3-8.2) g/dL Albumin (3.5-5.0) g/dL Acetone, Qual (Negative) Disposition Clinical Impression: Hypoglycemia due to insulin Disposition: HOME SELF-CARE Condition: Good Instructions (If sedation given, give patient instructions): Hypoglycemia in a Person with Diabetes (ED) Is patient prescribed a controlled substance at d/c from ED?: No Referrals: Andrea Casanova DO [Primary Care Provider] - 1-2 days
[2023-10-10 06:04] LABS: Glucose,Whole Blood 323 mg/dL (70-110)
[2023-10-10 06:31] VITALS: BP 117/60; PULSE 68
== END 2023-10-10 06:17 | disposition home or self-care (01) ==
LOC: EC 03:09
DX: E11.649 Type 2 diabetes mellitus with hypoglycemia without coma (principal); E11.22 Type 2 diabetes mellitus with diabetic chronic kidney disease; F32.A Depression, unspecified; Z79.4 Long term (current) use of insulin; Z79.899 Other long term (current) drug therapy; Z91.011 Allergy to milk products; Z88.8 Allergy status to other drugs, medicaments and biological substances
CPT/HCPCS: 36415; 80053; 82009; 85025; 99284

== ENCOUNTER 2023-10-21 12:02 | Emergency (ER) | payer OTHER ==
[2023-10-21 12:12] VITALS: RESP 18; TEMP 98.2
[2023-10-21] MEDS: KETOROLAC 15 MG/ML 1 ML VIAL IM STA (12:59)
--- NOTE | 2023-10-21 13:00 | ED ---
General Adult HPI - General Chief complaint: Fall Stated complaint: fall Time Seen by Provider: 10/21/23 12:10 Source: patient, RN notes reviewed, old records reviewed Mode of arrival: wheelchair - History of Present Illness Initial comments: This is a 58-year-old female who presents to the emergency department stating that 2 days ago she fell because her sugar was low and she twisted her ankle and now she has ankle pain and leg pain. Patient denies any foot pain. But it is very ecchymotic on the lateral aspect of her foot. Patient denies any knee pain or hip pain. Patient denies any other injury. - Related Data Home Medications Medication Instructions Recorded Confirmed Insulin Aspart (For Pump) [NovoLOG 0.01 unit SQ-PUMP CONTINUOUS 05/24/17 10/03/23 (For Pump)] Escitalopram Oxalate [Lexapro] 20 mg PO DAILY 10/27/21 10/03/23 Haloperidol Decanoate [Haldol D] 150 mg IM Q14D 10/27/21 10/03/23 Glucagon [Gvoke Pfs 1-Pack Syringe] 1 mg SQ ONCE PRN 01/27/23 10/03/23 Previous Rx's Medication Instructions Recorded Cyclobenzaprine [Flexeril] 5 mg PO TID PRN #30 tablet 10/05/23 Allergies Allergy/AdvReac Type Severity Reaction Status Date / Time divalproex sodium AdvReac unable to Verified 10/21/23 12:09 [From Depakote] walk/talk Milk Containing Products AdvReac Nausea & Verified 10/21/23 12:09 (Dairy) Vomiting & [Dairy] Diarrhea paliperidone [From Invega] AdvReac Confusion Verified 10/21/23 12:09 risperidone [From Risperdal] AdvReac neutropenia Verified 10/21/23 12:09 cortisol AdvReac Unknown Uncoded 03/08/23 08:08 Review of Systems ROS Statement: Those systems with pertinent positive or pertinent negative responses have been documented in the HPI. ROS Other: All systems not noted in ROS Statement are negative. Past Medical History Past Medical History: Diabetes Mellitus Additional Past Medical History / Comment(s): Chronic kidney disease per patient History of Any Multi-Drug Resistant Organisms: None Reported Past Surgical History: Hysterectomy, Orthopedic Surgery, Tonsillectomy Additional Past Surgical History / Comment(s): Right ankle repair Past Anesthesia/Blood Transfusion Reactions: No Reported Reaction Past Psychological History: Depression, Schizophrenia Smoking Status: Never smoker Past Alcohol Use History: None Reported Past Drug Use History: None Reported General Exam - General Exam Comments Initial Comments: GENERAL Patient is well-developed and well-nourished. Patient is in mild distress. EYES Patient's pupils are equal and round. Extraocular motion is intact SKIN Unremarkable NEURO The patient is alert and oriented -3 PYSCH Patient has normal interpersonal interactions. MUSCULOSKELETAL Patient's lateral malleolus is swollen and ecchymotic as is the lateral aspect of her foot but there is no tenderness in the foot. Patient does have some tenderness on the proximal fibula Course Vital Signs 10/21/23 12:07 Temperature 98.2 F Pulse Rate 74 Respiratory 18 Rate Blood Pressure 96/49 O2 Sat by Pulse 95 Oximetry Procedures - Orthopedic Splinting/Casting Injury #1 Side: right Lower Extremity Injury Location: long leg Lower Extremity Immobilizer: posterior splint Additional Comments: Patient had good sensation and cap refill after the splint was applied Medical Decision Making - Medical Decision Making Was pt. sent in by a medical professional or institution (, PA, NIGHT MANAGER, urgent care, hospital, or alf...) When possible be specific @ -No Did you speak to anyone other than the patient for history (EMS, parent, family, police, friend...)? What history was obtained from this source @ -Patient's friend gave a lot of the history. Did you review nursing and triage notes (agree or disagree)? Why? @ -I reviewed and agree with nursing and triage notes Were old charts reviewed (outside hosp., previous admission, EMS record, old EKG, old radiological studies, urgent care reports/EKG's, alf records)? Report findings @ -Reviewed prior charts and prior lab work on this patient Differential Diagnosis (chest pain, altered mental status, abdominal pain women, abdominal pain men, vaginal bleeding, weakness, fever, dyspnea, syncope, headache, dizziness, GI bleed, back pain, seizure, CVA, palpatations, mental health, musculoskeletal)? @ -Differential Musculoskeletal Muscular strain, contusion, ligament sprain, fracture, arthritis, septic arthritis, bursitis, cellulitis, muscle spasm, nerve compression, DVT, arterial occlusion, herpes zoster, electrolyte abnormality, tumor.... This is not meant to be in all inclusive list EKG interpreted by me (3pts min.). @ -As above X-rays interpreted by me (1pt min.). @ -X-ray of the ankle and tib-fib show a proximal fibular fracture with minimal displacement as well as medial malleolus fracture site that had previous surgery and screws. CT interpreted by me (1pt min.). @ -None done U/S interpreted by me (1pt. min.). @ -None done What testing was considered but not performed or refused? (CT, X-rays, U/S, labs)? Why? @ -None What meds were considered but not given or refused? Why? @ -None Did you discuss the management of the patient with other professionals (professionals i.e. , PA, NIGHT MANAGER, lab, RT, psych nurse, oncology social work, maintenance clerk, teacher, juvenile probation officer, case sealer)? Give summary @ -No Was smoking cessation discussed for >3mins.? @ -No Was critical care preformed (if so, how long)? @ -No Were there social determinants of health that impacted care today? How? (Homelessness, low income, unemployed, alcoholism, drug addiction, transportation, low edu. Level, literacy, decrease access to med. care, penitentiary, rehab)? @ -No Was there de-escalation of care discussed even if they declined (Discuss DNR or withdrawal of care, Hospice)? DNR status @ -No What co-morbidities impacted this encounter? (DM, HTN, Smoking, COPD, CAD, Cancer, CVA, ARF, Chemo, Hep., AIDS, mental health diagnosis, sleep apnea, morbid obesity)? @ -None Was patient admitted / discharged? Hospital course, mention meds given and route, prescriptions, significant lab abnormalities, going to OR and other pertinent info. @ -Patient had 2 fractures on the x-ray one of the medial malleolus and one of the proximal fibula. Patient had a splint placed by myself. Patient states she cannot use crutches so she has a wheelchair that she will use. Patient states she will follow-up with orthopedics either today or tomorrow Undiagnosed new problem with uncertain prognosis? @ -No Drug Therapy requiring intensive monitoring for toxicity (Heparin, Nitro, Insulin, Cardizem)? @ -No Were any procedures done? @ -No Diagnosis/symptom? @ -Proximal fibular fracture and medial malleolus fracture Acute, or Chronic, or Acute on Chronic? @ -Acute Uncomplicated (without systemic symptoms) or Complicated (systemic symptoms)? @ -Uncomplicated Side effects of treatment? @ -No Exacerbation, Progression, or Severe Exacerbation? @ -No Poses a threat to life or bodily function? How? (Chest pain, [place], [place], pneumonia, PE, COPD, DKA, ARF, appy, cholecystitis, CVA, Diverticulitis, Homicidal, Suicidal, threat to staff... and all critical care pts) @ -No Disposition Clinical Impression: Fall, Fibula fracture, Fractured medial malleolus Disposition: HOME SELF-CARE Condition: Good Instructions (If sedation given, give patient instructions): Fall Prevention for Older Adults (ED), Leg Fracture (ED), Ankle Fracture (ED) Additional Instructions: Patient has to follow-up with orthopedics today or tomorrow. Patient is to be nonweightbearing Is patient prescribed a controlled substance at d/c from ED?: No Referrals: Andrea Casanova DO [Primary Care Provider] - 1-2 days Time of Disposition: 13:34
--- NOTE | 2023-10-21 13:00 | XR ---
EXAMINATION TYPE: XR ankle complete RT DATE OF EXAM: 10/21/2023 COMPARISON: NONE HISTORY: Pain FINDINGS: Three views of the ankle demonstrate the ankle mortise to be intact and symmetric. - Diffuse soft ti ssue edema with postsurgical changes. While the screws of the fixation plate and the fibula dislodged but is stable from prior exam. There is a lucency along the medial malleolus suspicious for a fractu re. Large calcaneal spur. IMPRESSION: 1. Findings are suspicious for a fracture of the medial malleolus correlate with point tenderness.
--- NOTE | 2023-10-21 13:05 | XR ---
EXAMINATION TYPE: XR knee complete RT DATE OF EXAM: 10/21/2023 COMPARISON: NONE HISTORY: Pain TECHNIQUE: Three views are submitted. FINDINGS: Mild osteopenia osteoarthritis with an oblique fracture of the proximal diaphysis fibula. There is a linear lucency through the medial malleolus suggestive of a fracture best noted on the lateral view. IMPRESSION: 1. Oblique fracture proximal diaphysis fibula. 2. Findings are suggestive of medial malleolar fracture with extension to the postsurgical screw.
--- NOTE | 2023-10-21 13:06 | XR ---
EXAMINATION TYPE: XR tibia fibula RT DATE OF EXAM: 10/21/2023 COMPARISON: NONE HISTORY: Pain TECHNIQUE: Two views are submitted. FINDINGS: There is postoperative change around the ankle joint with findings suggestive of a fracture of the me dial malleolus mildly displaced. Oblique fracture proximal diaphysis fibula. Mild osteoarthritis of t he knee. Mild osteopenia. Vascular calcifications. IMPRESSION: 1. Mildly displaced oblique fracture proximal diaphysis fibula. 2. Mildly displaced fracture medial malleolus.
[2023-10-21 14:20] VITALS: BP 133/80; PULSE 54
== END 2023-10-21 13:53 | disposition home or self-care (01) ==
LOC: EC 12:02
DX: S82.831A Other fracture of upper and lower end of right fibula, initial encounter for closed fracture (principal); E11.22 Type 2 diabetes mellitus with diabetic chronic kidney disease; N18.9 Chronic kidney disease, unspecified; F20.9 Schizophrenia, unspecified; F32.A Depression, unspecified; Z79.4 Long term (current) use of insulin; Z79.899 Other long term (current) drug therapy; Z88.8 Allergy status to other drugs, medicaments and biological substances; Z91.011 Allergy to milk products; W19.XXXA Unspecified fall, initial encounter; X50.1XXA Overexertion from prolonged static or awkward postures, initial encounter
CPT/HCPCS: 73590; 73562; 73610; 29505; 99284; 96372; J1885

== ENCOUNTER 2024-01-29 19:05 | Observation (INO) | payer OTHER ==
--- NOTE | 2024-01-29 19:18 | ED ---
General Adult HPI - General Stated complaint: altered Time Seen by Provider: 01/29/24 19:08 Source: patient, EMS, RN notes reviewed Mode of arrival: EMS Limitations: no limitations - History of Present Illness Initial comments: Patient is a 58-year-old female present to the emergency department by EMS after parents found her on the floor. Patient does live with her parents who came back from dinner and found her on the floor. Patient was less responsive and they did give IM glucagon. Patient does complain of left hip pain. Patient does not recall falling. EMS did provide some Narcan and feels patient improved with that. Patient denies any other area of injury or concern. Unclear what blood sugar was prior to glucagon. EMS reports blood sugar at 75. - Related Data Home Medications Medication Instructions Recorded Confirmed Insulin Aspart (For Pump) [NovoLOG 0.01 unit SQ-PUMP CONTINUOUS 05/24/17 10/03/23 (For Pump)] Escitalopram Oxalate [Lexapro] 20 mg PO DAILY 10/27/21 10/03/23 Haloperidol Decanoate [Haldol D] 150 mg IM Q14D 10/27/21 10/03/23 Glucagon [Gvoke Pfs 1-Pack Syringe] 1 mg SQ ONCE PRN 01/27/23 10/03/23 Previous Rx's Medication Instructions Recorded Cyclobenzaprine [Flexeril] 5 mg PO TID PRN #30 tablet 10/05/23 Allergies Allergy/AdvReac Type Severity Reaction Status Date / Time divalproex sodium AdvReac unable to Verified 10/21/23 12:09 [From Depakote] walk/talk Milk Containing Products AdvReac Nausea & Verified 10/21/23 12:09 (Dairy) Vomiting & [Dairy] Diarrhea paliperidone [From Invega] AdvReac Confusion Verified 10/21/23 12:09 risperidone [From Risperdal] AdvReac neutropenia Verified 10/21/23 12:09 cortisol AdvReac Unknown Uncoded 03/08/23 08:08 Review of Systems ROS Statement: Those systems with pertinent positive or pertinent negative responses have been documented in the HPI. ROS Other: All systems not noted in ROS Statement are negative. Constitutional: Denies: fever Eyes: Denies: eye pain ENT: Denies: ear pain Respiratory: Denies: cough, dyspnea Cardiovascular: Denies: chest pain Endocrine: Denies: fatigue Gastrointestinal: Denies: abdominal pain Genitourinary: Denies: dysuria Musculoskeletal: Reports: as per HPI Skin: Denies: rash Neurological: Denies: headache, weakness Past Medical History Past Medical History: Diabetes Mellitus Additional Past Medical History / Comment(s): Chronic kidney disease per patient History of Any Multi-Drug Resistant Organisms: None Reported Past Surgical History: Hysterectomy, Orthopedic Surgery, Tonsillectomy Additional Past Surgical History / Comment(s): Right ankle repair Past Anesthesia/Blood Transfusion Reactions: No Reported Reaction Past Psychological History: Depression, Schizophrenia Smoking Status: Never smoker Past Alcohol Use History: None Reported Past Drug Use History: None Reported General Exam Limitations: no limitations General appearance: alert, in no apparent distress Head exam: Present: atraumatic Eye exam: Present: normal appearance, PERRL, EOMI ENT exam: Present: normal oropharynx Neck exam: Present: normal inspection. Absent: tenderness Respiratory exam: Present: normal lung sounds bilaterally Cardiovascular Exam: Present: regular rate, normal rhythm GI/Abdominal exam: Present: soft. Absent: distended, tenderness Extremities exam: Present: normal inspection, full ROM (Discomfort with range of motion left hip). Absent: tenderness Neurological exam: Present: alert, oriented X3, CN II-XII intact. Absent: motor sensory deficit Expanded Neurological exam: Present: protecting the airway, other (Drowsy and slightly slow to respond.) Patient oriented to: Present: person, place, time Cranial nerves: EOM's Intact: Normal Motor strength exam: RUE: 5, LUE: 5, RLE: 5, LLE: 5 Eye Response: (3) open to voice Motor Response: (6) obeys commands Verbal Response: (5) oriented Psychiatric exam: Present: flat affect Skin exam: Present: normal color Course Vital Signs 01/29/24 19:19 Temperature 97.6 F Pulse Rate 59 L Respiratory 16 Rate Blood Pressure 133/63 O2 Sat by Pulse 96 Oximetry EKG Findings - EKG Results: EKG: interpreted by ERMD, sinus rhythm, normal axis, normal QRS, normal ST/T EKG shows: bradycardia Medical Decision Making - Medical Decision Making Was pt. sent in by a medical professional or institution (, PA, POOL HALL INSPECTOR, urgent care, hospital, or senior care...) When possible be specific @ -No Did you speak to anyone other than the patient for history (EMS, parent, family, police, friend...)? What history was obtained from this source @ -EMS provided history as patient does not recall the episode Did you review nursing and triage notes (agree or disagree)? Why? @ -I reviewed and agree with nursing and triage notes Were old charts reviewed (outside hosp., previous admission, EMS record, old EKG, old radiological studies, urgent care reports/EKG's, senior care records)? Report findings @ -No old charts were reviewed Differential Diagnosis (chest pain, altered mental status, abdominal pain women, abdominal pain men, vaginal bleeding, weakness, fever, dyspnea, syncope, headache, dizziness, GI bleed, back pain, seizure, CVA, palpatations, mental health, musculoskeletal)? @ -Differential Altered Mental Status: Hypoglycemia, DKA, hypercapnia, ETOH, overdose, CO poisoning, trauma, myxedema coma, HTN encephalopathy, infection, encephalitis, psychosis, intercranial hemorrhage, hepatic encephalopathy, meningitis, CVA, this is not meant to be an all-inclusive list EKG interpreted by me (3pts min.). @ -As above X-rays interpreted by me (1pt min.). @ -Chest x-ray and left hip/pelvic x-ray without obvious acute abnormality CT interpreted by me (1pt min.). @ -CT brain and C-spine without obvious acute abnormality. Radiologist interpretation pending U/S interpreted by me (1pt. min.). @ -None done What testing was considered but not performed or refused? (CT, X-rays, U/S, labs)? Why? @ -None What meds were considered but not given or refused? Why? @ -None Did you discuss the management of the patient with other professionals (professionals i.e. , PA, POOL HALL INSPECTOR, lab, RT, psych nurse, vp digital marketing social media and crm, regional wildlife agent, teacher, precinct commanding officer, trimming caser)? Give summary @ -Case discussed with Dr. Heath who will admit covering hospital call. Was smoking cessation discussed for >3mins.? @ -No Was critical care preformed (if so, how long)? @ -No Were there social determinants of health that impacted care today? How? (Home lessness, low income, unemployed, alcoholism, drug addiction, transportation, low edu. Level, literacy, decrease access to med. care, skilled nursing, rehab)? @ -No Was there de-escalation of care discussed even if they declined (Discuss DNR or withdrawal of care, Hospice)? DNR status @ -No What co-morbidities impacted this encounter? (DM, HTN, Smoking, COPD, CAD, Cancer, CVA, ARF, Chemo, Hep., AIDS, mental health diagnosis, sleep apnea, morbid obesity)? @ -None Was patient admitted / discharged? Hospital course, mention meds given and route, prescriptions, significant lab abnormalities, going to OR and other pertinent info. @ -Patient presents with unresponsive episode, unclear why. Patient will be admitted. Possible hypoglycemic episode. Admission orders written. Undiagnosed new problem with uncertain prognosis? @ -No Drug Therapy requiring intensive monitoring for toxicity (Heparin, Nitro, Insulin, Cardizem)? @ -No Were any procedures done? @ -No Diagnosis/symptom? @ -Unresponsive episode Acute, or Chronic, or Acute on Chronic? @ -Acute Uncomplicated (without systemic symptoms) or Complicated (systemic symptoms)? @ -Default Side effects of treatment? @ -No Exacerbation, Progression, or Severe Exacerbation? @ -No Poses a threat to life or bodily function? How? (Chest pain, [place], [place], pneumonia, PE, COPD, DKA, ARF, appy, cholecystitis, CVA, Diverticulitis, Homicidal, Suicida l, threat to staff... and all critical care pts) @ -No - Lab Data Result diagrams: 01/29/24 19:53 01/29/24 19:53 Lab Results 01/29/24 01/29/24 01/29/24 Range/Units 19:53 19:53 19:53 WBC 10.2 (3.8-10.6) k/uL RBC 4.11 (3.80-5.40) m/uL Hgb 12.9 (11.4-16.0) gm/dL Hct 39.5 (34.0-46.0) % MCV 96.2 (80.0-100.0) fL MCH 31.3 (25.0-35.0) pg MCHC 32.6 (31.0-37.0) g/dL RDW 13.4 (11.5-15.5) % Plt Count 187 (150-450) k/uL MPV 8.5 Neutrophils % 88 % Lymphocytes % 5 % Monocytes % 6 % Eosinophils % 0 % Basophils % 0 % Neutrophils # 8.9 H (1.3-7.7) k/uL Lymphocytes # 0.6 L (1.0-4.8) k/uL Monocytes # 0.6 (0-1.0) k/uL Eosinophils # 0.0 (0-0.7) k/uL Basophils # 0.0 (0-0.2) k/uL PT 10.8 (10.0-12.5) sec INR 1.0 (<1.2) APTT 23.8 (22.0-30.0) sec Sodium 139 (137-145) mmol/L Potassium 5.4 H (3.5-5.1) mmol/L Chloride 108 H (98-107) mmol/L Carbon Dioxide 25 (22-30) mmol/L Anion Gap 6 mmol/L BUN 27 H (7-17) mg/dL Creatinine 0.97 (0.52-1.04) mg/dL Est GFR (CKD-EPI)AfAm 74 (>60 ml/min/1.73 sqM) Est GFR (CKD-EPI)NonAf 64 (>60 ml/min/1.73 sqM) Glucose 141 H (74-99) mg/dL POC Glucose (mg/dL) (70-110) mg/dL POC Glu Bridge Maintainer ID Calcium 9.1 (8.4-10.2) mg/dL Total Bilirubin 0.5 (0.2-1.3) mg/dL AST 25 (14-36) U/L ALT 15 (4-34) U/L Alkaline Phosphatase 57 (38-126) U/L Troponin I (0.000-0.034) ng/mL Total Protein 6.7 (6.3-8.2) g/dL Albumin 4.2 (3.5-5.0) g/dL Salicylates <1.0 mg/dL Acetaminophen <10.0 ug/mL Serum Alcohol <10 mg/dL 01/29/24 01/29/24 Range/Units 19:53 19:56 WBC (3.8-10.6) k/uL RBC (3.80-5.40) m/uL Hgb (11.4-16.0) gm/dL Hct (34.0-46.0) % MCV (80.0-100.0) fL MCH (25.0-35.0) pg MCHC (31.0-37.0) g/dL RDW (11.5-15.5) % Plt Count (150-450) k/uL MPV Neutrophils % % Lymphocytes % % Monocytes % % Eosinophils % % Basophils % % Neutrophils # (1.3-7.7) k/uL Lymphocytes # (1.0-4.8) k/uL Monocytes # (0-1.0) k/uL Eosinophils # (0-0.7) k/uL Basophils # (0-0.2) k/uL PT (10.0-12.5) sec INR (<1.2) APTT (22.0-30.0) sec Sodium (137-145) mmol/L Potassium (3.5-5.1) mmol/L Chloride (98-107) mmol/L Carbon Dioxide (22-30) mmol/L Anion Gap mmol/L BUN (7-17) mg/dL Creatinine (0.52-1.04) mg/dL Est GFR (CKD-EPI)AfAm (>60 ml/min/1.73 sqM) Est GFR (CKD-EPI)NonAf (>60 ml/min/1.73 sqM) Glucose (74-99) mg/dL POC Glucose (mg/dL) 142 H (70-110) mg/dL POC Glu Bridge Maintainer ID Darrius Benitez Calcium (8.4-10.2) mg/dL Total Bilirubin (0.2-1.3) mg/dL AST (14-36) U/L ALT (4-34) U/L Alkaline Phosphatase (38-126) U/L Troponin I <0.012 (0.000-0.034) ng/mL Total Protein (6.3-8.2) g/dL Albumin (3.5-5.0) g/dL Salicylates mg/dL Acetaminophen ug/mL Serum Alcohol mg/dL Disposition Clinical Impression: Unresponsive episode Disposition: ADMITTED IP TO THIS [facility] Is patient prescribed a controlled substance at d/c from ED?: No Referrals: Andrea Casanova DO [Primary Care Provider] - 1-2 days Time of Disposition: 21:26
[2024-01-29 19:57] LABS: Glucose,Whole Blood 142 mg/dL (70-110)
[2024-01-29 20:30] LABS: Basophils % (A) 0 %; Eosinophils % (A) 0 %; HCT 39.5 % (34.0-46.0); HGB 12.9 gm/dL (11.4-16.0); Lymphocytes # (A) 0.6 k/uL (1.0-4.8); Lymphocytes % (A) 5 %; MCH 31.3 pg (25.0-35.0); MCHC 32.6 g/dL (31.0-37.0); MCV 96.2 fL (80.0-100.0); Mean Platelet Volume 8.5; Monocytes # (A) 0.6 k/uL (0-1.0); Monocytes % (A) 6 %; Neutrophils # (A) 8.9 k/uL (1.3-7.7); Neutrophils % (A) 88 %; Platelet Count 187 k/uL (150-450); RBC 4.11 m/uL (3.80-5.40); RDW 13.4 % (11.5-15.5); WBC 10.2 k/uL (3.8-10.6)
[2024-01-29 20:43] LABS: Partial Thromboplastin Time 23.8 sec (22.0-30.0); Prothrombin Time 10.8 sec (10.0-12.5)
[2024-01-29 20:55] LABS: ALT 15 U/L (4-34); AST 25 U/L (14-36); Acetaminophen <10.0 ug/mL; African American GFR (CKD) 74 (>60 ml/min/1.73 sqM); Albumin 4.2 g/dL (3.5-5.0); Alcohol <10 mg/dL; Alkaline Phosphatase 57 U/L (38-126); Anion Gap 6 mmol/L; Blood Urea Nitrogen 27 mg/dL (7-17); Calcium 9.1 mg/dL (8.4-10.2); Carbon Dioxide 25 mmol/L (22-30); Chloride 108 mmol/L (98-107); Glucose 141 mg/dL (74-99); Non-African American GFR(CKD) 64 (>60 ml/min/1.73 sqM); Potassium 5.4 mmol/L (3.5-5.1); Salicylate <1.0 mg/dL; Sodium 139 mmol/L (137-145); Total Bilirubin 0.5 mg/dL (0.2-1.3); Total Protein 6.7 g/dL (6.3-8.2)
[2024-01-29] MEDS ORDERED: NALOXONE 0.4 MG/ML 1 ML VIAL IV PRN (21:26)
[2024-01-29] MEDS: MORPHINE SULFATE 4 MG/ML SYRINGE IV PRN (21:38)
[2024-01-29 22:16] LABS: Glucose,Whole Blood 131 mg/dL (70-110)
--- NOTE | 2024-01-29 23:18 | XR ---
EXAMINATION TYPE: XR chest 1V portable DATE OF EXAM: 01/29/2024 COMPARISON: NONE HISTORY: Pain TECHNIQUE: Single frontal view of the chest is obtained. FINDINGS: Is increased density in the right upper lobe. Left lung clear. Limited inspiration. Underl erin COPD. Chronic appearing deformity of the right clavicle. Degenerative changes of the spine. No o bvious pleural effusion or pneumothorax. IMPRESSION: Exam limited by reduced inspiration. Subsegmental changes in the right upper lobe could related atelectasis or infiltrate correlate clinically.
--- NOTE | 2024-01-29 23:33 | CT ---
EXAMINATION TYPE: CT brain cspine wo con DATE OF EXAM: 01/29/2024 COMPARISON: 10/03/2023 HISTORY: FELL, pain CT DLP: 1379.7 mGycm Automated exposure control for dose reduction was used. TECHNIQUE: CT scan of the head and cervical spine are performed without contrast. Dr. Khurram Foss did not read cases for over 3 hours and case is presented to ct 11:26 PM. FINDINGS: Assessment for subtle hemorrhage is limited particularly along the periphery of the cereb ral hemispheres due to artifact. Grossly no sizable acute intracranial hemorrhage, mass effect, or mi dline shift identified. There is mild generalized degenerative change with small focal areas of low attenuation involving the basal ganglia most typical remote lacunar infarct. Hypoattenuation in the white matter nonspecific b ut most typical remote microvascular ischemia.. The globes are intact and the visualized sinuses are clear. There is dense calcification of the cerebellar tentorium stable from prior exam. Cervical spine is visualized in its entirety from C1 through upper thoracic levels and demonstrates s atisfactory alignment without evidence of acute fracture or dislocation. Prevertebral soft tissue ap pears within normal limits. The C1-C2 articulation is unremarkable. Groundglass changes involving the lung apices. Likely on the basis of atelectasis. There is a thyroid nodule. IMPRESSION: 1. There is no acute fracture or dislocation evident in the cervical spine. 2. No acute intracranial hemorrhage, mass effect, or midline shift is seen. 3. Right thyroid nodule.
--- NOTE | 2024-01-29 23:40 | XR ---
EXAMINATION TYPE: XR Hip LT and AP Pelvis DATE OF EXAM: 01/29/2024 COMPARISON: NONE HISTORY: Pain TECHNIQUE: A single AP view of the pelvis is obtained. Two views of the left hip are obtained. FINDINGS: There is diffuse osteopenia. SI joints demonstrate mild arthropathy. No acute fracture. No dislocation. Mild arthropathy of the hip joint. IMPRESSION: Diffuse osteopenia with mild arthropathy. No definite acute fracture. If there is difficu lty with weightbearing or high clinical suspicion then correlation with CT would be recommended.
[2024-01-29] MEDS: ONDANSETRON 4 MG/2 ML VIAL IVP STA (23:42)
[2024-01-30 03:50] LABS: Basophils % (A) 1 %; Eosinophils % (A) 0 %; HCT 40.7 % (34.0-46.0); HGB 12.9 gm/dL (11.4-16.0); Lymphocytes # (A) 0.8 k/uL (1.0-4.8); Lymphocytes % (A) 18 %; MCHC 31.6 g/dL (31.0-37.0); MCV 98.2 fL (80.0-100.0); Mean Platelet Volume 9.1; Monocytes # (A) 0.3 k/uL (0-1.0); Monocytes % (A) 6 %; Neutrophils # (A) 3.2 k/uL (1.3-7.7); Neutrophils % (A) 72 %; Platelet Count 159 k/uL (150-450); RBC 4.15 m/uL (3.80-5.40); RDW 13.4 % (11.5-15.5); WBC 4.4 k/uL (3.8-10.6)
[2024-01-30 04:46] LABS: ALT 15 U/L (4-34); AST 25 U/L (14-36); African American GFR (CKD) 78 (>60 ml/min/1.73 sqM); Albumin 3.7 g/dL (3.5-5.0); Alkaline Phosphatase 63 U/L (38-126); Anion Gap 8 mmol/L; Blood Urea Nitrogen 28 mg/dL (7-17); Calcium 8.7 mg/dL (8.4-10.2); Carbon Dioxide 20 mmol/L (22-30); Chloride 106 mmol/L (98-107); Glucose 278 mg/dL (74-99); Non-African American GFR(CKD) 68 (>60 ml/min/1.73 sqM); Potassium 5.9 mmol/L (3.5-5.1); Sodium 134 mmol/L (137-145); Total Bilirubin 0.6 mg/dL (0.2-1.3)
[2024-01-30] MEDS ORDERED: NON FORMULARY DRUG (Glucagon Emergency Kit 1 MG Kit) IM PRN (10:00)
--- NOTE | 2024-01-30 10:00 | P.HPIM ---
History of Present Illness Patient is a pleasant 58-year-old female lives with her mother does have history of diabetes mellitus came in because she was found less responsive when family came back. Unknown what her blood sugars are during it but during that time patient is on insulin pump because of which family ended up giving her glucagon. When EMS arrived her blood sugars were 75 probably because of glucagon. Patient does not have any seizure history denies any syncope history patient EKG is within normal limits I do not see any echocardiogram recently ordering an echocardiogram unknown why patient lost consciousness there is no evidence of infection so far urine drug screen and urine analysis are pending patient does not have any significant cough leukocytosis or fever. Patient denies any pain anywhere. Patient is unable to urinate and found to have urinary retention of 500 on bladder scan. Neurology was consulted for evaluation for seizure. Patient mental status is at her baseline and patient is alert oriented x 3 REVIEW OF SYSTEMS: CONSTITUTIONAL: No fever, no malaise, no fatigue. HEENT: No recent visual problems or hearing problems. Denied any sore throat. CARDIOVASCULAR: No chest pain, orthopnea, PND, no palpitations, no syncope. PULMONARY: No shortness of breath, no cough, no hemoptysis. GASTROINTESTINAL: No diarrhea, no nausea, no vomiting, no abdominal pain. NEUROLOGICAL: No headaches, no weakness, no numbness. HEMATOLOGICAL: Denies any bleeding or petechiae. GENITOURINARY: Denies any burning micturition, frequency, or urgency. MUSCULOSKELETAL/RHEUMATOLOGICAL: Denies any joint pain, swelling, or any muscle pain. ENDOCRINE: Denies any polyuria or polydipsia. The rest of the 14-point review of systems is negative. PHYSICAL EXAMINATION: GENERAL: The patient is alert and oriented x3, not in any acute distress. Well developed, well nourished. HEENT: Pupils are round and equally reacting to light. EOMI. No scleral icterus. No conjunctival pallor. Normocephalic, atraumatic. No pharyngeal erythema. No thyromegaly. CARDIOVASCULAR: S1 and S2 present. No murmurs, rubs, or gallops. PULMONARY: Chest is clear to auscultation, no wheezing or crackles. ABDOMEN: Soft, nontender, nondistended, normoactive bowel sounds. No palpable organomegaly. MUSCULOSKELETAL: No joint swelling or deformity. EXTREMITIES: No cyanosis, clubbing, or pedal edema. NEUROLOGICAL: Gross neurological examination did not reveal any focal deficits. SKIN: No rashes. Assessment and plan -An episode of unresponsiveness etiology is not clear will evaluate for syncope seizure most probably secondary to hypoglycemia patient uses an insulin pump patient will be resumed on insulin pump and watch her how she is doing during this hospitalization patient was started on IV fluids and will be monitored. -Diabetes mellitus type 2 management as mentioned above -Depression/schizophrenia patient will be resumed on her home medications DVT prophylaxis: Lovenox Past Medical History Past Medical History: Diabetes Mellitus Additional Past Medical History / Comment(s): Chronic kidney disease per patient History of Any Multi-Drug Resistant Organisms: None Reported Past Surgical History: Hysterectomy, Orthopedic Surgery, Tonsillectomy Additional Past Surgical History / Comment(s): Right ankle repair Past Anesthesia/Blood Transfusion Reactions: No Reported Reaction Past Psychological History: Depression, Schizophrenia Smoking Status: Never smoker Past Alcohol Use History: None Reported Past Drug Use History: None Reported Medications and Allergies Home Medications Medication Instructions Recorded Confirmed Type Escitalopram Oxalate [Lexapro] 20 mg PO DAILY 10/27/21 01/30/24 History Haloperidol Decanoate [Haldol D] 100 mg IM Q14D 10/27/21 01/30/24 History Glucagon Emergency Kit 1 mg IM ONCE PRN 01/30/24 01/30/24 History INSULIN LISPRO (For Pump) [humaLOG 0.01 units SQ-PUMP CONTINUOUS 01/30/24 01/30/24 History (For Pump)] Allergies Allergy/AdvReac Type Severity Reaction Status Date / Time divalproex sodium AdvReac unable to Verified 01/30/24 09:07 [From Depakote] walk/talk Milk Containing Products AdvReac Nausea & Verified 01/30/24 09:07 (Dairy) Vomiting & [Dairy] Diarrhea paliperidone [From Invega] AdvReac Confusion Verified 01/30/24 09:07 risperidone [From Risperdal] AdvReac neutropenia Verified 01/30/24 09:07 cortisol AdvReac Unknown Uncoded 01/30/24 09:07 Physical Exam Vitals: Vital Signs Temp Pulse Resp BP Pulse Ox 01/30/24 07:21 63 18 81/40 91 L 01/30/24 05:11 61 16 93/52 96 01/30/24 02:59 60 18 103/52 95 01/30/24 00:47 60 16 105/54 97 01/29/24 22:59 61 14 116/58 98 01/29/24 21:47 59 L 16 123/61 96 01/29/24 19:19 97.6 F 59 L 16 133/63 96 Intake and Output 01/29/24 01/30/24 01/30/24 22:59 06:59 14:59 Other: Weight 76.657 kg Results CBC & Chem 7: 01/30/24 02:51 01/30/24 02:51 Labs: Abnormal Lab Results - Last 24 Hours (Table) 01/29/24 01/29/24 01/29/24 Range/Units 19:53 19:53 19:56 Neutrophils # 8.9 H (1.3-7.7) k/uL Lymphocytes # 0.6 L (1.0-4.8) k/uL Sodium (137-145) mmol/L Potassium 5.4 H (3.5-5.1) mmol/L Chloride 108 H (98-107) mmol/L Carbon Dioxide (22-30) mmol/L BUN 27 H (7-17) mg/dL Glucose 141 H (74-99) mg/dL POC Glucose (mg/dL) 142 H (70-110) mg/dL Total Protein (6.3-8.2) g/dL 01/29/24 01/30/24 01/30/24 Range/Units 22:15 02:51 02:51 Neutrophils # (1.3-7.7) k/uL Lymphocytes # 0.8 L (1.0-4.8) k/uL Sodium 134 L (137-145) mmol/L Potassium 5.9 H (3.5-5.1) mmol/L Chloride (98-107) mmol/L Carbon Dioxide 20 L (22-30) mmol/L BUN 28 H (7-17) mg/dL Glucose 278 H (74-99) mg/dL POC Glucose (mg/dL) 131 H (70-110) mg/dL Total Protein 6.0 L (6.3-8.2) g/dL
[2024-01-30] MEDS: HALOPERIDOL DECANOATE 100 MG/ML 1 ML VIAL IM SCH (11:03)
[2024-01-30] MEDS: ESCITALOPRAM 20 MG TAB PO SCH (11:07)
[2024-01-30] MEDS: SODIUM CHLORIDE 0.9% 1,000 ML IV SCH (11:09)
[2024-01-30 11:41] LABS: Glucose,Whole Blood 330 mg/dL (70-110)
[2024-01-30] MEDS: INSULIN LISPRO (For Pump) 100 UNIT/ML VIAL SQ-PUMP SCH (12:16)
[2024-01-30 12:20] LABS: Appearance,Urine Clear (Clear); Bilirubin,Urine Negative (Negative); Blood,Urine Negative (Negative); Color,Urine Light Yellow; Glucose,Urine (UA) Negative (Negative); Ketones,Urine 2+ (Negative); Leukocyte Esterase,Urine Small (Negative); Mucus,Urine Few /hpf; Nitrite,Urine Negative (Negative); PH, Urine 5.5 (5.0-8.0); Protein,Urine Negative (Negative); Squamous Epithelial Cell,Urine <1 /hpf (0-4); Urobilinogen,Urine <2.0 mg/dL (<2.0); WBC,Urine 19 /hpf (0-5)
[2024-01-30 12:28] LABS: Amphetamine Screen,Urine Not Detected (NotDetected); Barbiturate Screen,Urine Not Detected (NotDetected); Benzodiazepines Screen,Urine Not Detected (NotDetected); Cocaine Screen,Urine Not Detected (NotDetected); Methadone Screen, Urine Not Detected (NotDetected); Opiate Screen,Urine Detected (NotDetected); Oxycodone Screen, Urine Not Detected (NotDetected); Phencyclidine Screen,Urine Not Detected (NotDetected); Tricyclic Antidepressant,Urine Not Detected (NotDetected); Urn Cannabinoid Scrn Not Detected (NotDetected)
[2024-01-30] MEDS: ONDANSETRON 4 MG/2 ML VIAL IVP PRN (17:37)
[2024-01-30 20:12] LABS: Glucose,Whole Blood 172 mg/dL (70-110)
[2024-01-30 22:29] LABS: Glucose,Whole Blood 170 mg/dL (70-110)
[2024-01-30] MEDS ORDERED: INSULIN ASPART (NovoLOG) 100 UNIT/ML VIAL SQ PRN (22:38)
[2024-01-30] MEDS ORDERED: INSULIN PUMP BASAL RATES 1 EACH MISC MISCELLANE PRN (22:38)
[2024-01-30] MEDS ORDERED: INSPUCOR MISCELLANE PRN (22:38)
--- NOTE | 2024-01-30 23:11 | P.CNNES ---
History of Present Illness Consult date: 01/30/24 Requesting physician: Greg Power Reason for Consult: Unresponsive episode History of Present Illness: Patient is a 58-year-old female with history of diabetes for 50 years, lives with her mother, was brought to the hospital by ambulance yesterday at 7:05 PM for altered mental status. Patient does not remember details, but she believes that she was hypoglycemic. Family members not available at this time. As per EMS flowsheet patient's parents were present on the scene, he reports that last seen patient was at 3:30 PM. They arrived home at 6:20 PM and found patient in her bathroom on the floor unresponsive. The patient is known diabetic so family administered glucagon intramuscularly in her arm. Upon initial contact the patient was found in her bedroom lying on the floor on her left side. Patient's initial blood glucose was on the scene was 75 mg/dL. No obvious injuries noted. The pupils are pinpoint. EMS noted multiple pill bottles around the patient's bedroom. EMS administered 1 mg Narcan. A few minutes later the patient then became alert and complained of left hip pain but was unable to answer basic questions when asked her name or birthday. No obvious deformity or discoloration to the patient's left hip. Minor shortening visible to the left extremity. No instability or crepitus noted upon palpation of the patient's pelvis or left leg. Patient did have some slight redness to her brown. Patient was placed on the cervical collar. Patient's repeat blood glucose was 85 mg/dL. Patient's blood pressure was 142/64, pulse rate 57, respiration 18 saturation 95%. Blood test on arrival normal CBC PT PTT, normal sodium, potassium 5.4, normal renal functions, hepatic panel, troponin. Blood alcohol level negative. Urine drug screen positive for opiate. UA negative. EKG showed sinus bradycardia chest x-ray showed some atelectasis or infiltrate correlate clinically. CT of the head showed a tiny hemorrhage versus artifact along the periphery of the brain image 32. Right thyroid nodule. CT of the cervical spine showed no acute fracture or dislocation evident in the cervical spine. X-ray of the hip showed diffuse osteopenia with mild arthropathy. No definite acute fracture. Patient states she is a schizophrenic for last 49 years. Patient denies any history of stroke. Patient denies any tobacco or alcohol use in the past. She does not use any assistive device, unless she slightly dizzy when she uses a walker. Review of Systems Constitutional: Denies chills, Denies fever Eyes: bilateral pain (Has it for one year. Mostly present all the time. Seen collar closer lockstitch, don't know the cause.), denies blurred vision (Only if high blood sugar, gets blurred vision.), denies diplopia Ears: deny: decreased hearing, tinnitus Ears, nose, mouth and throat: Denies headache (Sometimes only), Denies sore throat Cardiovascular: Denies chest pain, Denies shortness of breath Respiratory: Denies cough, Denies excessive sputum Gastrointestinal: Reports constipation, Denies abdominal pain, Denies diarrhea, Denies nausea, Denies vomiting Genitourinary: Denies dysuria, Denies hematuria Musculoskeletal: Reports low back pain, Denies myalgias, Denies neck pain Integumentary: Denies pruritus, Denies rash Neurological: Reports as per HPI Psychiatric: Reports anxiety, Reports depression Past Medical History Past Medical History: Diabetes Mellitus Additional Past Medical History / Comment(s): Chronic kidney disease per patient History of Any Multi-Drug Resistant Organisms: None Reported Past Surgical History: Hysterectomy, Orthopedic Surgery, Tonsillectomy Additional Past Surgical History / Comment(s): Right ankle repair Past Anesthesia/Blood Transfusion Reactions: No Reported Reaction Past Psychological History: Depression, Schizophrenia Smoking Status: Never smoker Past Alcohol Use History: None Reported Past Drug Use History: None Reported Medications and Allergies Home Medications Medication Instructions Recorded Confirmed Type Escitalopram Oxalate [Lexapro] 20 mg PO DAILY 10/27/21 01/30/24 History Haloperidol Decanoate [Haldol D] 100 mg IM Q14D 10/27/21 01/30/24 History Glucagon Emergency Kit 1 mg IM ONCE PRN 01/30/24 01/30/24 History INSULIN LISPRO (For Pump) [humaLOG 0.01 units SQ-PUMP CONTINUOUS 01/30/24 01/30/24 History (For Pump)] Allergies Allergy/AdvReac Type Severity Reaction Status Date / Time divalproex sodium AdvReac unable to Verified 01/30/24 09:07 [From Depakote] walk/talk Milk Containing Products AdvReac Nausea & Verified 01/30/24 09:07 (Dairy) Vomiting & [Dairy] Diarrhea paliperidone [From Invega] AdvReac Confusion Verified 01/30/24 09:07 risperidone [From Risperdal] AdvReac neutropenia Verified 01/30/24 09:07 cortisol AdvReac Unknown Uncoded 01/30/24 09:07 Physical Examination - Vital Signs Vital Signs: Vital Signs Temp Pulse Resp BP Pulse Ox 01/30/24 20:56 63 16 81/43 93 L 01/30/24 20:08 64 16 101/48 96 01/30/24 18:34 64 16 91/42 94 L 01/30/24 16:00 69 18 83/45 93 L 01/30/24 15:00 68 17 95/50 97 01/30/24 14:09 71 16 89/49 97 01/30/24 12:12 68 16 85/39 93 L 01/30/24 10:36 98.7 F 74 18 83/38 97 01/30/24 07:21 63 18 81/40 91 L 01/30/24 05:11 61 16 93/52 96 01/30/24 02:59 60 18 103/52 95 01/30/24 00:47 60 16 105/54 97 01/29/24 22:59 61 14 116/58 98 Patient is a middle aged female, in no acute distress. Patient appears older than her stated age. Patient is using dark glasses at this time. Patient is alert awake oriented to time place and person. Speech and language functions are normal. Patient can name and repeat very well. No aphasia or dysarthria. Attention, concentration and fund of knowledge is adequate. Patient has somewhat slow mentation, prolonged latency to answer questions. On cranial nerve examination, pupils are equal, somewhat small, round and reacting to light, visual [place] are full on confrontation, with no neglect on double simultaneous simulation. Extraocular muscles are intact with no nystagmus. Face is symmetric, tongue protrudes to the midline. Palatal elevation and sensation normal, hearing and shoulder shrug normal, facial sensation normal. On muscle strength testing, there is no pronator drift and the strength is normal in arms and legs distally and proximally. Deep tendon reflexes are symmetric 1+ in the upper limbs at biceps and brachioradialis, 2 at the knees and ankles bilaterally and plantars are withdrawal bilaterally. Sensory to touch is equal with no neglect on double simultaneous stimulation. Cerebellar function showed no ataxia for [id number] testing. No dysdiadochokinesia. No ataxia for [id number] testing on either side. Tone and bulk of muscles normal. Gait deferred.. On general examination, there is no carotid bruit or murmur, S1-S2 audible. Chest is clear on consultation. Abdomen is soft nontender. No organomegaly, bowel sounds present. Peripheral pulses are present. No edema. Results - Laboratory Findings CBC and BMP: 01/30/24 02:51 01/30/24 02:51 Abnormal Lab Findings: Abnormal Labs 01/29/24 01/29/24 01/29/24 19:53 19:53 19:56 Neutrophils # 8.9 H Lymphocytes # 0.6 L Sodium Potassium 5.4 H Chloride 108 H Carbon Dioxide BUN 27 H Glucose 141 H POC Glucose (mg/dL) 142 H Total Protein Urine Ketones Ur Leukocyte Esterase Urine WBC Urine Mucus Urine Opiates Screen 01/29/24 01/30/24 01/30/24 22:15 02:51 02:51 Neutrophils # Lymphocytes # 0.8 L Sodium 134 L Potassium 5.9 H Chloride Carbon Dioxide 20 L BUN 28 H Glucose 278 H POC Glucose (mg/dL) 131 H Total Protein 6.0 L Urine Ketones Ur Leukocyte Esterase Urine WBC Urine Mucus Urine Opiates Screen 01/30/24 01/30/24 01/30/24 11:40 12:06 20:11 Neutrophils # Lymphocytes # Sodium Potassium Chloride Carbon Dioxide BUN Glucose POC Glucose (mg/dL) 330 H 172 H Total Protein Urine Ketones 2+ H Ur Leukocyte Esterase Small H Urine WBC 19 H Urine Mucus Few H Urine Opiates Screen Detected H 01/30/24 22:22 Neutrophils # Lymphocytes # Sodium Potassium Chloride Carbon Dioxide BUN Glucose POC Glucose (mg/dL) 170 H Total Protein Urine Ketones Ur Leukocyte Esterase Urine WBC Urine Mucus Urine Opiates Screen Assessment and Plan Assessment: * Episode of unresponsiveness, likely due to hypoglycemia. Patient's blood sugar was 44 at the scene. Patient states that she has history of passing out from hypoglycemia numerous times in the past. * Diabetes Plan: * Patient is positive that this event was related to hypoglycemia. Unfortunately blood sugar was not checked before she was given glucagon by the family members. When EMS arrived, her blood sugar was 75 (after glucagon was given). * Patient has been seen by myself on 03/08/2023 and had undergone EEG, which was normal and carotid Doppler showed no stenosis with antegrade flow in both vertebral arteries. 2D echo showed no abnormalities with EF of 55%. No need to repeat this testing. * Hemoglobin A1c 7.6 on 10/04/2023. * Patient was instructed to have family member check blood sugar in the future, around the time they administer glucagon, so as to have the exact diagnosis. * Neurologically, no other workup indicated. Please call neurology if any other concerns. Dr. Davis starting service in the morning. * Thank you for the consult.
[2024-01-31 02:18] LABS: Glucose,Whole Blood 110 mg/dL (70-110)
[2024-01-31 06:19] LABS: Glucose,Whole Blood 82 mg/dL (70-110)
[2024-01-31 08:33] VITALS: BP 99/57; PULSE 57; RESP 17; TEMP 98.3
[2024-01-31 08:58] LABS: BUN/Creat Ratio 21.56 Ratio (12.00-20.00); Blood Urea Nitrogen 34.5 mg/dL (9.0-27.0); Calcium 8.8 mg/dL (8.7-10.3); Chloride 104 mmol/L (96-109); Glucose 103 mg/dL (70-110); Magnesium 2.1 mg/dL (1.5-2.4); Potassium 4.7 mmol/L (3.5-5.5); Sodium 138 mmol/L (135-145)
[2024-01-31] MEDS: ACETAMINOPHEN TAB 325 MG TAB PO PRN (09:58)
[2024-01-31] MEDS: ENOXAPARIN 40 MG/0.4 ML SYRINGE SQ SCH (09:59)
[2024-01-31] MEDS: INSULIN PUMP MEAL BOLUS 1 UNIT MISC MISCELLANE SCH (10:00)
[2024-01-31 12:08] LABS: Glucose,Whole Blood 100 mg/dL (70-110)
[2024-01-31 14:30] LABS: Glucose,Whole Blood 188 mg/dL (70-110)
[2024-01-31] MEDS ORDERED: ESCITALOPRAM 20 MG TAB PO SCH (14:30)
[2024-01-31 15:27] LABS: African American GFR (CKD) 47 (>60 ml/min/1.73 sqM); Non-African American GFR(CKD) 41 (>60 ml/min/1.73 sqM)
[2024-01-31 17:07] LABS: Glucose,Whole Blood 206 mg/dL (70-110)
--- NOTE | 2024-01-31 18:12 | CA ---
Transthoracic Echo Report Name: Brandie Rodriguez Age: 58 Gender: F : 1965 Exam Date: 01/31/2024 08:27 Exam Location: [facility] Ht (in): 65 Wt (lb): 169 Ordering Physician: Alfonzo Dominguez MD Attending/Referring Phys: C D Stripper Sarita Garvey RDCS Procedure CPT: Indications: Syncope Cardiac Hx: Technical Quality: Technically difficult study Contrast 1: Definity Total Dose (mL): 2 Contrast 2: Total Dose (mL): MEASUREMENTS (Male / Female) Normal Values 2D ECHO LV Diastolic Diameter PLAX 3.9 cm 4.2 - 5.9 / 3.9 - 5.3 cm LV Systolic Diameter PLAX 2.6 cm IVS Diastolic Thickness 0.9 cm 0.6 - 1.0 / 0.6 - 0.9 cm LVPW Diastolic Thickness 1.0 cm 0.6 - 1.0 / 0.6 - 0.9 cm LV Relative Wall Thickness 0.5 LVOT Diameter 2.1 cm LV Diastolic Volume MOD BP 67.6 cm??? 67 - 155 / 56 - 104 cm??? LV Systolic Volume MOD BP 24.2 cm??? 22 - 58 / 19 - 49 cm??? LV Ejection Fraction MOD BP 64.2 % >= 55 % LV Cardiac Index MOD BP 1397.0 cm???/min???m??? LV Diastolic Volume MOD 4C 64.6 cm??? LV Systolic Volume MOD 4C 19.3 cm??? LV Ejection Fraction MOD 4C 70.1 % LV Cardiac Index MOD 4C 1458.0 cm???/min???m??? LV Diastolic Length 4C 6.4 cm LV Systolic Length 4C 4.7 cm LV Diastolic Volume MOD 2C 66.8 cm??? LV Systolic Volume MOD 2C 27.0 cm??? LV Ejection Fraction MOD 2C 59.6 % LV Cardiac Index MOD 2C 1282.1 cm???/min???m??? LV Diastolic Length 2C 6.0 cm LV Systolic Length 2C 5.4 cm LA Volume 46.8 cm??? 18 - 58 / 22 - 52 cm??? LA Volume Index 24.7 cm???/m??? 16 - 28 cm???/m??? Ascending Aorta Diameter 2.8 cm DOPPLER AV Peak Velocity 123.2 cm/s AV Peak Gradient 6.1 mmHg AV Mean Velocity 88.7 cm/s AV Mean Gradient 3.6 mmHg AV Velocity Time Integral 30.3 cm LVOT Peak Velocity 98.5 cm/s LVOT Peak Gradient 3.9 mmHg LVOT Velocity Time Integral 23.6 cm LVOT Stroke Volume 81.2 cm??? LVOT Stroke Volume Index 44.1 ml/m??? LVOT Cardiac Index 2614.4 cm???/min???m??? AV Area Cont Eq vti 2.7 cm??? AV Area Cont Eq pk 2.7 cm??? MV Area PHT 2.3 cm??? Mitral E Point Velocity 91.3 cm/s Mitral A Point Velocity 59.9 cm/s Mitral E to A Ratio 1.5 MV Deceleration Time 337.1 ms PV Peak Velocity 85.3 cm/s PV Peak Gradient 2.9 mmHg FINDINGS Left Ventricle Left ventricular ejection fraction is estimated at 60-65 %. Left ventricular cavity size normal. Left ventricular wall thickness normal. No obvious regional wall motion abnormalities. Right Ventricle Normal right ventricular size and function. Unable to estimate the right ventricular systolic pressure. Right Atrium Normal right atrial size. Left Atrium Normal left atrial size. Mitral Valve Structurally normal mitral valve. No mitral stenosis, regurgitation or prolapse. Aortic Valve Trileaflet aortic valve. No aortic valve stenosis or regurgitation. Tricuspid Valve Structurally normal tricuspid valve. No tricuspid stenosis. Trace tricuspid regurgitation. Pulmonic Valve Structurally normal pulmonic valve. No pulmonic stenosis. Trace pulmonic regurgitation. Pericardium No pericardial effusion. Aorta Normal size aortic root and proximal ascending aorta. CONCLUSIONS Normal LV function Dilated left atrium Previewed by: Dr. Raymundo Evans MD (Electronically Signed) Final Date: 31 January 2024 18:11
--- NOTE | 2024-02-02 23:31 | P.DS ---
Providers Date of admission: 01/29/24 21:26 Attending physician: Edilson Medeiros MD Consults: 01/29/24 21:26 Consult Physician Routine Consulting Provider: Lisa Powers Consult Reason/Comments: Unresponsive episode Do you want consulting provider notified?: Yes Primary care physician: Andrea [facility] Hospital Course: Final Diagnosis Episode of unresponsiveness, likely due to hypoglycemia. Patient's blood sugar was 44 at the scene. -Diabetes mellitus insulin dependent with history of hypoglycemia. Uses an insulin pump. -Acute kidney injury due to urinary retention, no longer retaining and creat im proving. Discharge Disposition Patient is stable for discharge home. Recommended to monitor blood glucose especially during episodes where hypoglycemia is suspected. Patient needs to repeat blood work in 2 to 3 days to monitor the creatinine. Hospital Course Patient is a pleasant 58-year-old female lives with her mother does have history of diabetes mellitus came in because she was found less responsive when family came back. Unknown what her blood sugars are during it but during that time patient is on insulin pump because of which family ended up giving her glucagon. When EMS arrived her blood sugars were 75 probably because of glucagon. Patient does not have any seizure history denies any syncope history patient EKG is within normal limits. Unknown why patient lost consciousness, there is no evidence of infection. Her urine drug toxicology does come for opiates. Patient does not have any significant cough leukocytosis or fever. Patient denies any pain anywhere. Patient is unable to urinate and found to have urinary retention of 500 on bladder scan. Neurology was consulted for evaluation for seizure. Patient mental status is at her baseline and patient is alert oriented x 3. Patient was evaluated by neurology back on 03/08/2023 and had undergone EEG, which was normal and carotid Doppler showed no stenosis with antegrade flow in both vertebral arteries. 2D echo showed no abnormalities with EF of 55%. No need to repeat this testing per neurology. Her echo was repeated this admission with normal LV systolic function and a dilated left atrium. [place] the episode of unresponsiveness was due to hypoglycemia. Patient did have an elevated creatinine 1.6 repeated was 1.4. She had urinary retention that has now resolved. post void residuals have been low. She has been up ambulating and urinating without difficulty. Please see medication reconciliation for a list of current medications. Thank you for allowing us to participate in the care of this patient. The impression and plan of care has been dictated by Consuelo Batista Nurse Practitioner as directed. Dr. Angelica MD I have performed a history and physical examination and medical decision making of this patient, discussed the same with the dictator, and agree with the dictators assessment and plan as written, documented as a scribe. Based on total visit time, I have performed more than 50% of this visit. Patient Condition at Discharge: Stable Plan - Discharge Summary New Discharge Prescriptions: New DULoxetine HCL [Cymbalta] 30 mg PO DAILY #30 cap Continue Haloperidol Decanoate [Haldol D] 100 mg IM Q14D Escitalopram Oxalate [Lexapro] 20 mg PO DAILY INSULIN LISPRO (For Pump) [humaLOG (For Pump)] 0.01 units SQ-PUMP CONTINUOUS Glucagon Emergency Kit 1 mg IM ONCE PRN PRN Reason: Hypoglycemia Discharge Medication List Escitalopram Oxalate [Lexapro] 20 mg PO DAILY 10/27/21 [History] Haloperidol Decanoate [Haldol D] 100 mg IM Q14D 10/27/21 [History] Glucagon Emergency Kit 1 mg IM ONCE PRN 01/30/24 [History] INSULIN LISPRO (For Pump) [humaLOG (For Pump)] 0.01 units SQ-PUMP CONTINUOUS 01/30/24 [History] DULoxetine HCL [Cymbalta] 30 mg PO DAILY #30 cap 01/31/24 [Rx] Follow up Appointment(s)/Referral(s): [facility] [Outside] - As Needed Andrea Casanova DO [Primary Care Provider] - 1-2 days Ambulatory/Diagnostic Orders: Basic Metabolic Panel [LAB.AMB] Time Frame: 3 Days, Location: None Selected Patient Instructions/Handouts: Syncope (DC), Hypoglycemia in a Person with Diabetes (DC) Discharge/Stand Alone Forms: Community Resources Discharge Disposition: HOME SELF-CARE
== END 2024-01-31 17:45 | disposition home or self-care (01) ==
LOC: EC 19:05 → 6NMEDSUR 21:26
PROVIDERS: ADMIT Internal Medicine; ATTEND Internal Medicine
DX: E11.649 Type 2 diabetes mellitus with hypoglycemia without coma (principal); M16.12 Unilateral primary osteoarthritis, left hip; M85.80 Other specified disorders of bone density and structure, unspecified site; F20.9 Schizophrenia, unspecified; F32.A Depression, unspecified; E04.1 Nontoxic single thyroid nodule; R00.1 Bradycardia, unspecified; R33.9 Retention of urine, unspecified; Z96.41 Presence of insulin pump (external) (internal); Z79.4 Long term (current) use of insulin; Z79.899 Other long term (current) drug therapy; Z88.8 Allergy status to other drugs, medicaments and biological substances; Z91.011 Allergy to milk products
CPT/HCPCS: 96372; 96376; 96374; 96375; 99285; 36415; 93005; 97162; 80053 ×2; 80048; 82565; 83735; 84484 ×2; 85025 ×2; 85610; 85730; 81001; 80306; 80143; 80179; 73502; 71045; 72125; 70450; G0378 ×3; C8929; G0480; J2270; J2405 ×2; J1650; Q9957; 80320; 93306